=== PATIENT | male | born 1945 | race Caucasian/White ===

== ENCOUNTER 2016-05-28 14:17 | Emergency (ER) | payer MEDICARE, MEDICAID ==
[2016-05-28 16:53] VITALS: BP 107/72
--- NOTE | 2016-05-28 17:07 | UC ---
Respiratory Complaint HPI - HPI Summary HPI Summary: Pt is [facility] by caregiver [facility]. weekend caregiver reports that pt has had a cough and fatigue X 2 days. Caregiver reports that pt c/o generalized malaise X 2-3 days and sleeping more than usual. Pt has c/o sore throat. Pt is a resident in pen[facility] and has cognitive and physical limitations. - History of Current Complaint Chief Complaint: UCGeneralIllness Stated Complaint: upper respiratory complaint Time Seen by Provider: 05/28/16 16:55 Hx Obtained From: Family/Ship Fitter Onset/Duration: Gradual Onset, Lasting Days Timing: Constant Severity Initially: Mild Severity Currently: Mild Character: Cough: Nonproductive Aggravating Factors: Recumbent Position Associated Signs And Symptoms: Positive: Nasal Congestion Related History: Healthcare Acquired Pneumonia: Lives at [facility] - [facility] - Risk Factors Pulmonary Embolism Risk Factors: Negative Tuberculosis Risk Factors: Communal Living - Allergies/Home Medications Allergies/Adverse Reactions: Allergies Allergy/AdvReac Type Severity Reaction Status Date / Time No Known Allergies Allergy Verified 05/28/16 16:43 Home Medications: Home Medications Benzonatate CAP* [Tessalon 100 MG CAP*] 100 mg PO TID 05/28/16 [History Confirmed 05/28/16] Droxidopa [Northera] 600 mg PO TID 05/28/16 [History Confirmed 05/28/16] Primidone TAB(*) [Mysoline TAB(*)] 50 mg PO DAILY 05/28/16 [History Confirmed ] Primidone TAB(*) [Mysoline TAB(*)] 100 mg PO BEDTIME 05/28/16 [History Confirmed 05/28/16] PMH/Surg Hx/FS Hx/Imm Hx Previously Healthy: No - see pmh, lives in [facility]iary Respiratory History Of: Reports: COPD Neurological History Of: Reports: Seizures - Surgical History Surgical History: Yes Surgery Procedure, Year, and Place: Gallbladder, Bilateral cataract surgery - Family History Known Family History: Positive: Other - positive [facility] for cough - Social History Occupation: Disabled Lives: Alf Alcohol Use: None Substance Use Type: None Smoking Status (MU): Never Smoked Tobacco Review of Systems Constitutional: Fatigue Skin: Negative Eyes: Negative ENT: Sore Throat Respiratory: Cough Cardiovascular: Negative Gastrointestinal: Negative Genitourinary: Negative Motor: Negative Neurovascular: Negative Musculoskeletal: Negative Neurological: Negative, Other - cognitive and physcial disability pre-existing Psychological: Negative All Other Systems Reviewed And Are Negative: Yes Physical Exam Triage Information Reviewed: Yes Appearance: Well-Appearing, Thin, Other: - resting comfortably in wheelchair Vital Signs: Initial Vital Signs Temp 99.0 F 05/28/16 16:46 Pulse 84 05/28/16 16:46 Resp 18 05/28/16 16:46 BP 107/72 05/28/16 16:46 Pulse Ox 100 05/28/16 16:46 Vital Signs Reviewed: Yes Eye Exam: Normal ENT Exam: Normal Neck exam: Normal Respiratory Exam: Normal Respiratory: Positive: Normal breath sounds, No respiratory distress Cardiovascular Exam: Normal Musculoskeletal Exam: Other Musculoskeletal: Positive: Strength Limited @ - sitting in wheelchair, ROM Limited @ - sitting in wheelchair, Neurological Exam: Other Neurological: Positive: Alert Psychological Exam: Other - cognitive disability Skin Exam: Normal UC Diagnostic Evaluation - Laboratory O2 Sat by Pulse Oximetry: 100 Respiratory Course/Dx - Differential Dx/Diagnosis Differential Diagnosis/HQI/PQRI: Bronchitis, Other - URI Provider Diagnoses: URI. acute cough. sore throat Discharge - Discharge Plan Condition: Stable Disposition: HOME Prescriptions: predniSONE TAB* [Deltasone TAB*] 30 mg PO DAILY #12 tab Patient Education Materials: Upper Respiratory Infection (ED), Acute Cough (ED) Referrals: Rose Eduardo MD [Medical Doctor] - 1 Day (Please follow up with your PCP in 1 day or as needed. If unable to get a timely appointment with your PCP pleae return to clinic as needed. )
== END 2016-05-28 17:22 | disposition home or self-care (01) ==
LOC: UCCORT 14:17
DX: J06.9 Acute upper respiratory infection, unspecified (principal); R05 Cough; J02.9 Acute pharyngitis, unspecified; Z90.49 Acquired absence of other specified parts of digestive tract
CPT/HCPCS: 99212; G0463

== ENCOUNTER 2017-10-23 08:31 | Emergency (ER) | payer MEDICARE, MEDICAID ==
[2017-10-23 08:46] VITALS: BP 112/70
--- NOTE | 2017-10-23 09:16 | RAD ---
HISTORY: left hand swelling , no known injury COMPARISONS: None VIEWS: 3, Frontal, lateral, and oblique views of the left hand FINDINGS: BONE DENSITY: Normal. BONES: There is chronic appearing post traumatic deformity of the distal radius and ulna. 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 There is osteoarthritis of the first CMC and STT joints. There is mild osteoarthritis of the interphalangeal joints.. ALIGNMENT: There is no dislocation. SOFT TISSUES: Unremarkable. OTHER FINDINGS: None. 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 NO ACUTE OSSEOUS INJURY. IF SYMPTOMS PERSIST, RECOMMEND REPEAT IMAGING
--- NOTE | 2017-10-23 09:37 | UC ---
Hand/Wrist HPI - HPI Summary HPI Summary: left hand / wrist swelling x 1 day the swelling was noted by the staff no known injury , denies any pain - History Of Current Complaint Chief Complaint: UCUpperExtremity Stated Complaint: LEFT HAND SWELLING Time Seen by Provider: 10/23/17 08:48 Hx Obtained From: Patient, Family/Slot Machine Repairer Onset/Duration: Gradual Onset, Lasting Days - 1, Still Present Severity Initially: Moderate Severity Currently: Moderate Pain Intensity: 0 Pain Scale Used: no pain Aggravating Factor(s): Other - nothing Alleviating Factor(s): Nothing Associated Signs And Symptoms: Positive: Swelling. Negative: Redness, Bruising , Fever, Weakness, Numbness/Tingling - Allergies/Home Medications Allergies/Adverse Reactions: Allergies Allergy/AdvReac Type Severity Reaction Status Date / Time No Known Allergies Allergy Verified 10/23/17 08:46 Home Medications: Home Medications Amantadine CAP* [Symmetrel CAP*] 50 mg PO DAILY 10/23/17 [History Confirmed ] Carbidopa/Levodop 25/100 MG(*) [Sinemet 25/100 TAB(*)] 2 tab PO SEE INSTRUCTIONS 10/23/17 [History Confirmed 10/23/17] Donepezil TAB* [Aricept 5 MG TAB*] 5 mg PO DAILY 10/23/17 [History Confirmed ] Multivit-Min/FA/Lycopen/Lutein [Centrum Silver Men Tablet] 1 each PO DAILY 10/23 [History Confirmed 10/23/17] PMH/Surg Hx/FS Hx/Imm Hx - Additional Past Medical History Additional PMH: Parkinson , - Surgical History Surgical History: Yes Surgery Procedure, Year, and Place: Gallbladder, Bilateral cataract surgery - Family History Known Family History: Positive: Other - positive [facility] for cough Negative: Diabetes - Social History Alcohol Use: None Substance Use Type: None Smoking Status (MU): Never Smoked Tobacco Review of Systems Constitutional: Negative Skin: Negative Is Patient Immunocompromised?: No All Other Systems Reviewed And Are Negative: Yes Physical Exam Triage Information Reviewed: Yes Appearance: Well-Appearing, No Pain Distress, Well-Nourished Vital Signs: Initial Vital Signs Temp 98.2 F 10/23/17 08:41 Pulse 85 10/23/17 08:41 Resp 17 10/23/17 08:41 BP 112/70 10/23/17 08:41 Pulse Ox 99 10/23/17 08:41 Vital Signs Reviewed: Yes Eye Exam: Normal ENT: Positive: Normal ENT inspection, Hearing grossly normal, Pharynx normal Neck: Positive: Supple Respiratory: Positive: Chest non-tender, Lungs clear, Normal breath sounds Cardiovascular: Positive: RRR, No Murmur, Pulses Normal Musculoskeletal: Positive: Other: - + resting tremor , left Wrist : + swelling , no erythema, no tenderness, decrease ROM on flexion and extension Diagnostics - Laboratory Diagnostic Studies Completed/Ordered: xray left hand : IMPRESSION: 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 OSTEOARTHRITIS OF THE WRIST. NO ACUTE OSSEOUS INJURY. 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 NO ACUTE OSSEOUS INJURY. IF SYMPTOMS PERSIST, RECOMMEND REPEAT IMAGING - Billing Disposition and Condition Condition: STABLE Disposition: Home
== END 2017-10-23 09:36 | disposition home or self-care (01) ==
LOC: UCCORT 08:31
DX: M19.032 Primary osteoarthritis, left wrist (principal); M21.832 Other specified acquired deformities of left forearm; G20 Parkinson's disease
CPT/HCPCS: 99211; G0463

== ENCOUNTER 2017-12-28 18:04 | Emergency (ER) | payer MEDICARE, MEDICAID ==
--- OUTSIDE RECORDS SUMMARY | 2017-12-28 18:59 | XMS REPORT ---
:1945 External Reference #:[id number] [facility] Address [address] [place] [address] Phone [phone] Care Team Providers Name Role Phone Erinn Ordaz M.D. 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 Primary Care Physician Unavailable Payers Type Date Identification Numbers Payment Provider Subscriber Medicare Primary Policy Number: [id number] Medicare Matt Portillo Group Name: Medicare [address] PayID: [id number] [place] [address] Medicaid Policy Number: [id number] Medicaid Matt Portillo Group Name: 2 1 [address] PayID: [id number] [place] [address] Problems Date Description Provider Status Onset: 03/17/2011 Active infantile autism Yolanda Whitehead NP Active Onset: 03/17/2011 Chronic obstructive lung disease Yolanda Whitehead NP Active Onset: 03/17/2011 Cataract Yolanda Whitehead NP Active Onset: 06/21/2016 Chronic hypotension Erinn Ordaz M.D. Active Onset: 06/21/2016 Parkinson's disease Erinn Ordaz M.D. Active Onset: 12/13/2017 Immunization Rena Cardenas MD Active Onset: 12/13/2017 Abnormal weight gain Rena Cardenas MD Active Onset: 04/19/2017 Urine leukocyte test=+ Rena Cardenas MD Resolved Resolved: 06/12/2017 Family History Date Family Member(s) Problem(s) Comments Father due to Hypertension () Father due to Bladder Cancer () Father due to Diabetes () Mother due to jean claude's granulamotosis () First Brother IgA nephropathy First Sister Diabetes Mellitus Type 2 Social History Type Date Description Comments Lives With jail 6 others Diet Healthy, Well Balanced Occupation Disabled Cigarette Use Never Smoked Cigarettes ETOH Use Never used alcohol Smoking Patient has never smoked Allergies, Adverse Reactions, Alerts Date Description Reaction Status Severity Comments 07/18/2014 NKDA active Medications Medication Date Status Form Strength Qnty SIG Indications Ordering Provider Acetaminophen 12/13 Active Tablets 325mg 120ta 2 tabs by Ronald bs mouth every MD Rena 4 hours as needed for pain, headache, temp >101 Tussin DM 12/13 Active Liquid 100-10mg/ 355ml 10 ml q4h Ronald 5ML prn cough MD Rena Bacitracin 12/13 Active Ointment 500Unit/G 2043. apply to Ronald (External) M 800gm minoe cuts MD Rena and wounds 3x/day as needed Amantadine HCL 11/06 Active Tablets 100mg 90tab / Tab by Dayan s mouth once Nafisa, daily PNP-BC, [employer], Ibclc Jonah Elastic 10/25 Active Mis BNDG 3" Ok to D/C Cee Hanley/ use of jonah Nafisa, bandage PNP-BC, [employer], Ibclc Pseudoephedrine 12/12 Active Tablets 30mg 45tab Take 2 Sushma, s Tablets By Homer Plasencia Every M.DChaparrita 4 Hours as Needed For Nasal Congestion /Runny Nose *Max Daily Dose: 8 Tablets Cerovite Senior 09/12 Active Tablets 90tab Take 1 Sushma, s Tablet By Ernin Mouth Daily M.D. Northera 04/19 Active Capsules 300mg 180ca take 2 Brian ps capsules by MD Sid mouth three times daily. take last dose at least 3hours before bedtime Kaopectate Extra Active Suspension 525mg/15M 2 tbsp Q Unknown Strength /0000 L Loose Stool prn Mylanta Active Suspension 200-200-2 1 tbsp Q4H Unknown /0000 0mg/5ML prn Upset Stomach Hydrocortisone Active Cream 1% Apply qid Unknown Acetate 0000 prn For Minor Skin Rashes/Itch ing Donepezil HCL 00 Active Tablets 5mg 1 by mouth Unknown /0000 Dispers every day Carbidopa-Levodo 0000 Active Tablets 25-100mg take 2.5 Unknown pa /0000 tablets bid at 0700, 1500 Carbidopa-Levodo 0000 Active Tablets 25-100mg take 2 Unknown pa /0000 tablets twice daily at 1100 and 1900 Fluconazole 07/12 Hx Tablets 200mg 14tab 1 tab PO Q B37.0 Sushma, s daily x Erinn, - 7-14 days, M.D. 12/13 d/c 14 days if infection completely resolved Nystatin 07/10 Hx Suspension 082821Tbi 60ml 4 ml by B37.9 Qiana t/ML mouth four Marlyss - times a day B., PA 07/12 - swish in mouth and spit for 7 days. Benzonatate 05/26 Hx Capsules 100mg 30cap 1 cap by R05 Sushma s mouth three Erinn, - times a day M.D. 07/12 prn cough Midodrine HCL 03/30 Hx Tablets 2.5mg 90tab 1 tab tid Dayan s should not Nafisa, be taken PNP-BC, within 4 [employer], hours of Ibclc bedtime Northera 03/30 Hx Capsules 100mg 90cap 1 by mouth Brian s three times MD Sid - a day. 04/19 increase to desired effect up to 600 mg three times a day as instructed Primidone 03/09 Hx Tablets 50mg 90tab Take 1 I95.0 Dayan s Tablet By Nafisa, - Mouth Every PNP-BC, 07/12 Morning ; [employer] Take 2 Ibclc Tablets By Mouth AT Bedtime Multivitamin 02/08 Hx Tablets Adlt 50+ 90tab 1 tab PO Q Sushma, Adults 50+ /2015 s daily Carmel Plasencia Midodrine HCL 12/15 Hx Tablets 5mg 90tab take 1 tab Brian s by mouth MD Sid - three times 03/30 daily Northera 12/14 Hx Capsules 100mg 450ca Days 1-2: 1 Brian ps Capsule 3 MD Sid Times Daily, Days 3-4: 2 Capsules 3 Times Daily,Days 5-6: 3 Capsules 3 Times Daily, Days 7-8: 4 Capsule Carbidopa-Levodo 09/30 Hx Tablets 25-100mg 180ta Take 2 kayleigh Eduardo bs Tablets By Rose - Mouth 3 MD 12/13 Times Daily /2016 Sinemet 06/14 Hx Tablets 25-100mg 90tab 1 by mouth Alesha s every 8 Rose - MD sivakumar 09/30 SM Complete 01/25 Hx Tablets 30tab Take 1 Anneliese Eduardo s Tablet By Rose Mouth Daily , 8 Hour Pain 07/29 Hx Tablets ER 650mg 2 by mouth Alesha Relief every day q Rose 4 hrs MD nevin needed Bacitracin 07/29 Hx Ointment 500Unit/G 3.5un bid prn Alesha /2013 M its MD Rose Bismuth 07/29 Hx Suspension 262mg/15M 2 Jagdeep Eduardoalicylate L tablespoon Rose by mouth MD after each loose bm as needed Aluminum-Magnesi 07/29 Hx Suspension 200-200-2 by mouth q4 Alesha -Simethicone 0mg/5ML hours as Rose needed MD Hydrocortisone 07/29 Hx Cream 1% as needed Alesha Plus MD Rose Dextromethorphan 07/29 Hx Solution 10-100mg/ 400un 1 teaspoon Alesha, -Guaifenesin 5ML its by mouth Rose q6hr MD nevin needed Pseudoephedrine 07/29 Hx Tablets 30mg 30tab two tab by Alesha HCL s mouth every Rose 4 hour MD nevin needed nasal drainage Triamcinolone 10/30 Hx Cream 0.1% 30uni apply Alesha Acetonide ts spaingly Rose ga MD Multi 00 Hx Tablets 30tab 1 by mouth Alesha Vitamin/Minerals / s every day Rose Full Spectrum - MD 01/25 Multivital-M Hx Tablets 90tab 1 by mouth Sushma, / s every day Roxana Plasencia M.D. 02/08 Flomax Hx Capsules 0.4mg 30cap 1 by mouth Alesha, /0000 s every day Rose Schmidt MD 12/05 Carbidopa-Levodo Hx Tablets 25-100mg Take 2 Unknown pa /0000 Tablets By Mouth 3 Times Daily Bacitracin Hx Ointment 500Unit/G Apply as Unknown (External) /0000 M Needed To Minor Cuts/Wounds Until Healed Robitussin DM Hx Syrup 100-10mg/ 2 teaspoons Unknown /0000 5ML by mouth every 4 hours as needed for minor cough Sudafed Hx Tablets 30mg 2 tabs po Unknown /0000 q4h prn - nasal 12/12 congestion runny nose Mapap Hx Tablets 325mg 100ta Take 2 Sushma, /0000 bs Tablets By Erinn, - Mouth Every M.D. 12/13 4 Hours Needed For Temp>101/ Discomfort *Max Daily Dose: 8 Tablets Sinemet Hx Tablets 25-100mg 240ta 2 and 1/2 Ronald, /0000 bs tabs bid MD Rena and 2 tabs bid, 9 tabs total Acetaminophen Hx Solution 325mg/10. Unknown /0000 15ML Immunizations CPT Code Status Date Vaccine Lot # [id number] Given 12/13/2017 Influenza High Dose [id number] 72428 Given 12/13/2016 Influenza High Dose [id number] Given 06/21/2016 Tdap injection [id number] 37813 Given 06/21/2016 Pneumococcal Conjugate Vaccine 13 Valent For [id number] Intramuscular Use Q2038 Given 12/06/2015 Influenza Vaccine (Fluzone) Age 3 And Older [id number] Q2038 Given 01/08/2015 Influenza Vaccine (Fluzone) Age 3 And Older 23834 Given 02/05/2014 flu vaccination 65984 Given 01/01/2012 Pneumovax Injection 84001 Given 01/01/2012 flu vaccination 32739 Given 11/28/2010 flu vaccination 29276 Given 12/28/2009 flu vaccination 09838 Given 02/16/2009 flu vaccination 19823 Given 02/16/2009 H1N1 Immuniation Adminstration 04872 Given 12/11/2008 Hepatitis B Ofelia Adoles For Intramuscular Use 91527 Given 07/31/2008 Hepatitis B Ofelia Adoles For Intramuscular Use 72865 Given 06/11/2008 Hepatitis B Ofelia Adoles For Intramuscular Use Vital Signs Date Vital Result Comment 12/13/2017 BP Systolic 114 mmHg BP Diastolic 74 mmHg Body Temperature 96.3 F Heart Rate 90 /min Respiratory Rate 18 /min Height 71 inches 5'11" Weight 176.00 lb BMI (Body Mass Index) 24.5 kg/m2 BSA (Body Surface Area) 2.00 m2 [place] body weight in kilograms 78 O2 % BldC Oximetry 96 % 11/06/2017 Height 71 inches 5'11" [place] body weight in kilograms 78 08/17/2017 BP Systolic Sitting Left Arm 106 mmHg BP Diastolic Sitting Left Arm 60 mmHg Heart Rate 84 /min Respiratory Rate 16 /min Height 71 inches 5'11" Weight 169.00 lb BMI (Body Mass Index) 23.6 kg/m2 BSA (Body Surface Area) 1.96 m2 [place] body weight in kilograms 78 O2 % BldC Oximetry 98 % Room air 08/08/2017 BP Systolic Sitting Left Arm 116 mmHg BP Diastolic Sitting Left Arm 68 mmHg Body Temperature 97.8 F Heart Rate 76 /min Height 71 inches 5'11" Weight 165.00 lb BMI (Body Mass Index) 23.0 kg/m2 BSA (Body Surface Area) 1.94 m2 [place] body weight in kilograms 78 06/13/2017 BP Systolic Sitting Left Arm 118 mmHg BP Diastolic Sitting Left Arm 70 mmHg Heart Rate 80 /min Respiratory Rate 14 /min Height 72 inches 6'0" Weight 167.25 lb BMI (Body Mass Index) 22.7 kg/m2 BSA (Body Surface Area) 1.97 m2 [place] body weight in kilograms 81 04/19/2017 BP Systolic 108 mmHg BP Diastolic 69 mmHg Body Temperature 97.6 F Heart Rate 85 /min Respiratory Rate 17 /min Height 72 inches 6'0" Weight 169.00 lb BMI (Body Mass Index) 22.9 kg/m2 BSA (Body Surface Area) 1.98 m2 [place] body weight in kilograms 81 O2 % BldC Oximetry 98 % 02/12/2017 BP Systolic 96 mmHg BP Diastolic 62 mmHg Heart Rate 82 /min Respiratory Rate 16 /min Height 72 inches 6'0" Weight 164.00 lb BMI (Body Mass Index) 22.2 kg/m2 BSA (Body Surface Area) 1.96 m2 [place] body weight in kilograms 81 12/13/2016 BP Systolic 138 mmHg BP Diastolic 82 mmHg Height 72 inches 6'0" Weight 163.00 lb BMI (Body Mass Index) 22.1 kg/m2 BSA (Body Surface Area) 1.95 m2 [place] body weight in kilograms 81 10/10/2016 BP Systolic Sitting Left Arm 118 mmHg BP Diastolic Sitting Left Arm 68 mmHg Heart Rate 76 /min Respiratory Rate 16 /min Height 72 inches 6'0" Weight 159.00 lb BMI (Body Mass Index) 21.6 kg/m2 BSA (Body Surface Area) 1.93 m2 [place] body weight in kilograms 81 07/12/2016 BP Systolic Sitting Left Arm 96 mmHg BP Diastolic Sitting Left Arm 60 mmHg Height 72 inches 6'0" Weight 156.38 lb BMI (Body Mass Index) 21.2 kg/m2 BSA (Body Surface Area) 1.92 m2 [place] body weight in kilograms 81 07/10/2016 BP Systolic Sitting Right Arm 98 mmHg BP Diastolic Sitting Right Arm 58 mmHg BP Systolic Standing Resting Right Arm 96 mmHg BP Diastolic Standing Resting Right Arm 60 mmHg Heart Rate 72 /min Respiratory Rate 24 /min Height 72 inches 6'0" Weight 157.00 lb BMI (Body Mass Index) 21.3 kg/m2 BSA (Body Surface Area) 1.92 m2 06/21/2016 BP Systolic Sitting Left Arm 106 mmHg BP Diastolic Sitting Left Arm 54 mmHg Heart Rate 62 /min Height 72 inches 6'0" Weight 156.19 lb BMI (Body Mass Index) 21.2 kg/m2 BSA (Body Surface Area) 1.92 m2 [place] body weight in kilograms 81 05/26/2016 BP Systolic Sitting Left Arm 110 mmHg BP Diastolic Sitting Left Arm 60 mmHg Body Temperature 97.8 F Heart Rate 72 /min Respiratory Rate 16 /min Height 71 inches 5'11" Weight 158.06 lb BMI (Body Mass Index) 22.0 kg/m2 BSA (Body Surface Area) 1.91 m2 05/03/2016 BP Systolic Sitting Left Arm 92 mmHg BP Diastolic Sitting Left Arm 50 mmHg Heart Rate 68 /min Respiratory Rate 16 /min Height 71 inches 5'11" Weight 153.00 lb BMI (Body Mass Index) 21.3 kg/m2 BSA (Body Surface Area) 1.88 m2 03/30/2016 BP Systolic Sitting Right Arm 104 mmHg BP Diastolic Sitting Right Arm 52 mmHg Body Temperature 98.1 F Heart Rate 56 /min Respiratory Rate 16 /min Height 71 inches 5'11" Weight 159.00 lb BMI (Body Mass Index) 22.2 kg/m2 BSA (Body Surface Area) 1.91 m2 03/09/2016 BP Systolic Sitting Right Arm 106 mmHg BP Diastolic Sitting Right Arm 64 mmHg Body Temperature 97.9 F Heart Rate 72 /min Respiratory Rate 16 /min Height 71 inches 5'11" Weight 161.12 lb BMI (Body Mass Index) 22.5 kg/m2 BSA (Body Surface Area) 1.92 m2 [place] body weight in kilograms 78 02/01/2016 BP Systolic Sitting Left Arm 118 mmHg BP Diastolic Sitting Left Arm 74 mmHg Heart Rate 78 /min Respiratory Rate 16 /min 12/21/2015 BP Systolic Sitting Left Arm 110 mmHg BP Diastolic Sitting Left Arm 74 mmHg Heart Rate 88 /min Respiratory Rate 16 /min Height 70 inches 5'10" Weight 169.00 lb BMI (Body Mass Index) 24.2 kg/m2 BSA (Body Surface Area) 1.94 m2 [place] body weight in kilograms 75 12/15/2015 BP Systolic Sitting Left Arm 100 mmHg BP Diastolic Sitting Left Arm 64 mmHg Heart Rate 78 /min Height 71 inches 5'11" Weight 168.00 lb BMI (Body Mass Index) 23.4 kg/m2 BSA (Body Surface Area) 1.96 m2 12/06/2015 BP Systolic Lying Down Resting Right Arm 98 mmHg BP Diastolic Lying Down Resting Right Arm 60 mmHg Heart Rate 97 /min Respiratory Rate 18 /min Height 71 inches 5'11" Weight 170.00 lb BMI (Body Mass Index) 23.7 kg/m2 BSA (Body Surface Area) 1.97 m2 [place] body weight in kilograms 78 O2 % BldC Oximetry 98 % 06/15/2015 BP Systolic Sitting Left Arm 114 mmHg BP Diastolic Sitting Left Arm 66 mmHg Heart Rate 64 /min Respiratory Rate 19 /min Height 71 inches 5'11" Weight 175.00 lb BMI (Body Mass Index) 24.4 kg/m2 BSA (Body Surface Area) 1.99 m2 02/08/2015 BP Systolic 106 mmHg BP Diastolic 60 mmHg Height 71 inches 5'11" Weight 169.00 lb BMI (Body Mass Index) 23.6 kg/m2 BSA (Body Surface Area) 1.96 m2 08/06/2014 BP Systolic Sitting Left Arm 112 mmHg BP Diastolic Sitting Left Arm 62 mmHg Height 71.5 inches 5'11.50" Weight 162.00 lb BMI (Body Mass Index) 22.3 kg/m2 BSA (Body Surface Area) 1.94 m2 02/05/2014 BP Systolic 100 mmHg BP Diastolic 64 mmHg Body Temperature 96.7 F Heart Rate 76 /min Height 71.5 inches 5'11.50" Weight 167.00 lb 07/29/2013 BP Systolic 110 mmHg BP Diastolic 72 mmHg Heart Rate 72 /min Height 71.5 inches 5'11.50" Weight 165.00 lb 01/29/2013 BP Systolic 118 mmHg BP Diastolic 72 mmHg Weight 162.00 lb 10/30/2012 BP Systolic 108 mmHg BP Diastolic 64 mmHg Height 70.5 inches 5'10.50" Weight 155.00 lb 07/18/2012 BP Systolic 114 mmHg BP Diastolic 64 mmHg Heart Rate 80 /min Respiratory Rate 18 /min Height 71.5 inches 5'11.50" Weight 160.00 lb 06/26/2012 BP Systolic 118 mmHg BP Diastolic 72 mmHg Heart Rate 80 /min Respiratory Rate 18 /min Weight 159.00 lb 12/18/2011 BP Systolic 118 mmHg BP Diastolic 78 mmHg Height 71.5 inches 5'11.50" Weight 178.00 lb 06/26/2011 BP Systolic 124 mmHg BP Diastolic 76 mmHg Heart Rate 80 /min Respiratory Rate 18 /min Height 71.5 inches 5'11.50" Weight 178.00 lb 05/01/2011 BP Systolic 118 mmHg BP Diastolic 72 mmHg Height 71.5 inches 5'11.50" Weight 183.00 lb 03/15/2011 BP Systolic 110 mmHg BP Diastolic 66 mmHg Heart Rate 78 /min Respiratory Rate 18 /min Height 71.6 inches 5'11.60" Weight 181.00 lb 01/23/2011 BP Systolic 118 mmHg BP Diastolic 76 mmHg Height 71.5 inches 5'11.50" Weight 176.00 lb 12/09/2010 BP Systolic 124 mmHg BP Diastolic 76 mmHg Body Temperature 98.3 F Height 71.50 inches 5'11.50" Weight 176.00 lb 11/03/2010 BP Systolic 116 mmHg BP Diastolic 76 mmHg Body Temperature 98.2 F Height 71.5 inches 5'11.50" Weight 175.00 lb Results Test Date Test Result H/L Range Note Urine Dipstick 12/13/2017 Ua Color yellow Yellow Ua Clarity clear Clear Ua Leuko neg Negative Ua Nitrite neg Negative Ua Urobilinogen 0.2 0.2 - 1.0 E.U./dL Ua Protein neg Negative Ua PH 7.0 6.5-7.5 Ua Blood neg Negative Ua Specific Saline 1.005 Low 1.010-1.030 Ua Ketones neg Negative Ua Bilirubin neg Negative Ua Glucose neg Negative Urine Culture 04/19/2017 Urine Culture URETHRAL ALEXEI 1 Quantity 10,000 - 50,000 <SEE NOTE> 1, 2 Laboratory test finding 06/17/2016 Prostate Specific 8.63 ng/mL < 4.0 3 , 4 Antigen Ua RFX Micro & Culture II 03/28/2016 Urine Color YELLOW Yellow 5 Urine Clarity CLEAR Clear 5 Urine Glucose - Dipstick NEGATIVE mg/dL Negative 5 Urine Bilirubin - Dipstick NEGATIVE Negative 5 Urine Ketone NEGATIVE mg/dL Negative 5 Urine Specific Saline 1.020 1.010-1.030 5 Urine Blood NEGATIVE Negative 5 Urine PH 6.5 6.5-7.5 5 Urine Protein - Dipstick NEGATIVE mg/dL Negative 5 Urine Urobilinogen - Dipstick 0.2 E.U./dL 0.2-1.0 5 Urine Nitrite - Dipstick NEGATIVE Negative 5 Urine Leuk Esterase NEGATIVE Negative 5 Source: URINE, CLEAN CAT <SEE NOTE> 5, 6 Laboratory test finding 03/28/2016 Urine Bilirubin Negative Negative Urine Ketones Negative Negative Urine Leukocyte Esterase Negative Negative Urine Nitrite Negative Negative Urine Protein Negative Negative Urine Urobilinogen 0.2 0.2-1.0 Urine Glucose (Ua) 03/28/2016 Urine Glucose (Ua) Negative Negative CBS W/Automated Diff 03/28/2016 White Blood Count 6.1 K/uL 3.4-10.5 5 Red Blood Count 4.93 M/uL 4.20-5.80 5 Hemoglobin 15.0 gm/dL 12.8-17.0 5 Hematocrit 43.5 % 38.0-48.0 5 Mean Cell Volume 88.2 fl 80.0-96.0 5 Mean Corpuscular HGB 30.4 pg 27.0-33.0 5 Mean Corpuscular HGB Conc 34.5 g/dL 31.7-36.0 5 Platelet Count 230 K/uL 150-400 5 Red Cell Distri Width SD 41.4 fl 36-51 5 Red Cell Distri Width %CV 13.1 % 11.6-15.8 5 Mean Platelet Volume 9.8 fL 6.6-10.6 5 Neut% 47.7 % 33.0-73.0 5 Lymph % 34.6 % 20.0-42.0 5 [place] % 11.8 % High 0.0-10.0 5 Eo% 5.2 % High 0.0-5.0 5 Bas% 0.7 % 0.1-1.0 5 Neut# 2.92 K/uL 1.8-7.0 5 Lymph # 2.12 K/uL 1.0-4.0 5 [place] # 0.72 K/uL 0.0-0.8 5 Eos # 0.32 K/uL 0.0-0.5 5 Baso # 0.04 K/uL Low 0.1-0.2 5 Laboratory test finding 03/28/2016 Alanine Aminotransferase (Alt/SGPT) 34 12-78 Albumin 3.6 3.4-5.0 Albumin/Globulin Ratio 1.0 Alkaline Phosphatase 92 45-117 Anion Gap 8 8-16 Aspartate Amino Transf (Ast/Sgot) 22 15-37 BUN/Creatinine Ratio 18.8 Basophils # (Auto) 0.04 Low 0.1-0.2 Basophils (%) (Auto) 0.7 0.1-1.0 Blood Urea Nitrogen 17 7-18 Calcium Level 8.7 8.5-10.1 Carbon Dioxide Level 30 21-32 Chloride Level 108 High 98-107 Creatinine 0.9 0.6-1.3 Eosinophils # (Auto) 0.32 0.0-0.5 Eosinophils (%) (Auto) 5.2 High 0.0-5.0 Globulin 3.6 1.9-4.3 Glucose Screen 80 74-106 Lymphocytes (%) (Auto) 34.6 20.0-42.0 Mean Corpuscular Hemoglobin 30.4 27.0-33.0 Mean Corpuscular Hemoglobin Concent 34.5 31.7-36.0 Mean Corpuscular Volume 88.2 80.0-96.0 Monocytes # (Auto) 0.72 0.0-0.8 Monocytes (%) (Auto) 11.8 High 0.0-10.0 Neutrophils (%) (Auto) 47.7 33.0-73.0 Potassium Level 4.1 3.5-5.1 RDW Coefficient of Variation 13.1 11.6-15.8 Red Cell Distribution Width 41.4 36-51 Sodium Level 146 High 136-145 Total Bilirubin 1.4 High 0.2-1.0 Total Protein 7.2 6.4-8.2 Lymphocytes # (Auto) 03/28/2016 Lymphocytes # (Auto) 2.12 1.0-4.0 Neutrophils # (Auto) 03/28/2016 Neutrophils # (Auto) 2.92 1.8-7.0 Total Creatine Kinase 03/28/2016 Total Creatine Kinase 153 39-308 Prostate Specific 03/09/2016 Prostate Specific 6.2 High 0.0-4.0 Antigen Total Antigen Total Percent Free Prostate 03/09/2016 Percent Free Prostate 12.6 . Specific Ag Specific Ag Free Prostate Specific 03/09/2016 Free Prostate Specific 0.78 N/A Antigen Antigen Laboratory test 03/09/2016 Thyroid Stimulating 1.62 0.30-4.20 finding Hormone (TSH) PSA (Free And Total) 03/09/2016 Prostate-specific 6.2 ng/mL High 0.0-4.0 7, 8 antigen,Seru PSA,Free 0.78 ng/mL N/A 7 %Free PSA 12.6 % . 7, 9 Comprehensive Metabolic Panel 03/09/2016 Glucose 76 mg/dL 74-106 7 BUN 18 mg/dL 7-18 7 Creatinine 1.0 mg/dL 0.6-1.3 7 Glom Filtration Rate, Estimate >60 mL/min >60 7 If >60 mL/min >60 7, 10 BUN/Creat 18.0 ratio 7 Sodium 142 mmol/L 136-145 7 Potassium 4.3 mmol/L 3.5-5.1 7 Chloride 108 mmol/L High 98-107 7 Carbon Dioxide 25 mmol/L 21-32 7 Anion Gap 9 mEq/L 8-16 7 Calcium 8.5 mg/dL 8.5-10.1 7 Total Protein 7.5 g/dL 6.4-8.2 7 Albumin 3.8 g/dL 3.4-5.0 7 Globulin 3.7 g/dL 1.9-4.3 7 Alb/Glob 1.0 ratio 7 Bilirubin,Total 2.0 mg/dL High 0.2-1.0 7 Sgot/Ast 36 U/L 15-37 7 SGPT/Alt 37 U/L 12-78 7 Alkaline Phosphatase 91 U/L 45-117 7 Reflex add FT3? Y 7 Reflex add FT4? Y 7 TSH Reflex FT4 And/Or FT3 03/09/2016 Thyroid Stim Hormone 1.62 uIU/mL 0.30-4.20 7 Reflex add FT3? Y 7 Reflex add FT4? Y 7 CBS W/Automated Diff 11/28/2015 White Blood Count 7.2 K/uL 3.4-10.5 11 Red Blood Count 5.20 M/uL 4.20-5.80 11 Hemoglobin 15.7 gm/dL 12.8-17.0 11 Hematocrit 46.0 % 38.0-48.0 11 Mean Cell Volume 88.5 fl 80.0-96.0 11 Mean Corpuscular HGB 30.2 pg 27.0-33.0 11 Mean Corpuscular HGB Conc 34.1 g/dL 31.7-36.0 11 Platelet Count 230 K/uL 150-400 11 Red Cell Distri Width SD 41.7 fl 36-51 11 Red Cell Distri Width %CV 13.0 % 11.6-15.8 11 Mean Platelet Volume 10.0 fL 6.6-10.6 11 Neut% 49.5 % 33.0-73.0 11 Lymph % 34.8 % 17.0-56.0 11 [place] % 11.5 % High 0.0-10.0 11 Eo% 3.5 % 0.0-5.0 11 Bas% 0.7 % 0.1-1.0 11 Neut# 3.59 K/uL 1.8-7.0 11 Lymph # 2.52 K/uL 1.8-7.0 11 [place] # 0.83 K/uL High 0.0-0.8 11 Eos # 0.25 K/uL 0.0-0.5 11 Baso # 0.05 K/uL Low 0.1-0.2 11 Comprehensive Metabolic Panel 11/28/2015 Glucose 109 mg/dL High 74-106 11 BUN 19 mg/dL High 7-18 11 Creatinine 1.2 mg/dL 0.6-1.3 11 Glom Filtration Rate, Estimate >60 mL/min >60 11 If >60 mL/min >60 11, 12 BUN/Creat 15.8 ratio 11 Sodium 141 mmol/L 136-145 11 Potassium 4.6 mmol/L 3.5-5.1 11 Chloride 108 mmol/L High 98-107 11 Carbon Dioxide 27 mmol/L 21-32 11 Anion Gap 6 mEq/L Low 8-16 11 Calcium 8.3 mg/dL Low 8.5-10.1 11 Total Protein 7.2 g/dL 6.4-8.2 11 Albumin 3.7 g/dL 3.4-5.0 11 Globulin 3.5 g/dL 1.9-4.3 11 Alb/Glob 1.1 ratio 11 Bilirubin,Total 1.6 mg/dL High 0.2-1.0 11 Sgot/Ast 29 U/L 15-37 11 SGPT/Alt 14 U/L 12-78 11 Alkaline Phosphatase 94 U/L 45-117 11 Laboratory test finding 11/28/2015 CK 184 U/L 39-308 11 Troponin-I < 0.015 ng/mL 11, 13 Laboratory test finding 12/20/2014 RDW Coefficient of Variation 13.2 11.6 -15.8 Sodium Level 140 136-145 Urinalysis With Microscopic 12/20/2014 Urine Color ORANGE Yellow Urine Clarity SL CLOUDY Clear Urine Glucose - Dipstick NEGATIVE mg/dL Negative Urine Bilirubin - Dipstick NEGATIVE Negative Urine Ketone NEGATIVE mg/dL Negative Urine Specific Saline 1.020 1.010-1.030 Urine Blood LARGE High Negative Urine PH 6.0 Low 6.5-7.5 Urine Protein - Dipstick >=300 mg/dL High Negative Urine Urobilinogen - Dipstick 0.2 E.U./dL 0.2-1.0 Urine Nitrite - Dipstick POSITIVE High Negative Urine Leuk Esterase TRACE Negative Urine RBC TNTC rbc/hpf High 0-2 Urine WBC 20-30 wbc/hpf High 0-7 Urine Epithelial Cells FEW NONESEEN/lpf Laboratory test finding 12/20/2014 Culture If Indicated Comment See Note 14 Urine Screen See Note 15 Urine Culture See Note 16 Laboratory test finding 12/20/2014 Urine Bilirubin Negative Negative Urine Culture Reflexed Culture To Follow Urine Glucose (Ua) Negative Negative Urine Ketones Negative Negative Urine Leukocyte Esterase Trace Negative Urine Nitrite Positive High Negative Urine Urobilinogen 0.2 0.2-1.0 CBC 12/20/2014 White Blood Count 13.1 K/uL High 3.4-10.5 Red Blood Count 5.08 M/uL 4.20-5.80 Hemoglobin 15.2 gm/dL 12.8-17.0 Hematocrit 45.0 % 38.0-48.0 Mean Cell Volume 88.6 fl 80.0-96.0 Mean Corpuscular HGB 29.9 pg 27.0-33.0 Mean Corpuscular HGB Conc 33.8 g/dL 31.7-36.0 Platelet Count 280 K/uL 150-400 Red Cell Distri Width %CV 13.2 % 11.6-15.8 Mean Platelet Volume 9.2 fL 6.6-10.6 Basic Metabolic Panel 12/20/2014 Glucose 113 mg/dL High 74-106 BUN 27 mg/dL High 7-18 Creatinine 1.1 mg/dL 0.6-1.3 Glom Filtration Rate, Estimate >60 mL/min >60 If >60 mL/min >60 17 BUN/Creat 24.5 ratio Sodium 140 mmol/L 136-145 Potassium 4.0 mmol/L 3.5-5.1 Chloride 107 mmol/L 98-107 Carbon Dioxide 27 mmol/L 21-32 Anion Gap 6 mEq/L Low 8-16 Calcium 8.7 mg/dL 8.5-10.1 CBS W/Automated Diff 10/09/2014 White Blood Count 6.1 K/uL 3.4-10.5 Red Blood Count 4.90 M/uL 4.20-5.80 Hemoglobin 15.3 gm/dL 12.8-17.0 Hematocrit 44.5 % 38.0-48.0 Mean Cell Volume 90.8 fl 80.0-96.0 Mean Corpuscular HGB 31.2 pg 27.0-33.0 Mean Corpuscular HGB Conc 34.4 g/dL 31.7-36.0 Platelet Count 214 K/uL 150-400 Red Cell Distri Width SD 44.7 fl 36-51 Red Cell Distri Width %CV 13.6 % 11.6-15.8 Mean Platelet Volume 10.5 fL 6.6-10.6 Neut% 47.4 % 33.0-73.0 Lymph % 34.0 % 17.0-56.0 Barrow % 11.8 % High 0.0-10.0 Eo% 6.1 % High 0.0-5.0 Bas% 0.7 % 0.1-1.0 Neut# 2.88 K/uL 1.8-7.0 Lymph # 2.07 K/uL 1.8-7.0 [place] # 0.72 K/uL 0.0-0.8 Eos # 0.37 K/uL 0.0-0.5 Baso # 0.04 K/uL Low 0.1-0.2 Laboratory test finding 10/09/2014 TSH Reflex FT4 and/or 2.40 uIU/mL 0.36 -3.74 18 FT3 Laboratory test finding 10/09/2014 Basophils # (Auto) 0.04 Low 0.1-0.2 Basophils (%) (Auto) 0.7 0.1-1.0 Direct Bilirubin 0.3 High 0.0-0.2 Eosinophils # (Auto) 0.37 0.0-0.5 Eosinophils (%) (Auto) 6.1 High 0.0-5.0 Lymphocytes # (Auto) 2.07 1.8-7.0 Lymphocytes (%) (Auto) 34.0 17.0-56.0 Monocytes # (Auto) 0.72 0.0-0.8 Monocytes (%) (Auto) 11.8 High 0.0-10.0 Neutrophils # (Auto) 2.88 1.8-7.0 Neutrophils (%) (Auto) 47.4 33.0-73.0 RDW Coefficient of Variation 13.6 11.6-15.8 Red Cell Distribution Width 44.7 36-51 Reference Lab Test Comments See Note 19 Sodium Level 142 136-145 Testosterone Level [phone] Thyroid Stimulating Hormone (TSH) 2.40 0.36-3.74 Testosterone,Serum 10/09/2014 Testosterone,Serum 377 ng/dL [phone] Comment See Note 20 Laboratory test finding 10/09/2014 Prostate Specific Antigen 3.90 ng/mL 21 Liver Function Tests 10/09/2014 Total Protein 7.4 g/dL 6.4-8.2 Albumin 3.9 g/dL 3.4-5.0 Globulin 3.5 g/dL 1.9-4.3 Alb/Glob 1.1 ratio Bilirubin,Total 1.9 mg/dL High 0.2-1.0 Bilirubin,Direct 0.3 mg/dL High 0.0-0.2 Bilirubin,Indirect 1.6 mg/dL High 0.0-0.9 Sgot/Ast 22 U/L 15-37 SGPT/Alt 37 U/L 12-78 Alkaline Phosphatase 85 U/L 45-117 LDL Cholesterol Profile 10/09/2014 Cholesterol 161 mg/dL < 200 22 Triglycerides 83 mg/dL < 150 23 HDL Cholesterol 42 mg/dL > 40 24 LDL-Cholesterol 102 mg/dL < 100 25 Basic Metabolic Panel 10/09/2014 Glucose 87 mg/dL 74-106 BUN 19 mg/dL High 7-18 Creatinine 1.1 mg/dL 0.6-1.3 Glom Filtration Rate, Estimate >60 mL/min >60 If >60 mL/min >60 26 BUN/Creat 17.2 ratio Sodium 142 mmol/L 136-145 Potassium 4.1 mmol/L 3.5-5.1 Chloride 106 mmol/L 98-107 Carbon Dioxide 29 mmol/L 21-32 Anion Gap 7 mEq/L Low 8-16 Calcium 9.1 mg/dL 8.5-10.1 Urine Culture And Sensitivities 06/26/2012 Urine Culture (See Note) 27 Manual Differential 06/26/2012 Basophil % 1 % 0-2 Eosinophils % 1 % 0-6 Lymphocytes % 42 % 25-47 Neutrophil % 56 % 38-83 RBC Morphology Normal Normal CBC Auto Diff 06/26/2012 Hematocrit 50 % 42-52 Hemoglobin 16.4 g/dL 14.0-18.0 Mean Corpuscular HGB Conc 33 g/dL 31-36 Mean Corpuscular Hemoglobin 30 pg 27-31 Mean Corpuscular Volume 91 fL 80-94 Mean Platelet Volume 9 um3 7.4-10.4 Platelet Count 297 10^3/uL 150-450 Red Blood Count 5.46 10^6/uL High 4.0-5.4 Red Cell Distribution Width 13 % 10.5-15 White Blood Count 6.5 10^3/uL 4.8-10.8 Laboratory test 01/09/2012 Polyp Colon And/Or See Note 28 finding Rectum Lipid Profile 01/23/2011 Cholesterol 180 mg/dL Less Than 200 29 (Trig/Chol/HDL) Cholesterol/HDL Ratio 4.86 AVERAGE 1-4.97 High Density Lipoprotein 37 mg/dL Low 40-60 30 Low Density Lipoprotein 107 mg/dL High Less Than 100 31 Triglyceride 181 mg/dL 40-200 Comp Metabolic Panel 01/23/2011 Albumin 4.1 GM/DL 3.2-5.2 Albumin/Globulin Ratio 1.8 1-3 Alkaline Phosphatase 88 U/L 39-117 Alt (SGPT) 34 U/L 17-63 Anion Gap 9.0 mmol/L 2-11 32 Ast (Sgot) 28 U/L 12-42 BUN 12 mg/dL 6-24 BUN/Creatinine Ratio 10.9 8-20 Bilirubin Total 1.7 mg/dL High 0.4-1.5 33 Calcium 9.5 mg/dL 8.1-9.9 Chloride 103 mmol/L 101-111 Co2 (Carbon Dioxide) 31.0 mmol/L 22-32 Creatinine 1.1 mg/dL 0.50-1.40 Globulin 2.3 GM/DL 2-4 Glucose 87 mg/dL 70-100 One Over Creatinine 0.90 Potassium 4.6 mmol/L 3.5-5.0 Sodium 143 mmol/L 135-145 Total Protein 6.4 GM/DL 6.2-8.1 eGFR 86.4 > 60 34 eGFR Non- 67.2 > 60 CBC Auto Diff 01/23/2011 Abs Basophils 0 0-0.2 Abs Eosinophils 0.3 0-0.6 Abs Lymphs 2.2 1.0-4.8 Abs Mononuclear 0.6 0-0.8 Absolute Neutrophil Count 2.6 1.5-7.7 Basophil % 0.6 % 0-2 Eosinophil % 5.3 % 0-6 Gran % 45.2 % 38-83 Hematocrit 47 % 42-52 Hemoglobin 16.0 g/dL 14.0-18.0 Lymph % 38.0 % 25-47 Mean Corpuscular HGB Cone 34 g/dL 32-36 Mean Corpuscular Hemoglob 31 pg 27-31 Mean Corpuscular Volume 90 um3 80-94 Mean Platelet Volume 8.1 um3 7.4-10.4 Mononuclear % 10.9 % High 1-9 Platelet Count 251 CUMM 150-450 Red Cell Count 5.18 CUMM 4.6-6.2 Redcell Distribution WDTH 13 % 10.5-15 White Blood Count 5.7 CUMM 4.8-10.8 Laboratory test finding 01/23/2011 Bilirubin Direct 0.2 mg/dL 0.1-0.5 Hemoglobin A1c 5.7 % Less Than 6.0 35 PSA 2.99 ng/mL 0-4 36 TSH 2.44 MIU/ML 0.34-5.60 1 R82.99 2 10,000 - 50,000 CFU/mL 3 R97.20 4 THIS ASSAY IS NOT INTENDED A CANCER SCREENING TEST The concentration of PSA in a given specimen, determined with assays from different manufacturers, can vary due to differences in assay methods and reagent specificity. Values obtained from different assay methods cannot be used interchangeably. Method: Siemens Gigamon [place] Chemiluminescent immunoassay. 5 WEAKNESS,NOT BEING HIMSELF 6 URINE, CLEAN CATCH 7 R53.1 8 Irene ECLIA methodology. According to the [place] [employer], Serum PSA should decrease and remain at undetectable levels after radical prostatectomy. The AUA defines biochemical recurrence as an initial PSA value 0.2 ng/mL or greater followed by a subsequent confirmatory PSA value 0.2 ng/mL or greater. Values obtained with different assay methods or kits cannot be used interchangeably. Results cannot be interpreted as absolute evidence of the presence or absence of malignant disease. 9 The table below lists the probability of prostate cancer for men with non-suspicious JAVIER results and total PSA between 4 and 10 ng/mL, by patient age (Phil et al, KAYLA 1998, 279:1542). % Free PSA 50-64 yr 65-75 yr 0.00-10.00% 56% 55% 10.01-15.00% 24% 35% 15.01-20.00% 17% 23% 20.01-25.00% 10% 20% >25.00% 5% 9% Please note: Phil et al did not make specific recommendations regarding the use of percent free PSA for any other population of men. Performed at: RN - [facility] [address] [id number] Network Liaison: Heidi Owens MD, Phone: [phone] 10 Note: Persistent reduction for 3 months or more in an eGFR <60 mL/min/1.73 m2 defines CKD. Patients with eGFR values >/=60 mL/min/1.73 m2 may also have CKD if evidence of persistent proteinuria is present. The original MDRD equation for estimated GFR is not valid for patients less than 18 years of age. Additional information may be found at www.kdoqi.org. 11 DIZZY SPELL 12 Note: Persistent reduction for 3 months or more in an eGFR <60 mL/min/1.73 m2 defines CKD. Patients with eGFR values >/=60 mL/min/1.73 m2 may also have CKD if evidence of persistent proteinuria is present. The original MDRD equation for estimated GFR is not valid for patients less than 18 years of age. Additional information may be found at www.kdoqi.org. 13 0.0 - 0.045 ng/mL: Normal 0.046 - 0.5 ng/mL: Suggestive 0.6 - 1.5 ng/mL: Consistent 14 CULTURE TO FOLLOW 15 12/20/14 LAB.DWM Deleted by [facility] 16 Organism 1 ! MIXED URETHRAL ALEXEI Quantity ! 10,000 - 50,000 CFU/mL SPECIMEN IS A MIX OF GRAM POSITIVE ORGANISMS CONSISTENT WITH SKIN/COMMENSAL CONTAMINATION. SUGGEST REPEAT SPECIMEN IF CLINICALLY INDICATED. 17 Note: Persistent reduction for 3 months or more in an eGFR <60 mL/min/1.73 m2 defines CKD. Patients with eGFR values >/=60 mL/min/1.73 m2 may also have CKD if evidence of persistent proteinuria is present. The original MDRD equation for estimated GFR is not valid for patients less than 18 years of age. Additional information may be found at www.kdoqi.org. 18 QUERY: Reflex add FT3? Y QUERY: Reflex add FT4? Y 19 Adult male reference interval is based on a population of lean males up to 40 years old. Performed at: [facility] [id number] Network Liaison: Heidi Owens MD, Phone: [phone] 20 Adult male reference interval is based on a population of lean males up to 40 years old. Performed at: [facility] [id number] Network Liaison: Heidi Owens MD, Phone: [phone] 21 THIS ASSAY IS NOT INTENDED A CANCER SCREENING TEST The concentration of PSA in a given specimen, determined with assays from different manufacturers, can vary due to differences in assay methods and reagent specificity. Values obtained from different assay methods cannot be used interchangeably. 22 Reference Guidelines*: Desirable: ........... < 200 mg/dL Borderline High: ..... 200-239 mg/dL High: ................ >=240 mg/dL * The National Cholesterol Education Program (NCEP) 23 Reference Guidelines*: Normal: ............. < 150 mg/dL Borderline High: .... 150-199 mg/dL High: ............... 200-499 mg/dL Very High: .......... > 500 mg/dL * Source: National Cholesterol Education Program (NCEP) 24 Reference Guidelines*: Low HDL: ..... < 40 mg/dL Normal: ..... 40-60 mg/dL Desirable: ... > 60 mg/dL *The National Cholesterol Education Program(NCEP) 25 Reference Guidelines*: Optimal:........... <100 mg/dL Near Optimal....... 100-129 mg/dL Borderline High.... 130-159 mg/dL High............... 160-189 mg/dL Very High.......... >=190 mg/dL * Source: National Cholesterol Education Program (NCEP) 26 Note: Persistent reduction for 3 months or more in an eGFR <60 mL/min/1.73 m2 defines CKD. Patients with eGFR values >/=60 mL/min/1.73 m2 may also have CKD if evidence of persistent proteinuria is present. The original MDRD equation for estimated GFR is not valid for patients less than 18 years of age. Additional information may be found at www.kdoqi.org. 27 RUN DATE: 06/28/12 [facility] LIVE PAGE 1 RUN TIME: [id number] [place] [id number] Specimen Inquiry ----- Name: MATT PORTILLO DOB: [address]: Charley GUNTER,Yolanda Tipton Acct: [id number] Unit: [id number] AGE: 67 Location: [facility] Re06/26/12 SEX: M Status: REG REF ----- SPEC: [id number] ANGELA: 06/26/12 [facility] DR: Charley GUNTER,Yolanda Tipton REQ: [id number] RECD: 06/26/12 STATUS: COMP _ SOURCE: URINE SPDESC: ORDERED: Urine Culture QUERIES: Medent Number [id number] ----- Procedure Result Verified Site ----- Urine Culture Final 06/28/12-952 ML Organism 1 NORMAL ALEXEI [place] Count 10-25,000 (Moderate) CFU/ML ----- END OF REPORT * ML=Testing performed at Main Lab DEPARTMENT OF PATHOLOGY, [address] [place] [address] Matt Tse M.D. Director [facility] Permit # [id number] OPERATION/PROCEDURE Colonoscopy DIAGNOSIS: "CECUM \\E&E\\ TRANSVERSE COLON, POLYPECTOMY": TUBULAR ADENOMAS. PAT/edgardo 1151 GROSS "CECAL \\E&E\\ TRANSVERSE POLYP". The specimen is received in an appropriately labeled container. This contains approximately ten rounded claros colored pieces of soft tissue measuring up to 0.3 cm.; filtered and submitted in toto in one block. PAT/edgardo MICROSCOPIC Sections show colonic mucosa with tubular glands lined by columnar cells with elongated and hyperchromatic nuclei. PRE OPERATIVE DIAGNOSIS Screening colon REVIEW CODE CODE: I ----- MICHAEL Posada MD 01/10/12 1305 ----- 29 CHOLESTEROL INTERPRETATION: Desirable: Less than 200 MG/DL Borderline-High Risk: 200-239 MG/DL High-Risk: 240 MG/DL and over 30 HDL INTERPRETATION: Undesirable: High Risk: Less than 40 MG/DL Desirable: Low Risk: Greater than 60 MG/DL 31 LDL INTERPRETATION: Low Risk Optimal Level: LDL Less than 100 MG/DL Near or Above Optimal: LDL 100-129 MG/DL Borderline High Risk: LDL 130-159 MG/DL High Risk : LDL 160-189 MG/DL Very High Risk: LDL Greater than 189 MG/DL 32 Anion gap measurement may be of limited value in the presence of any alkalosis, especially in a combined acid base disorder. . 33 A metabolite of Naproxen, O-desmethylnaproxen, has been shown to interfere with the Jendrassik-Bessie method for measuring total bilirubin. Samples from patients who have taken Naproxen have shown spurious elevation in total bilirubin levels. 34 Because ethnic data is not always readily available, this report includes an eGFR for both -Americans and non- Americans. The National Kidney Disease Education Program (NKDEP) does not endorse the use of the MDRD equation for patients that are not between the ages of 18 and 70, are , have extremes of body size, muscle mass, or nutritional status, or are non- or non-. According to the National Kidney Foundation, irrespective of diagnosis, the stage of the disease is based on the level of kidney function: Stage Description GFR(mL/min/1.73 m(2)) 1 Kidney damage with normal or decreased GFR 90 2 Kidney damage with mild decrease in GFR 60- 89 3 Moderate decrease in GFR 30-59 4 Severe decrease in GFR 15-29 5 Kidney failure <15 (or dialysis) 35 THERAPEUTIC TARGET FOR THE TREATMENT OF DIABETES MELLITUS PATIENTS IS <7% HBA1C, AND IN SELECTIVE PATIENTS <6.0%. PLEASE REFER TO [place] [employer] DIABETIC CARE GUIDELINES FOR FURTHER INFORMATION. 36 * SERUM LEVELS OF PSA MEASURED USING THE SCOTT YIN ACCESS HYBRITECH IMMUNOASSAY SHOULD NOT BE INTERPRETED ABSOLUTE EVIDENCE OF THE PRESENCE OR ABSENCE OF DISEASE. THE PSA VALUE SHOULD BE USED IN CONJUNCTION WITH OTHER PERTINENT CLINICAL DIAGNOSTIC PROCEDURES. Procedures Date CPT Code Description Status Comment 10/10/2016 24549 EKG-Tracing And Report Completed 10/06/[address] Avendano, repeat in 5 yearsDocument: 10/06/16 - Operative Report/Colonoscopy 12/23/2015 24208 Event Monitor Inter/Review Completed Only 12/15/2015 01388 EKG-Tracing And Report Completed 07/01/2012 41933 Echocardiogram Complete Completed 03/21/2011 75279 Anesthesia, Lens Surgery Completed 03/15/2011 42239 EKG Interpretation And Report Completed Only 01/23/2011 93538 Remove Impacted Cerumen Completed 12/11/2008 87456 Remove Impacted Cerumen Completed 12/18/2007 42322 EKG Interpretation And Report Completed Only Encounters Type Date Location Provider CPT E/M Dx Office Visit 12/13/2017 8:30a [place] [address] R63.5 G20 Z23 I95.0 Office Visit 11/06/2017 11:15a Family Medicine Nafisa Hanley, PNP-BC, 08834 M19.232 [employer], Ibclc Office Visit 08/17/2017 9:40a [place] [address] I95.0 I45.2 Office Visit 08/08/2017 11:00a Family Medicine Erinn Ordaz M.D. G0439 Z00.01 Z00.01 G20 G20 Z11.59 Z11.59 Z13.6 Z13.6 Office Visit 06/13/2017 8:30a Family Medicine Erinn Ordaz M.D. 15216 G20 I95.0 Office Visit 04/19/2017 8:30a [place] [address] G20 R82.99 Office Visit 02/12/2017 9:30a [place] [address] I95.0 R94.31 Office Visit 12/13/2016 10:00a Family Erinn Rodrigez M.D. 71804 Z23 G20 I95.0 Z23 Office Visit 10/10/2016 2:40p [place] [address] I95.0 R94.31 Office Visit 07/12/2016 10:45a Family Erinn Rodrigez M.D. 32030 B37.0 Office Visit 07/10/2016 11:10a [place] [address] I95.0 B37.9 Office Visit 06/21/2016 10:00a Family Erinn Rodrigez M.D. 21271 I95.0 G20 R05 Z23 Office Visit 05/26/2016 1:45p Family Medicine Erinn Ordaz M.D. 44482 R05 I10 Office Visit 05/03/2016 10:40a Cardiology Office Sandhya Stein, 45032 I95.0 MSN, [employer] I45.2 Office Visit 03/30/2016 9:30a Family Medicine Nafisa Hanley, PNP-BC, 31481 R53.1 [employer], Ibclc G25.0 Office Visit 03/09/2016 1:30p Family Medicine Nafisa Hanley PNP-BC, 94952 R53.1 [employer] SUPER[employer]OR, Ibclc G25.0 Office Visit 02/01/2016 2:30p [place] [address] R55 Office Visit 12/21/2015 11:15a Family Medicine Erinn Ordaz M.D. 02002 R55 Office Visit 12/15/2015 8:40a [place] [address] R55 I95.0 R94.31 Office Visit 12/06/2015 11:00a Family Medicine Danyelle Light, 49213 W19.xxxA [employer] SUPER[employer]OR-C I95.0 Z23 Office Visit 06/15/2015 11:00a [place] [address] R25.1 Office Visit 02/08/2015 11:15a [place] [address] F84.0 Office Visit 08/06/2014 11:15a Family Medicine Rose Eduardo MD G0439 V70.0 Plan of Care Future Appointment(s):01/17/2018 8:30 am - Rena Cardenas MD at Family [email or web address]/19/2018 10:00 am - Sid Torres MD at Cardiology Yinjbe1312/13/2017 - Rena Cardenas, MDR63.5 Abnormal weight gainComments:ABDOMEN IS SLIGHTY DISTENDED ALTHOUGH COULD NOT DO A NORMAL ABDOM. EXAM BECAUSE HE REFUSED TO LIE DOWN ON THE EXAM TABLE.WILL ORDER AN ABDOMINAL SONOGRAM;DISCUSS ADVANCED DIRECTIVE WITH FAMILY AND GET WRITTEN DOCUMENT ABOUT PLAN.Follow up:1 MOG20 Parkinson's diseaseComments:CONTINUE ON CURRENT MEDS; F/U WITH NEUROLOGIST;I CANNOT TELL IF HE IS WORSE EXCEPT FROM STAFF INPUT,I'VE ONLY SEEN HIM ONCE BEFORE.Z23 Encounter for immunizationComments:FLU SHOT TODAY;ALL OTHER IMMUNIZATIONS ARE UP TO DATEI95.0 Idiopathic hypotensionComments:CONTINUE ON CURRENT MEDICATIONS.
[2017-12-28] MEDS ORDERED: PrednisoLONE 3 MG/ML ORAL.SOLU 15 MG/5 ML ORAL.SOLN PO ONE (19:30)
[2017-12-28] MEDS ORDERED: Albuterol 2.5 MG/3 ML NEB.SOL* (0.083%) INH ONE (19:30)
--- NOTE | 2017-12-28 19:30 | UC ---
UC General HPI - HPI Summary HPI Summary: PER CASINO FLOOR PERSON, PT HAS A COUGH X 2 DAYS. 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 NO FEVER. HX COPD. - History of Current Complaint Chief Complaint: UCRespiratory Stated Complaint: COUGH Time Seen by Provider: 12/28/17 19:20 Hx Obtained From: Family/Outsole Molder Onset/Duration: Gradual Onset Timing: Constant Pain Intensity: 0 Associated Signs & Symptoms: Positive: Cough, SOB - Allergy/Home Medications Allergies/Adverse Reactions: Allergies Allergy/AdvReac Type Severity Reaction Status Date / Time No Known Allergies Allergy Verified 12/28/17 19:09 PMH/Surg Hx/FS Hx/Imm Hx - Additional Past Medical History Additional PMH: AUTISM, MILD COGNITIVE LIMITATIONS, COPD, PARKINSONS, HYPOTENSION, TREMOR - Surgical History Surgical History: Yes Surgery Procedure, Year, and Place: Gallbladder, Bilateral cataract surgery - Family History Known Family History: Positive: Other - positive FMH for cough Negative: Diabetes - Social History Occupation: Disabled Lives: Snf Alcohol Use: None Substance Use Type: None Smoking Status (MU): Never Smoked Tobacco - Immunization History Vaccination Up to Date: Yes Review of Systems Constitutional: Other - NO FEVER Respiratory: Shortness Of Breath, Cough Is Patient Immunocompromised?: No All Other Systems Reviewed And Are Negative: No - Comments Additional Review of Systems Comments: COGNITIVE LIMITATION THUS ROS LIMITED Physical Exam Triage Information Reviewed: Yes Appearance: Well-Appearing Vital Signs: Initial Vital Signs Temp 98.4 F 12/28/17 19:04 Pulse 99 12/28/17 19:04 Resp 17 12/28/17 19:04 BP 106/71 12/28/17 19:04 Pulse Ox 94 12/28/17 19:04 Vital Signs Reviewed: Yes Eyes: Positive: Conjunctiva Clear ENT: Positive: Pharynx normal, TMs normal. Negative: Nasal congestion, Nasal drainage Neck: Positive: Supple, Nontender, No Lymphadenopathy Respiratory: Positive: No respiratory distress, Decreased breath sounds, Other: - CONGESTED COUGH. MILD ASCENCIO WHEN AMBULATED FROM BATHROOM Cardiovascular: Positive: RRR, No Murmur Abdomen Description: Positive: Nontender, No Organomegaly, Soft Bowel Sounds: Positive: Present Musculoskeletal: Positive: ROM Intact, No Edema Neurological: Positive: Alert Psychological: Positive: Age Appropriate Behavior - PER TREATMENT MANAGER Skin Exam: Normal Diagnostics - Radiology No standard instances Radiology Interpretation Completed By: ED Physician - wet read=interstitial changes, rml infiltrate Re-Evaluation - Re-Evaluation First Eval Re-Evaluation Time: 20:26 Change: Improved - post tx, sat=97% on RA. aeration much improved. cough is less congested. Course/Dx - Course Course Of Treatment: non toxic, not hypoxic. cxr wet read=interstitial changes and RML infiltrate. - Differential Dx - Multi-Symptom Provider Diagnoses: pneumonia Discharge - Sign-Out/Discharge Documenting (check all that apply): Patient Departure All imaging exams completed and their final reports reviewed: No - Discharge Plan Condition: Stable Disposition: HOME Prescriptions: DOXYcycline CAP(*) [DOXYcycline 100MG CAP(*)] 100 mg PO BID 10 Days #20 cap predniSONE TAB* [Deltasone 20 MG TAB*] 40 mg PO DAILY 3 Days #6 tab Patient Education Materials: Pneumonia (ED) Referrals: Erinn Ordaz MD [Primary Care Provider] - 3 Days Additional Instructions: GO TO THE ER FOR ANY WORSENING. CONTINUE PRIOR MEDICATIONS AND ACTIVITY. - Billing Disposition and Condition Condition: STABLE Disposition: Home
[2017-12-28 20:25] VITALS: BP 115/72
[2017-12-28] MEDS ORDERED: DOXYcycline CAP(*) 100 MG PO ONE (20:29)
--- NOTE | 2017-12-29 07:14 | RAD ---
INDICATION: Cough, mild labored breathing. COMPARISON: There are no relevant prior studies available for comparison. TECHNIQUE: A single AP view of the chest was obtained.. FINDINGS: The heart is within normal limits in size. Mediastinal and hilar contours appear within normal limits. There are small bibasilar infiltrates. No pleural effusion is seen. IMPRESSION: SMALL BIBASILAR INFILTRATES. R0
--- NOTE | 2017-12-29 09:15 | UC ---
- Progress Note Progress Note: Pt on Doxy Patient Name: STEPH PORTILLO Medical Record#: [id number] Ordering Physician: Doris MICHEL Acct.#: [id number] : 1945 Age: 72 Sex: M [place] [facility] [place] [facility] [place] Date: 12/28/171929 ADM Status: [facility] ER Order Information: CHEST 1 VW Accession Number: [id number] CPT: 24143 INDICATION: Cough, mild labored breathing. COMPARISON: There are no relevant prior studies available for comparison. TECHNIQUE: A single AP view of the chest was obtained.. FINDINGS: The heart is within normal limits in size. Mediastinal and hilar contours appear within normal limits. There are small bibasilar infiltrates. No pleural effusion is seen. IMPRESSION: SMALL BIBASILAR INFILTRATES. R0 <Electronically signed by Vel Siddiqui MD in OV> 12/29/17710 Dictated By: Vel Siddiqui MD Dictated Date/Time: 12/29/17710 Transcribed Date/Time: 12/29/17708 Copy to: CC:Clarice Alcantar MD; Erinn Ordaz MD; Doris MICHEL Imaging - [facility] [address] [address] ph ([phone]) ph ([phone]) ph ([phone]) This report is only to be considered final once signed by the Provider(s) as displayed in the "<Electronically Signed by >" field (s). Absence of a signature indicates the report is in a draft status and still needs to be finalized. In the event this document was created by someone other than the signing Provider, the individual initiating the document will be listed in the "Entered by:" or "Dictated by:" arguello. 1 of 1 Re-Evaluation - Re-Evaluation First Eval Re-Evaluation Time: 20:26 Change: Improved - post tx, sat=97% on RA. aeration much improved. cough is less congested. Discharge - Sign-Out/Discharge Documenting (check all that apply): Post-Discharge Follow Up All imaging exams completed and their final reports reviewed: Yes - Discharge Plan Condition: Stable Disposition: HOME Prescriptions: DOXYcycline CAP(*) [DOXYcycline 100MG CAP(*)] 100 mg PO BID 10 Days #20 cap predniSONE TAB* [Deltasone 20 MG TAB*] 40 mg PO DAILY 3 Days #6 tab Patient Education Materials: Pneumonia (ED) Referrals: Erinn Ordaz MD [Primary Care Provider] - 3 Days Additional Instructions: GO TO THE ER FOR ANY WORSENING. CONTINUE PRIOR MEDICATIONS AND ACTIVITY. - Billing Disposition and Condition Condition: STABLE Disposition: Home
== END 2017-12-28 20:41 | disposition home or self-care (01) ==
LOC: UCCORT 18:04
DX: J18.9 Pneumonia, unspecified organism (principal); J44.9 Chronic obstructive pulmonary disease, unspecified; F84.0 Autistic disorder; G20 Parkinson's disease; I95.9 Hypotension, unspecified; G31.84 Mild cognitive impairment of uncertain or unknown etiology
CPT/HCPCS: 71045; 99213; A9270-GY; G0463; J7510

== ENCOUNTER 2019-04-12 14:13 | Inpatient (IN) | payer MEDICARE, MEDICAID ==
[2019-04-12] MEDS ORDERED: NS 0.9% 1000 ML** 1,000 ML IV ONE (14:22)
--- NOTE | 2019-04-12 14:29 | ED ---
Neurological HPI - HPI Summary HPI Summary: LEVEL 5 CAVEAT DUE TO UNRESPONSIVENESS This patient is a 74 year old M brought to [facility] by EMS with a chief complaint of uti and sepsis. Per nurse, pt has been in and out hospital and was (+ ) uti and has now sick. Pt keeps being sent home. Per nurse, pt cannot swallow and thus cannot take abx (started since he got sick) so he is getting worse. Hx Parkinsons. Medications reviewed. Allergies noted - History of Current Complaint Stated Complaint: UTI , SEPSIS PER EMS Time Seen by Provider: 04/12/19 14:15 Hx Obtained From: Other: - nurse Onset/Duration: Still Present Aggravating: Nothing Alleviating: Nothing - Allergy/Home Medications Allergies/Adverse Reactions: Allergies Allergy/AdvReac Type Severity Reaction Status Date / Time piperacillin [From Zosyn] Allergy Hives Verified 04/12/19 18:39 tazobactam [From Zosyn] Allergy Hives Verified 04/12/19 18:39 Home Medications: Home Medications ALPRAZolam [Xanax] 1 mg PO DAILY PRN 04/12/19 [History Confirmed 04/12/19] Acetaminophen [APAP] 325 mg PO Q6HR PRN 04/12/19 [History Confirmed 04/12/19] Buspirone HCl 10 mg PO TID 04/12/19 [History Confirmed 04/12/19] Esomeprazole Magnesium [Nexium] 20 mg PO BID 04/12/19 [History Confirmed ] Guaifenesin/Dextromethorphan [Tussin Dm Liquid] 10 ml PO Q6HR PRN 04/12/19 [ History Confirmed 04/12/19] Leuprolide Acetate [Lupron Depot (Lupaneta)] 45 mg IM SEE INSTRUCTIONS 04/12/19 [History Confirmed 04/12/19] Midodrine 10 mg PO TID 04/12/19 [History Confirmed 04/12/19] Mirtazapine 30 mg PO DAILY 04/12/19 [History Confirmed 04/12/19] Oseltamivir Phosphate [Tamiflu] 75 mg PO DAILY 04/12/19 [History Confirmed 04/12] cephALEXin [Keflex] 500 mg PO BID 04/12/19 [History Confirmed 04/12/19] PMH/Surg Hx/FS Hx/Imm Hx Previously Healthy: No - LEVEL 5 CAVEAT Respiratory History: Reports: Hx Chronic Obstructive Pulmonary Disease (COPD) Neurological History: Reports: Hx Developmental Delay, Hx Seizures - Cancer History Cancer Type, Location and Year: Prostate - Surgical History Surgery Procedure, Year, and Place: Gallbladder, Bilateral cataract surgery - Family History Known Family History: Positive: Other - positive FMH for cough Negative: Diabetes - Social History Alcohol Use: None Hx Substance Use: No Substance Use Type: Reports: None Hx Tobacco Use: No Smoking Status (MU): Never Smoked Tobacco Review of Systems - ROS Summary Review of Systems Summary: LEVEL 5 CAVEAT DUE TO UNRESPONSIVENESS Positive: Other - cannot swallow All Other Systems Reviewed And Are Negative: No Physical Exam - Summary Physical Exam Summary: LEVEL 5 CAVEAT DUE TO UNRESPONSIVNESS Constitutional: Well-developed, Well-nourished, Alert. (-) Distressed Skin: Warm, Dry HENT: Normocephalic; Atraumatic Eyes: Conjunctiva normal Neck: Musculoskeletal ROM normal neck. (-) JVD, (-) Stridor, (-) Tracheal deviation Cardio: Rhythm regular, rate normal, Heart sounds normal; Intact distal pulses; Radial pulses are 2+ and symmetric. (-) Murmur Pulmonary/Chest wall: Junky cough present, rales at the right base, Albrecht catheter in place with lots of sediment in catheter Abd: Soft, (-) tenderness, (-) Distension, (-) Guarding, (-) Rebound Musculoskeletal: (-) Edema Lymph: (-) Cervical adenopathy Neuro: Alert, Oriented x3 Psych: Mood and affect Normal Triage Information Reviewed: Yes Vital Signs Reviewed: Yes Procedures - Sedation Patient Received Moderate/Deep Sedation with Procedure: No Diagnostics - Laboratory Result Diagrams: 04/15/19 07:20 04/14/19 07:06 Lab Statement: Any lab studies that have been ordered have been reviewed, and results considered in the medical decision making process. - Radiology Chest X-Ray Radiology Interpretation Completed By: Radiologist Summary of Radiographic Findings: Per radiologist,. NO EVIDENCE FOR ACTIVE CARDIOPULMONARY DISEASE. ED physician has reviewed this imaging report. - CT Chest/Thorax CTA CT Interpretation Completed By: Radiologist Summary of CT Findings: Per radiologist,. No evidence of PE. Mild right basilar infiltrate which may represent a developing pneumonia. ED physician has reviewed this imaging report. - EKG 1429 Cardiac Rate: NL - 107 BPM Summary of EKG Findings: EKG taken at 1429 reveals sinus tachycardia at 107 BPM with right bundle branch block. Re-Evaluation - Re-Evaluation First Eval Re-Evaluation Time: 16:55 Comment: caregiver is in room, discharged from [place] on , iv abx for uti , typically is more conversant and more interactive and never needed oxygen before Second Eval Re-Evaluation Time: 18:43 Comment: discusses admission with pt and family Course/Dx - Course Course Of Treatment: Patient is here with worsening mental status cough. Patient has autism and is typically able to say 1 word sentences but is having difficulty with that here. Patient had a chest x-ray which didn't show any obvious pneumonia. Patient performed which showed a leukocytosis of 14. However, given patient's unexplained hypoxemia, a CTA was performed which showed a right middle lobe pneumonia. Patient was given cefepime as he was recently hospitalized. Patient is admitted to the hospital - Diagnoses Provider Diagnoses: Pneumonia, Hypoxia - Physician Notifications Discussed Care Of Patient With: Joe Mccollum - hospitalist Time Discussed With Above Provider: 18:40 Instructed by Provider To: Admit As Inpatient Discharge ED - Sign-Out/Discharge Documenting (check all that apply): Patient Departure - admit All imaging exams completed and their final reports reviewed: Yes - Discharge Plan Condition: Stable Disposition: ADMITTED TO [facility] - Billing Disposition and Condition Condition: STABLE Disposition: Admitted to [facility] - Attestation Statements Document Initiated by Chris: Yes Documenting Scribe: Alyssa Guerrero Provider For Whom Chris is Documenting (Include Credential): Dr. Efra Rooney MD Scribe Attestation: Alyssa Alvarado scribed for Dr. Efra Rooney MD on 04/15/19 at 0744. Scribe Documentation Reviewed: Yes Provider Attestation: The documentation as recorded by the Alyssa nascimetno accurately reflects the service I personally performed and the decisions made by me, Dr. Efra Rooney MD Status of Scribe Document: Viewed
--- OUTSIDE RECORDS SUMMARY | 2019-04-12 14:31 | XMS REPORT | Continuity of Care Document ---
:1945 External Reference #:[id number] Author Name Marty Newell NP (transmitted by agent of provider Bruno Hameed) Address [address], [place] [address] Care Team Providers Name Role Phone Rena Cardenas MD - Family Medicine Care Team Information International Trade Specialist [phone] Problems Description No Information Available Social History Type Date Description Comments Sex Unknown ETOH Use Denies alcohol use Tobacco Use Start: Unknown Patient has never smoked Smoking Status Reviewed: 04/10/19 Patient has never smoked Allergies, Adverse Reactions, Alerts Description No Known Drug Allergies Medications Active Medications SIG Qnty Indications Ordering Date Provider Tamsulosin HCL 1 by mouth every Unknown 0.4mg day Capsules Amantadine HCL take 5 ml by mouth Unknown 50mg/5ML once a day Syrup Nexium 24HR 1 by mouth twice a Unknown 20mg Capsules day DR Alprazolam one by mouth up to 30tabs Unknown 0.25mg Tablets three times daily and as needed for procedures Bacitracin (External) use three times a Unknown day on wounds and 500Unit/GM Ointment cuts=as needed Tussin DM take 10 mL every 4 Unknown 100-10mg/5ML hrs for cough Liquid Acetaminophen 2 every 4 hours as Unknown 325mg needed for pain Tablets Midodrine HCL take one by mouth Unknown 10mg three times daily Tablets Pseudoephedrine HCL take two tablets Unknown 30mg every 4 hours prn Tablets Kaopectate Extra 2 tbsp prn Unknown Strength 525mg/15ML Suspension Mylanta 10 milliliters Unknown [phone]/5ML every 4 hrs as Suspension needed Hydrocortisone Acetate apply qid prn for Unknown 1% minor skin Cream rashes/itching Carbidopa-Levodopa 1.5 tabs by mouth 240tabs Edi Tadeo at 7 am, 10 am , 1 Carmel Ervin 25-100mg Tablets pm, 4 pm and 7 pm Cerovite Senior 1 by mouth every Unknown Tablets day Mirtazapine take one tablet by Unknown 30mg Tablets mouth at bedtime Buspirone HCL Unknown 10mg Tablets Immunizations Description No Information Available Vital Signs Date Vital Result Comment 04/10/2019 11:55am Height 71 inches 5'11" Weight 160.00 lb Heart Rate 76 /min BP Systolic Sitting 134 mmHg BP Diastolic Sitting 80 mmHg BMI (Body Mass Index) 22.3 kg/m2 02/06/2019 3:31pm Height 71 inches 5'11" Weight 158.00 lb in january Heart Rate 65 /min BP Systolic Sitting 106 mmHg BP Diastolic Sitting 76 mmHg Respiratory Rate 20 /min Pain Level 0 BMI (Body Mass Index) 22.0 kg/m2 Results Description No Information Available Procedures Description No Information Available Medical Devices Description No Information Available Encounters Type Date Location Provider Dx Diagnosis Office Visit 02/06/2019 [place] Newell NP G20 Parkinson's 3:00p Neurologic Serv Of disease [facility] Z79.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 disease Z79.899 Other snf (current) drug therapy F84.0 Autistic disorder I95.1 Orthostatic hypotension C61 Malignant neoplasm of prostate Assessments Date Code Description Provider 04/10/2019 G20 Parkinson's disease Marty Newell NP 04/10/2019 Z79.899 Other snf (current) drug therapy Marty Newell NP 02/06/2019 G20 Parkinson's disease Marty Newell NP 02/06/2019 Z79.899 Other snf (current) drug therapy Marty Newell NP 02/06/2019 I95.1 Orthostatic hypotension Marty Newell NP 11/18/2018 G20 Parkinson's disease Edi Ervin M.D. 11/18/2018 Z79.899 Other snf (current) drug therapy Edi Ervin M.D. 11/18/2018 F84.0 Autistic disorder Edi Ervin M.D. 11/18/2018 I95.1 Orthostatic hypotension Edi Ervin M.D. 11/18/2018 C61 Malignant neoplasm of prostate Edi Ervin M.D. Plan of Treatment Future Appointment(s):10/09/2019 11:00 am - Marty Newell NP at [facility]04/10/2019 - Marty Newell NPG20 Parkinson's diseaseFollow up:SIX [id number] Other snf (current) drug therapy Functional Status Description No Information Available Mental Status Description No Information Available Referrals Description No Information Available
--- OUTSIDE RECORDS SUMMARY | 2019-04-12 14:32 | XMS REPORT | Continuity of Care Document ---
:1945 External Reference #:[id number] Author Name Mayte Anderson M.D. 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 Onset: 06/21/2016 Parkinson's disease Erinn Ordaz M.D. Onset: 06/21/2016 Abnormal weight gain Rena Cardenas MD Onset: 12/13/2017 Immunization Rena Cardenas MD Onset: 12/13/2017 History of malignant neoplasm of prostate Rena Cardenas MD Onset: 2017 Coliform urinary tract infection Mayte Anderson M.D. Onset: 01/08/2019 Infection and inflammation associated with Mayte Anderson M.D. Onset: 2018 indwelling urinary catheter Urinary tract infectious disease Lj Solis M.D. Onset: 11/07/2018 Retention of urine Rena Cardenas MD Onset: 09/16/2018 Malignant tumor of prostate Rena Cardenas MD Onset: 09/16/2018 Dementia Rena Cardenas MD Onset: 09/16/2018 Diverticulum of bladder Rena Cardenas MD Onset: 04/15/2018 Social History Type Date Description Comments Sex Unknown Tobacco Use Start: Unknown Never Smoked Cigarettes Smoking Status Reviewed: 02/12/19 Never Smoked Cigarettes ETOH Use Never used alcohol Tobacco Use Start: Unknown Patient has never smoked Allergies, Adverse Reactions, Alerts Description No Known Drug Allergies Medications Active Medications SIG Qnty Indications Ordering Date Provider Fully Electric Super bed deck travel Ronald, 01/27/2019 Low Hosp. Bed 36"X 80" range 7" to 30" MD Rena footboard attend. control and hand pendant control mobility on demand foot brakes foam , pressure reduction Catheter Insertion as needed monthly 6units Irma, 01/22/2019 Tray and is needed with Carmel Cal[place]oun Kit decreased function. Please include a 16 Wolof catheter Catheter Flush Flush delvalle once a Irma, 01/10/2019 week and prn with Carmel Cal[place]oun 120cc sterile water Sterile Water For 1 liter bottles 3units Irma, 01/02/2019 Irrigation irrigate 3 times Carmel Cal[place]oun Solution per week and as needed Keflex 1 by mouth once 1caps Irma, 11/25/2018 500mg Capsules given in office Carmel [facility]oun before procedure Hydrocortisone apply sparingly to 28.350gm Ronald, 11/05/2018 1% Cream minor skin rash 2 MD Rena times a day as needed mdd: 2 Esomeprazole Magnesium Take 1 Capsule 60caps K21.9 Nafisa Hanley, 2018 Sprinkled In PNP-BC, PRINTING ESTIMATOR, 20mg Capsules DR Liquids By Mouth 2 Ibclc Times A Day -DO Not Crush Or Chew- Mirtazapine take one tablet by F50.89 Ronald, 09/30/2018 30mg Tablets mouth every night MD Rena for insomnia [place] Urine Drainage change bag as 4units Irma, 08/26/2018 Bag/2000ML needed or once [facility] Amantadine HCL Take 5ML (50MG) 150units G20 Nafisa Hanley, 06/18/2018 50mg/5ML By Mouth Daily + + PNP-BC, PRINTING ESTIMATOR, Syrup Lot: Exp: Ibclc Alprazolam 1 tab 1 hour prior 30tabs Ronald, 12/24/2017 1mg Tablets to procedure and MD Rena once a day if needed for increasing anxiety Bacitracin (External) apply to minor 28.400gm Ronald, 12/13/2017 cuts and wounds MD Rena 500Unit/GM Ointment 3x/day as needed Tussin DM take 10 240ml Ronald, 12/13/2017 100-10mg/5ML milliliters every MD Rena Liquid 6 hours as needed for cough Acetaminophen 2 tabs by mouth 120tabs Ronald, 12/13/2017 325mg every 4 hours as MD Rena Tablets needed for pain, headache, temp >101 Jonah Elastic Ok to D/C use of Nafisa Hanley, 10/25/2017 Bandage/Clips jonah bandage PNP-BC, PRINTING ESTIMATOR, BNDG 3" Ibclc Misc Pseudoephedrine HCL take 2 tablets by 100tabs Ronald, 12/12/2016 30mg mouth every 4 MD Rena Tablets hours as needed for nasal congestion /runny nose *max daily dose: 8 tablets Cerovite Senior take 1 tablet by 90tabs Ronald, 09/12/2016 Tablets mouth daily MD Rena Kaopectate Extra 2 tbsp Q Loose Unknown Strength Stool prn 525mg/15ML Suspension Mylanta 1 tbsp Q4H prn Unknown [phone]/5ML Upset Stomach Suspension Midodrine HCL take one tablet by 270tabs Sid Torres, 10mg mouth three times MD Tablets a day Lupron Depot (6-Month) 1 injection every Unknown 6 months for 2 45mg Kit years Carbidopa-Levodopa 1 &1/2 tab by Unknown mouth five times a 25-100mg Tablets day History Medications Bactrim DS 800-160 take last pill Rena Cardenas, 11/18/2018 - today 11/25/2018 Wheel Chair Dx: [id number] Hernandez López MD 11/12/2018 - 01/27/2019 Mirtazapine Take 1 Tablet By 30tabs F50.89 Rena Cardenas, 09/04/2018 - 15mg Mouth AT Bedtime 09/30/2018 Tablets Immunizations CPT Code Status Date Vaccine Lot # [id number] Given 12/13/2017 Influenza High Dose [id number] 77214 Given 12/13/2016 Influenza High Dose [id number] 72774 Given 06/21/2016 Tdap injection [id number] 87975 Given 06/21/2016 Pneumococcal Conjugate Vaccine 13 Valent For [id number] Intramuscular Use Q2038 Given 12/06/2015 Influenza Vaccine (Fluzone) Age 3 And Older [id number] Q2038 Given 01/08/2015 Influenza Vaccine (Fluzone) Age 3 And Older 05248 Given 02/05/2014 flu vaccination 04332 Given 01/01/2012 Pneumovax Injection 67729 Given 01/01/2012 flu vaccination 88564 Given 11/28/2010 flu vaccination 77441 Given 12/28/2009 flu vaccination 34395 Given 02/16/2009 flu vaccination 21439 Given 02/16/2009 H1N1 Immuniation Adminstration 64811 Given 12/11/2008 Hepatitis B Ofelia Adoles For Intramuscular Use 80350 Given 07/31/2008 Hepatitis B Ofelia Adoles For Intramuscular Use 44474 Given 06/11/2008 Hepatitis B Ofelia Adoles For Intramuscular Use Vital Signs Date Vital Result Comment 02/12/2019 1:36pm BP Systolic Sitting Left Arm 103 mmHg BP Diastolic Sitting Left Arm 67 mmHg Body Temperature 96.1 F Heart Rate 85 /min 01/27/2019 8:20am BP Systolic Sitting Left Arm 118 mmHg BP Diastolic Sitting Left Arm 70 mmHg Body Temperature 98.1 F Heart Rate 78 /min Respiratory Rate 18 /min Height 71 inches 5'11" Weight 158.00 lb AT Home 3 Weeks Ago BMI (Body Mass Index) 22.0 kg/m2 BSA (Body Surface Area) 1.91 m2 [place] body weight in kilograms 78 kg Results Test Acquired Date Facility Test Result H/L Range Note Urine 01/22/2019 [facility] Urine ESCHERICHIA Abnormal [address] [place] [place] [address] [phone] Quantity > 100,000 CFU/mL 2 Urine Culture MIXED URETHRAL F <SEE NOTE> 3 Quantity > 100,000 CFU/mL 4 Ua RFX Micro & Culture 01/22/2019 [facility] Urine Color Yellow Yellow II [address] [place], [place] [address] [phone] Urine Clarity Slightly Cloudy Clear Urine Glucose - Dipstick NEGATIVE mg/dL Negative Urine Bilirubin - Dipstick NEGATIVE Negative Urine Ketone NEGATIVE mg/dL Negative Urine Specific [place] 1.018 Normal 1.010-1.030 Urine Blood SMALL Abnormal Negative Urine PH 6.5 Normal 6.5-7.5 Urine Protein - Dipstick TRACE mg/dL Negative Urine Urobilinogen - Dipstick < 2.0 mg/dL < 2.0 Urine Nitrite - Dipstick NEGATIVE Negative Urine Leuk Esterase LARGE Abnormal Negative Urine RBC 21-30 rbc/hpf Abnormal 0-2 Urine WBC >50 wbc/hpf 0-5 Urine Calcium Oxalate Crystals FEW None Seen Urine Bacteria FEW None Seen Urine Mucus SMALL None Seen Source: URINE, STRAIGHT <SEE NOTE> 5 Culture If 01/22/2019 [facility] Culture If CULTURE TO 6 Indicated Comment [address] Indicated Comment FOLLO <[place] [address] NOTE> [phone] Source: URINE, STRAIGHT <SEE NOTE> 7 Escherichia Coli 01/22/2019 [facility] Nitrofurantoin <=[address] [place] [address] [phone] Trimethoprim/Sulfamethoxazole >=320 Resistant Ampicillin >=32 Resistant Cefazolin <=4 Susceptible Ampicillin/Sulbactam 16 Intermediate Ciprofloxacin >=4 Resistant Piperacillin/Tazobactam <=4 Susceptible Ceftazidime <=1 Susceptible Ceftriaxone <=1 Susceptible Cefepime <=1 Susceptible Levofloxacin >=8 Resistant Imipenem <=0.25 Susceptible Gentamicin <=1 Susceptible Tobramycin <=1 Susceptible Laboratory test 01/22/2019 [facility] Prostate 1.23 ng/mL < 4.0 8, [address] [place] [address] Antigen [phone] Testosterone,Serum 21 ng/dL Low 264-916 10 Calcium 9.3 mg/dL Normal 8.5-10.1 Blood Culture 12/26/2018 [facility] Blood Culture NO GROWTH: 11, [address] Aerobic FINAL <[place] [address] NOTE> [phone] Blood Culture Anaerobic NO GROWTH: FINAL <SEE NOTE> 13 CBC W/Automated 12/26/2018 [facility] White Blood 9.7 K/uL Normal 3.4-10.[address] [place] [address] [phone] Red Blood Count 4.94 M/uL Normal 4.20-5.80 Hemoglobin 15.0 gm/dL Normal 12.8-17.0 Hematocrit 44.7 % Normal 38.0-48.0 Mean Cell Volume 90.5 fl Normal 80.0-96.0 Mean Corpuscular HGB 30.4 pg Normal 27.0-33.0 Mean Corpuscular HGB Conc 33.6 g/dL Normal 31.7-36.0 Platelet Count 345 K/uL Normal 155-360 Red Cell Distri Width SD 42.5 fl Normal 36-51 Red Cell Distri Width %CV 13.0 % Normal 11.6-15.8 Mean Platelet Volume 9.5 fl Normal 6.6-10.6 Neut% 63.8 % Normal 33.0-73.0 Lymph % 21.2 % Normal 20.0-42.0 [place] % 7.3 % Normal 0.0-10.0 Eo% 6.7 % High 0.0-6.6 Bas% 0.7 % Normal 0.0-1.1 Immature Grans 0.3 % Normal 0.0-5.0 NRBC % 0.0 /100WBC < 10/ 100 WBC Neut# 6.18 K/uL Normal 1.8-7.0 Lymph # 2.05 K/uL Normal 1.0-4.0 [place] # 0.71 K/uL Normal 0.0-0.8 Eos # 0.65 K/uL High 0.0-0.5 Baso # 0.07 K/uL Normal 0.0-0.1 Immature Grans Absolute 0.03 K/uL NRBC # 0.00 K/uL Rust 12/26/2018 [facility] Glucose 92 mg/dL Normal 74-106 Metabolic Panel [address] [place] [address] [phone] BUN 15 mg/dL Normal 7-18 Creatinine 0.9 mg/dL Normal 0.6-1.3 Glom Filtration Rate, Estimate >60 mL/min >60 If >60 mL/min >60 14 BUN/Creat 16.6 ratio Sodium 139 mmol/L Normal 136-145 Potassium 4.1 mmol/L Normal 3.5-5.1 Chloride 103 mmol/L Normal 98-107 Carbon Dioxide 30 mmol/L Normal 21-32 Anion Gap 6 mEq/L Low 8-16 Calcium 9.5 mg/dL Normal 8.5-10.1 Total Protein 8.0 g/dL Normal 6.4-8.2 Albumin 4.1 g/dL Normal 3.4-5.0 Globulin 3.9 g/dL Normal 1.9-4.3 Alb/Glob 1.1 ratio Bilirubin,Total 0.9 mg/dL Normal 0.2-1.0 Sgot/Ast 18 U/L Normal 15-37 SGPT/Alt 23 U/L Normal 12-78 Alkaline Phosphatase 130 U/L High 45-117 Laboratory 12/26/2018 [facility] C-Reactive 4.14 <3.0 test finding [address] [facility] Protein,Cardiac mg/[place] [address] [phone] Ast-GN67 12/25/2018 [facility] Nitrofurantoin <=16 Susceptible [address], [place] [address] [phone] Trimethoprim/Sulfamethoxazole >=320 Resistant Ampicillin >=32 Resistant Cefazolin <=4 Susceptible Ampicillin/Sulbactam 16 Intermediate Ciprofloxacin >=4 Resistant Piperacillin/Tazobactam <=4 Susceptible Ceftazidime <=1 Susceptible Ceftriaxone <=1 Susceptible Cefepime <=1 Susceptible Levofloxacin >=8 Resistant Imipenem <=0.25 Susceptible Gentamicin <=1 Susceptible Tobramycin <=1 Susceptible Culture If 12/25/2018 [facility] Culture If CULTURE TO 15 Indicated Comment [address] [facility] Indicated Comment FOLLO <[place] [address] NOTE> [phone] Source: URINE, CLEAN CAT <SEE NOTE> 16 Ua RFX Micro & 12/25/2018 [facility] Urine Color Light-Yellow Yellow Culture II [address] [place] [address] [phone] Urine Clarity Clear Clear Urine Glucose - Dipstick NEGATIVE mg/dL Negative Urine Bilirubin - Dipstick NEGATIVE Negative Urine Ketone NEGATIVE mg/dL Negative Urine Specific [place] 1.005 Low 1.010-1.030 Urine Blood SMALL Abnormal 0-2 Urine PH 6.0 Low 6.5-7.5 Urine Protein - Dipstick NEGATIVE mg/dL Negative Urine Urobilinogen - Dipstick < 2.0 mg/dL < 2.0 Urine Nitrite - Dipstick NEGATIVE Negative Urine Leuk Esterase LARGE Abnormal Negative Urine RBC 3-5 rbc/hpf 0-2 Urine WBC >50 wbc/hpf 0-5 Urine Bacteria FEW None Seen Urine Mucus SMALL None Seen Source: URINE, CLEAN CAT <SEE NOTE> 17 Urine Culture 12/25/2018 [facility] Urine ESCHERICHIA COLI Abnormal [address] [place] [place] [address] [phone] Quantity > 100,000 CFU/mL 19 Urine Culture 09/30/2018 [facility] Urine ESCHERICHIA COLI Abnormal [address] [place] [address] [phone] Quantity > 100,000 CFU/mL 21 Ast-GN67 09/30/2018 [facility] Nitrofurantoin <=[address] [place] [address] [phone] Trimethoprim/Sulfamethoxazole >=320 Resistant Ampicillin >=32 Resistant Cefazolin <=4 Susceptible Ampicillin/Sulbactam 16 Intermediate Ciprofloxacin >=4 Resistant Piperacillin/Tazobactam <=4 Susceptible Ceftazidime <=1 Susceptible Ceftriaxone <=1 Susceptible Cefepime <=1 Susceptible Levofloxacin >=8 Resistant Imipenem <=0.25 Susceptible Gentamicin <=1 Susceptible Tobramycin <=1 Susceptible 1 ESCHERICHIA COLI 2 > 100,000 CFU/mL 3 MIXED URETHRAL ALEXEI 4 > 100,000 CFU/mL 5 URINE, STRAIGHT CATHETHER 6 CULTURE TO FOLLOW 7 URINE, STRAIGHT CATHETHER 8 C61 C61 T41.270J 9 THIS ASSAY IS NOT INTENDED A CANCER SCREENING TEST The concentration of PSA in a given specimen, determined with assays from different manufacturers, can vary due to differences in assay methods and reagent specificity. Values obtained from different assay methods cannot be used interchangeably. Method: Siemens Dimension [place] Chemiluminescent immunoassay. 10 Adult male reference interval is based on a population of healthy nonobese males (BMI <30) between 19 and 39 years old. Dara et.al. JCEM 2017,102;2460-8483. PMID: [id number]. Performed at: RN - [facility] [address] [id number] Geophysical Observer: Heidi Owens MD, Phone: [phone] 11 E33.991V 12 NO GROWTH: FINAL REPORT 13 NO GROWTH: FINAL REPORT 14 Note: Persistent reduction for 3 months or more in an eGFR <60 mL/min/1.73 m2 defines CKD. Patients with eGFR values >/=60 mL/min/1.73 m2 may also have CKD if evidence of persistent proteinuria is present. The original MDRD equation for estimated GFR is not valid for patients less than 18 years of age. Additional information may be found at www.kdoqi.org. 15 CULTURE TO FOLLOW 16 URINE, CLEAN CATCH 17 URINE, CLEAN CATCH 18 ESCHERICHIA COLI 19 > 100,000 CFU/mL 20 ESCHERICHIA COLI 21 > 100,000 CFU/mL Procedures Date Code Description Status 01/22/2019 87078 Insert Of Temporary Indwelling Bladder Catheter,Simple Completed 12/30/2018 57935 Trim Nondystrophic Nails Completed 12/25/2018 16796 Insert Of Temporary Indwelling Bladder Catheter,Simple Completed 11/25/2018 36523 Cystourethroscopy W/ Biopsy Completed 10/21/2018 25076 Insert Of Temporary Indwelling Bladder Catheter,Simple Completed 09/30/2018 00887 Insert Of Temporary Indwelling Bladder Catheter,Simple Completed 09/21/2018 03621 EKG Interpretation And Report Only Completed 09/11/2018 34055 Insert Of Temporary Indwelling Bladder Catheter,Simple Completed 08/14/2018 85853 Insert Of Temporary Indwelling Bladder Catheter,Simple Completed 10/06/2016 [id number] Colonoscopy Completed Medical Devices Description No Information Available Encounters Type Date Location Provider Dx Diagnosis Office Visit 02/12/2019 Physical Medicine Mayte Anderson, B96.20 Unsp Escherichia 1:15p & Infectious M.D. coli as the cause Disease of diseases classd elsr T83.511D I/I react d/t indwelling urethral catheter, subs R33.8 Other retention of urine N32.3 Diverticulum of bladder G20 Parkinson's disease F02.80 Dementia in oth diseases classd elswhr w/o behavrl disturb Office Visit 01/27/2019 8:30a Family Medicine Rena Cardenas, G20 Parkinson's [place] disease F02.80 Dementia in oth diseases classd elswhr w/o behavrl disturb C61 Malignant neoplasm of prostate R33.9 Retention of urine, unspecified Office Visit 01/22/2019 8:45a Urology Noe Hawk, C61 Malignant neoplasm of PA prostate R33.9 Retention of urine, unspecified N39.0 Urinary tract infection, site not specified Office Visit 01/08/2019 2:45p Physical Medicine Mayte Anderson, T83.511D I/ I react d/t & Infectious M.D. 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/o behavrl disturb R33.8 Other retention of urine N32.3 Diverticulum of bladder Office Visit 12/30/2018 2:45p Podiatry Office Luis, I70.203 Unsp athscl [place] Edi, DPM arteries of extremities, bilateral legs M20.5x1 Other deformities of toe(s) (acquired), right foot Office Visit 12/23/2018 2:45p Physical Medicine Mayte Anderson, T83.518A I/ I react d/t & Infectious M.D. other urinary Disease catheter, initial encounter G20 Parkinson's disease C61 Malignant neoplasm of prostate F02.80 Dementia in oth diseases classd elsr w/o behavrl disturb R33.8 Other retention of urine Office Visit 12/03/2018 1:00p Urology Noe Hawk R33.9 Retention of R., PA urine, unspecified Office Visit 11/12/2018 8:30a Family Medicine Hernandez López MD N39.[address] infection, site not specified M20.40 Other hammer toe(s) (acquired), unspecified foot G20 Parkinson's disease Office Visit 11/07/2018 2:00p Urology Lj Solis N39.0 Urinary tract M.D. infection, site not specified Office Visit 10/21/2018 3:45p Urology Noe Hawk, R33.9 Retention of urine, PA unspecified Office Visit 09/30/2018 12:00p Urology Noe Hawk, C61 Malignant neoplasm of PA prostate R33.9 Retention of urine, unspecified Office Visit 09/16/2018 8:30a Family Medicine Rena Cardenas, G20 Parkinson's Stephen HUNTER MD disease F02.80 Dementia in oth diseases classd elswhr w/o behavrl disturb F84.0 Autistic disorder C61 Malignant neoplasm of prostate R33.9 Retention of urine, unspecified Office Visit 09/11/2018 3:30p Urology Noe Hawk R33.9 Retention of R., MARILU urine, unspecified Office Visit 09/02/2018 11:00a Family Medicine Joaquin, N39.[address] Ethan, infection, site PRINTING ESTIMATOR not specified R33.9 Retention of urine, unspecified Office Visit 08/14/2018 3:15p Urology Noe Hawk, R33.9 Retention of urine, PA unspecified Assessments Date Code Description Provider 02/12/2019 B96.20 Unspecified Escherichia coli [EMayte Santana M.D. coli] as the cause of diseases classified elsewhere 02/12/2019 T83.511D Infection and inflammatory reaction Mayte Anderson M.D. due to indwelling urethral catheter, subsequent encounter 02/12/2019 R33.8 Other retention of urine Mayte Anderson M.D. 02/12/2019 N32.3 Diverticulum of bladder Mayte Anderson M.D. 02/12/2019 G20 Parkinson's disease Mayte Anderson M.D. 02/12/2019 F02.80 Dementia in other diseases classified Mayte Anderson M.D. elsewhere without beha 01/27/2019 G20 Parkinson's disease Rena Cardenas MD 01/27/2019 F02.80 Dementia in other diseases classified Rena Cardenas MD elsewhere without beha 01/27/2019 C61 Malignant neoplasm of prostate Rena Cardenas MD 01/27/2019 R33.9 Retention of urine, unspecified Rena Cardenas MD 01/22/2019 C61 Malignant neoplasm of prostate Noe Hawk PA 01/22/2019 R33.9 Retention of urine, unspecified Noe Hawk PA 01/22/2019 N39.0 Urinary tract infection, site not Noe Hawk PA specified 01/08/2019 T83.511D Infection and inflammatory reaction Mayte Anderson M.D. due to indwelling urethral catheter, subsequent encounter 01/08/2019 B96.20 Unspecified Escherichia coli [EMayte Santana M.D. coli] as the cause of diseases classified elsewhere 01/08/2019 G20 Parkinson's disease Mayte Anderson M.D. 01/08/2019 C61 Malignant neoplasm of prostate Mayte Anderson M.D. 01/08/2019 F02.80 Dementia in other diseases classified Mayte Anderson M.D. elsewhere without beha 01/08/2019 R33.8 Other retention of urine Mayte Anderson M.D. 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 12/30/2018 I70.203 Unspecified atherosclerosis of [place] Edi Smith DPM arteries of extremities, bilateral legs 12/30/2018 M20.5x1 Other deformities of toe(s) Edi Smith DPM (acquired), right foot 12/25/2018 R33.9 Retention of urine, unspecified Noe Hawk PA 12/25/2018 N39.0 Urinary tract infection, site not Noe Hawk PA specified 12/23/2018 T83.518A Infection and inflammatory reaction Mayte Anderson M.D. due to other urinary catheter, initial encounter 12/23/2018 G20 Parkinson's disease Mayte Anderson M.D. 12/23/2018 C61 Malignant neoplasm of prostate Mayte Anderson M.D. 12/23/2018 F02.80 Dementia in other diseases classified Mayte Anderson M.D. elsewhere without beha 12/23/2018 R33.8 Other retention of urine Mayte Anderson M.D. 12/03/2018 R33.9 Retention of urine, unspecified Noe Hawk PA 11/25/2018 N39.0 Urinary tract infection, site not Lj Solis M.D. specified 11/12/2018 N39.0 Urinary tract infection, site not Hernandez López MD specified 11/12/2018 M20.40 Other hammer toe(s) (acquired), Hernandez López MD unspecified foot 11/12/2018 G20 Parkinson's disease Hernandez López MD 11/07/2018 N39.0 Urinary tract infection, site not Lj Solis M.D. specified 10/21/2018 R33.9 Retention of urine, unspecified Noe Hawk PA 09/30/2018 C61 Malignant neoplasm of prostate Noe Hawk PA 09/30/2018 R33.9 Retention of urine, unspecified Noe Hawk, PA 09/23/2018 N39.0 Urinary tract infection, site not Roder, Isidra, SUSTAINABILITY OFFICER specified 09/23/2018 R10.30 Lower abdominal pain, unspecified Roder, Isidra, SUSTAINABILITY OFFICER 09/23/2018 F79 Unspecified intellectual disabilities Roder, Isidra, SUSTAINABILITY OFFICER 09/23/2018 R33.9 Retention of urine, unspecified Roder, Isidra, SUSTAINABILITY OFFICER 09/22/2018 N39.0 Urinary tract infection, site not Roder, Isidra, SUSTAINABILITY OFFICER specified 09/22/2018 R10.30 Lower abdominal pain, unspecified Roder, Isidra, SUSTAINABILITY OFFICER 09/22/2018 F79 Unspecified intellectual disabilities Roder, Isidra, SUSTAINABILITY OFFICER 09/22/2018 R33.9 Retention of urine, unspecified Roder, Isidra, SUSTAINABILITY OFFICER 09/21/2018 R94.31 Abnormal electrocardiogram [ECG] Alvaro Pereyra M.D. , [EKG] [facility] 09/21/2018 N39.0 Urinary tract infection, site not Roder, Isidra, SUSTAINABILITY OFFICER specified 09/21/2018 I45.10 Unspecified right bundle-branch block Alvaro Pereyra M.D., [facility] 09/21/2018 R10.30 Lower abdominal pain, unspecified Roder, Isidra, SUSTAINABILITY OFFICER 09/21/2018 F79 Unspecified intellectual disabilities Roder, Isidra, SUSTAINABILITY OFFICER 09/21/2018 R33.9 Retention of urine, unspecified Roder, Isidra, SUSTAINABILITY OFFICER 09/20/2018 N39.0 Urinary tract infection, site not Edison Kasper MD specified 09/20/2018 R10.30 Lower abdominal pain, unspecified Edison Kasper MD 09/20/2018 G20 Parkinson's disease Edison Kasper MD 09/20/2018 F79 Unspecified intellectual disabilities Edison Kasper MD 09/16/2018 G20 Parkinson's disease Rena Cardenas MD 09/16/2018 F02.80 Dementia in other diseases classified Rena Cardenas MD elsewhere without beha 09/16/2018 F84.0 Autistic disorder Rena Cardenas MD 09/16/2018 C61 Malignant neoplasm of prostate Rena Cardenas MD 09/16/2018 R33.9 Retention of urine, unspecified Rena Cardenas MD 09/11/2018 R33.9 Retention of urine, unspecified Noe Hawk PA 09/02/2018 N39.0 Urinary tract infection, site not Ethan Nuñez FNP specified 09/02/2018 R33.9 Retention of urine, unspecified Ethan Nuñez FNP 08/14/2018 R33.9 Retention of urine, unspecified Noe Hawk PA Plan of Treatment Future Appointment(s):06/16/2019 8:30 am - Rena Cardenas MD at [facility] RD04/01/2019 8:40 am - Edi Smith DPM at Podiatry [id number] 10:00 am - Sid Torres MD at Cardiology Qdexvl0307/10/2018 - Noe Hawk, PAC61 Malignant neoplasm of prostateNew Labs:Prostate Specific Antigen , Ordered: 07/10/18Testosterone,Serum, Ordered: 07/10/18Comments:I reviewed the second attendant as well as the residential nurse his prostate cancer treatment plan. I discontinued Casodex. His PSA is still 1.16 with a castrate testosterone. Continue DVT and coldCasodex currently. We'll consider treatment options once PSA and testosterone repeated in 1 month'lrezgC55.0 Urinary tract infection, site not specifiedComments:Cipro elixir faxed to pharmacy. Today's catheterized urine sent for culture and sensitivity Benicarhim prophylactically until the culture [id number] Retention of urine, unspecifiedComments:The patient was catheterized with an 8 Wolof catheter easily. He had a slight distal ureter urethral stricture that opened easily with the family. The bladder was drained for excess of 750 mL's of urine. Terminal drainage was a white proteinaceous fluid. The bladder was irrigated with 240 cc of sterile water until clear. Reviewed with staff potential for suprapubic tube which we will discuss further with the family. I will see patient back in 4 weeks for catheter change Functional Status Functional Condition Comment Date Status Rolling walker is used to ambulate Active Mental Status Description No Information Available Referrals Refer to Reason for Referral Status Appt Date Mayte Anderson M.D. Recurrent UTI - Currently E-Coli and MRSA Closed 2018 [address] [place] [address] [phone] Edi Smith DPM Scheduled 02/17/2019 [address] [facility] [place] [address] [phone]
--- OUTSIDE RECORDS SUMMARY | 2019-04-12 14:32 | XMS REPORT | Continuity of Care Document ---
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 [...] Unknown Never Smoked Cigarettes Smoking Status Reviewed: 04/01/19 Never Smoked Cigarettes ETOH Use Never used alcohol Tobacco Use Start: Unknown Patient has never smoked Allergies, Adverse Reactions, Alerts Description No Known Drug Allergies Medications Active Medications SIG Qnty Indications Ordering Date Provider Omeprazole sprinkle one cap 30caps K21.9 Nafisa Hanley, 04/01/2019 20mg Capsules per day in food PNP-BC, FIRST DY[employer], Ibclc OT Evaluation G20 Hernandez López, 03/13/2019 Fully Electric Super bed deck travel Ronald, 01/27/2019 Low Hosp. Bed 36"X 80" range 7" to 30" MD Rena footboard attend. control and hand pendant control mobility on demand foot brakes foam , pressure reduction Catheter Insertion as needed monthly 6units Irma, 01/22/2019 Tray and is needed with Carmel Calhoun Kit decreased function. Please include a 16 Hungarian catheter Catheter Flush Flush delvalle once a Irma, 01/10/2019 week and prn with Carmel Calhoun 120cc sterile water Sterile Water For 1 liter bottles 3units Irma, 01/02/2019 Irrigation irrigate 3 times Carmel Cal[place]oun Solution per week and as needed Hydrocortisone apply sparingly to 28.350gm Ronald, 11/05/2018 1% Cream minor skin rash 2 MD Rena times a day as needed mdd: 2 Mirtazapine take one tablet by F50.89 Ronald, 09/30/2018 30mg Tablets mouth every night MD Rena for insomnia [place] Urine Drainage change bag as 4units Irma, 08/26/2018 Bag/2000ML needed or once a [facility] week Amantadine HCL Take 5ML (50MG) 150units G20 Nafisa Hanley, 06/18/2018 50mg/5ML By Mouth Daily + + PNP-BC, FIRST DYER, Syrup Lot: Exp: Ibarmin Alprazolam 1 tab 1 hour prior 30tabs [...] cough Acetaminophen 2 tabs by mouth 120tabs Ronadl, 12/13/2017 325mg every 4 hours as MD Rena Tablets needed for pain, headache, temp >101 Jonah Elastic Ok to D/C use of Nafisa Hanley, 10/25/2017 Bandage/Clips jonah bandage PNP-BC, [employer], BNDG 3" Ibclc Misc Pseudoephedrine HCL take 2 tablets by 100taasa Cardenas, 12/12/2016 30mg mouth every 4 MD Rena Tablets hours as needed for nasal congestion /runny nose *max daily dose: 8 tablets Cerovite Senior take 1 tablet by 90taasa Cardenas, 09/12/2016 Tablets mouth daily MD Rena Kaopectate Extra 2 tbsp Q Loose Unknown Strength Stool prn 525mg/15ML Suspension Mylanta 1 tbsp Q4H prn Unknown [phone]/5ML Upset Stomach Suspension Midodrine HCL take one tablet by 270taSid Salmeron, 10mg mouth three times MD Tablets a day Lupron Depot (6-Month) 1 injection every Unknown 6 months for 2 45mg Kit years Carbidopa-Levodopa 1 &1/2 tab by Unknown mouth five times a 25-100mg Tablets day Buspirone HCL 1 tab by mouth Unknown 10mg three times a day Tablets after meals as needed for anxiety. History Medications Keflex 1 by mouth once 1caps Lj Solis, 11/25/2018 - 500mg Capsules given in office M.D. Unknown before procedure Bactrim DS 800-160 take last pill Rena Cardenas, 11/18/2018 - today 11/25/2018 Wheel Chair Dx: [id number] Hernandez López MD 11/12/2018 - 01/27/2019 Esomeprazole Take 1 Capsule 60caps K21.9 Nafisa Hanley, 10/14/2018 - Magnesium Sprinkled In PNP-BC, FIRST [employer]ER, 04/01/2019 20mg Capsules Liquids By Mouth Ibarmin AGUILAR 2 Times A Day -DO Not Crush Or Chew- Immunizations CPT Code Status Date Vaccine Lot # [id number] Given 12/13/2017 Influenza High Dose [id number] Given 12/13/2016 Influenza High Dose [id number] 44791 Given 06/21/2016 Tdap injection [id number] 08098 Given 06/21/2016 Pneumococcal Conjugate Vaccine 13 Valent For [id number] Intramuscular Use Q2038 Given 12/06/2015 Influenza Vaccine (Fluzone) Age 3 And Older [id number] Q2038 Given 01/08/2015 Influenza Vaccine (Fluzone) Age 3 And Older 60081 Given 02/05/2014 flu vaccination 13280 Given 01/01/2012 Pneumovax Injection 95607 Given 01/01/2012 flu vaccination 11655 Given 11/28/2010 flu vaccination 07911 Given 12/28/2009 flu vaccination 38414 Given 02/16/2009 flu vaccination 41293 Given 02/16/2009 H1N1 Immuniation Adminstration 13123 Given 12/11/2008 Hepatitis B Ofelia Adoles For Intramuscular Use 34529 Given 07/31/2008 Hepatitis B Ofelia Adoles For Intramuscular Use 87211 Given 06/11/2008 Hepatitis B Ofelia Adoles For Intramuscular Use Vital Signs Date Vital Result Comment 04/01/2019 9:17am BP Systolic 121 mmHg BP Diastolic 79 mmHg Heart Rate 74 /min O2 % BldC Oximetry 93 % 03/31/2019 2:47pm BP Systolic 120 mmHg BP Diastolic 80 mmHg Body Temperature 97.9 F Heart Rate 84 /min Respiratory Rate 16 /min Weight 157.00 lb O2 % BldC Oximetry 96 % Results Test Acquired Date Facility Test Result H/L Range Note CBC 03/27/2019 [facility] White Blood Count 9.2 K/uL Normal 3.4-10.5 1 [address] [place] [address] [phone] Red Blood Count 3.82 M/uL Low 4.20-5.80 Hemoglobin 11.5 gm/dL Low 12.8-17.0 Hematocrit 35.4 % Low 38.0-48.0 Mean Cell Volume 92.7 fl Normal 80.0-96.0 Mean Corpuscular HGB 30.1 pg Normal 27.0-33.0 Mean Corpuscular HGB Conc 32.5 g/dL Normal 31.7-36.0 Platelet Count 289 K/uL Normal 155-360 Red Cell Distri Width SD 43.1 fl Normal 36-51 Red Cell Distri Width %CV 12.7 % Normal 11.6-15.8 Mean Platelet Volume 9.5 fl Normal 6.6-10.6 NRBC % 0.0 /100WBC < 10/ 100 WBC Basic Metabolic Panel 03/27/2019 [facility] Glucose 82 mg/dL Normal 74-106 [address] [place] [address] [phone] BUN 14 mg/dL Normal 7-18 Creatinine 0.8 mg/dL Normal 0.6-1.3 Glom Filtration Rate, Estimate >60 mL/min >60 If >60 mL/min >60 2 BUN/Creat 17.5 ratio Sodium 140 mmol/L Normal 136-145 Potassium 3.8 mmol/L Normal 3.5-5.1 Chloride 109 mmol/L High 98-107 Carbon Dioxide 27 mmol/L Normal 21-32 Anion Gap 4 mEq/L Low 8-16 Calcium 8.7 mg/dL Normal 8.5-10.1 Basic Metabolic Panel 03/26/2019 [facility] Glucose 85 mg/dL Normal 74-106 [address] [place] [address] [phone] BUN 19 mg/dL High 7-18 Creatinine 0.9 mg/dL Normal 0.6-1.3 Glom Filtration Rate, Estimate >60 mL/min >60 If >60 mL/min >60 3 BUN/Creat 21.1 ratio Sodium 141 mmol/L Normal 136-145 Potassium 3.9 mmol/L Normal 3.5-5.1 Chloride 110 mmol/L High 98-107 Carbon Dioxide 27 mmol/L Normal 21-32 Anion Gap 4 mEq/L Low 8-16 Calcium 8.5 mg/dL Normal 8.5-10.1 Lactic Acid 03/26/2019 [facility] Lactic Acid 1.7 mmol/L Normal 0.4-1.9 [address] [place] [address] [phone] Lab Reflex >2.0 for Sepsis? N CBC W/Automated 03/26/2019 [facility] White Blood 10.5 K/uL Normal 3.4-10.[address] Count [place] Fer[place] [address] [phone] Red Blood Count 3.92 M/uL Low 4.20-5.80 Hemoglobin 12.0 gm/dL Low 12.8-17.0 Hematocrit 35.4 % Low 38.0-48.0 Mean Cell Volume 90.3 fl Normal 80.0-96.0 Mean Corpuscular HGB 30.6 pg Normal 27.0-33.0 Mean Corpuscular HGB Conc 33.9 g/dL Normal 31.7-36.0 Platelet Count 296 K/uL Normal 155-360 Red Cell Distri Width SD 40.5 fl Normal 36-51 Red Cell Distri Width %CV 12.4 % Normal 11.6-15.8 Mean Platelet Volume 9.3 fl Normal 6.6-10.6 Neut% 64.0 % Normal 33.0-73.0 Lymph % 24.5 % Normal 20.0-42.0 Taylor % 8.5 % Normal 0.0-10.0 Eo% 2.1 % Normal 0.0-6.6 Bas% 0.4 % Normal 0.0-1.1 Immature Grans 0.5 % Normal 0.0-5.0 NRBC % 0.0 /100WBC < 10/ 100 WBC Neut# 6.71 K/uL Normal 1.8-7.0 Lymph # 2.57 K/uL Normal 1.0-4.0 Taylor # 0.89 K/uL High 0.0-0.8 Eos # 0.22 K/uL Normal 0.0-0.5 Baso # 0.04 K/uL Normal 0.0-0.1 Immature Grans Absolute 0.05 K/uL NRBC # 0.00 K/uL Blood Culture 03/25/2019 [facility] Blood Culture NO GROWTH: FINAL [address] Aerobic <SEE NOTE> [place] Fer[place] [address] [phone] Blood Culture Anaerobic NO GROWTH: FINAL <SEE NOTE> 5 Blood Culture 03/25/2019 [facility] Blood Culture NO GROWTH: FINAL [address] Aerobic <SEE NOTE> [place] [address] [phone] Blood Culture Anaerobic NO GROWTH: FINAL <SEE NOTE> 7 Urine Culture 03/25/2019 [facility] Urine Culture MIXED URETHRAL F <SEE [address] NOTE> [place] [address] [phone] Quantity > 100,000 CFU/mL 9 Urine Culture 01/22/2019 [facility] Urine ESCHERICHIA COLI Abnormal [address] [place] [address] [phone] Quantity > 100,000 CFU/mL 11 Urine Culture MIXED URETHRAL F <SEE NOTE> 12 Quantity > 100,000 CFU/mL 13 Laboratory test 01/22/2019 [facility] Prostate 1.23 ng/mL < 4.0 14, [address] [place] [address] Antigen [phone] Testosterone,Serum 21 ng/dL Low 264-916 16 Calcium 9.3 mg/dL Normal 8.5-10.1 Escherichia Coli 01/22/2019 [facility] Nitrofurantoin <=16 Susceptible [address] [place] [address] [phone] Trimethoprim/Sulfamethoxazole >=320 Resistant Ampicillin >=32 Resistant Cefazolin <=4 Susceptible Ampicillin/Sulbactam 16 Intermediate Ciprofloxacin >=4 Resistant Piperacillin/Tazobactam <=4 Susceptible Ceftazidime <=1 Susceptible Ceftriaxone <=1 Susceptible Cefepime <=1 Susceptible Levofloxacin >=8 Resistant Imipenem <=0.25 Susceptible Gentamicin <=1 Susceptible Tobramycin <=1 Susceptible Culture If 01/22/2019 [facility] Culture If CULTURE TO 17 Indicated Comment [address] Indicated Comment FOLLO <[place] [address] NOTE> [phone] Source: URINE, STRAIGHT <SEE NOTE> 18 Ua RFX Micro & Culture 01/22/2019 [facility] Urine Color Yellow Yellow II [address] [place] [address] [phone] Urine Clarity Slightly Cloudy Clear Urine Glucose - Dipstick NEGATIVE mg/dL Negative Urine Bilirubin - Dipstick NEGATIVE Negative Urine Ketone NEGATIVE mg/dL Negative Urine Specific [place] 1.018 Normal 1.010-1.030 Urine Blood SMALL Abnormal [...] None Seen Source: URINE, STRAIGHT <SEE NOTE> 19 Blood Culture 12/26/2018 [facility] Blood Culture NO GROWTH: 20, [address] Aerobic FINAL <[place] [address] NOTE> [phone] Blood Culture Anaerobic NO GROWTH: FINAL <SEE NOTE> 22 CBC W/Automated 12/26/2018 [facility] White Blood 9.7 K/uL Normal 3.4-10.[address] [place] [address] [phone] Red Blood Count 4.94 M/uL Normal 4.20-5.80 [...] 33.0-73.0 Lymph % 21.2 % Normal 20.0-42.0 Taylor % 7.3 % Normal 0.0-10.0 Eo% 6.7 % High 0.0-6.6 Bas% 0.7 % Normal 0.0-1.1 Immature Grans 0.3 % Normal 0.0-5.0 NRBC % 0.0 /100WBC < 10/ 100 WBC Neut# 6.18 K/uL Normal 1.8-7.0 Lymph # 2.05 K/uL Normal 1.0-4.0 Taylor # 0.71 K/uL Normal 0.0-0.8 Eos # 0.65 K/uL High 0.0-0.5 Baso # 0.07 K/uL Normal 0.0-0.1 Immature Grans Absolute 0.03 K/uL NRBC # 0.00 K/uL Comprehensive 12/26/2018 [facility] Glucose 92 mg/dL Normal 74-106 Metabolic Panel [address] [place] [address] [phone] BUN 15 mg/dL Normal 7-18 Creatinine 0.9 mg/dL Normal 0.6-1.3 Glom Filtration Rate, Estimate >60 mL/min >60 If >60 mL/min >60 23 BUN/Creat 16.6 ratio Sodium 139 mmol/L Normal [...] Phosphatase 130 U/L High 45-117 Laboratory 12/26/2018 [facility] C-Reactive 4.14 mg/L <3.0 test finding [address] Protein,Cardiac [place], [place] [address] [phone] Urine 12/25/2018 [facility] Urine Culture ESCHERICHIA Abnormal 24 Culture [address] [place] [address] [phone] Quantity > 100,000 CFU/mL 25 Ua RFX Micro & 12/25/2018 [facility] Urine Color Light-Yellow Yellow Culture II [address] [place] [address] [phone] Urine Clarity Clear Clear Urine Glucose - Dipstick NEGATIVE mg/dL Negative Urine Bilirubin - Dipstick NEGATIVE Negative Urine Ketone NEGATIVE mg/dL Negative Urine Specific [place] 1.005 Low 1.010-1.030 Urine Blood SMALL Abnormal [...] Seen Source: URINE, CLEAN CAT <SEE NOTE> 26 Culture If 12/25/2018 [facility] Culture If CULTURE TO 27 Indicated Comment [address] Indicated Comment FOLLO <[place] [address] NOTE> [phone] Source: URINE, CLEAN CAT <SEE NOTE> 28 Ast-GN67 12/25/2018 [facility] Nitrofurantoin <=16 Susceptible [address] [place] [address] [phone] Trimethoprim/Sulfamethoxazole >=320 Resistant Ampicillin >=32 Resistant Cefazolin <=4 Susceptible Ampicillin/Sulbactam 16 Intermediate Ciprofloxacin >=4 Resistant Piperacillin/Tazobactam <=4 Susceptible Ceftazidime <=1 Susceptible Ceftriaxone <=1 Susceptible Cefepime <=1 Susceptible Levofloxacin >=8 Resistant Imipenem <=0.25 Susceptible Gentamicin <=1 Susceptible Tobramycin <=1 Susceptible Urine Culture 09/30/2018 [facility] Urine ESCHERICHIA COLI Abnormal [address] [place] [address] [phone] Quantity > 100,000 CFU/mL 30 Ast-GN67 09/30/2018 [facility] Nitrofurantoin <=16 Susceptible [address] [place] [address] [phone] Trimethoprim/Sulfamethoxazole >=320 Resistant Ampicillin >=32 Resistant Cefazolin <=4 Susceptible Ampicillin/Sulbactam 16 Intermediate Ciprofloxacin >=4 Resistant Piperacillin/Tazobactam <=4 Susceptible Ceftazidime <=1 Susceptible Ceftriaxone <=1 Susceptible Cefepime <=1 Susceptible Levofloxacin >=8 Resistant Imipenem <=0.25 Susceptible Gentamicin <=1 Susceptible Tobramycin <=1 Susceptible 1 UTI, SEPSIS 2 Note: Persistent reduction for 3 months or more in an eGFR <60 mL/min/1.73 m2 defines CKD. Patients with eGFR values >/=60 mL/min/1.73 m2 may also have CKD if evidence of persistent proteinuria is present. The original MDRD equation for estimated GFR is not valid for patients less than 18 years of age. Additional information may be found at www.kdoqi.org. 3 Note: Persistent reduction for 3 months or more in an eGFR <60 mL/min/1.73 m2 defines CKD. Patients with eGFR values >/=60 mL/min/1.73 m2 may also have CKD if evidence of persistent proteinuria is present. The original MDRD equation for estimated GFR is not valid for patients less than 18 years of age. Additional information may be found at www.kdoqi.org. 4 NO GROWTH: FINAL REPORT 5 NO GROWTH: FINAL REPORT 6 NO GROWTH: FINAL REPORT 7 NO GROWTH: FINAL REPORT 8 MIXED URETHRAL ALEXEI 9 > 100,000 CFU/mL SPECIMEN IS A MIX OF GRAM NEGATIVE AND GRAM POSITIVE ORGANISMS. UNABLE TO DETERMINE WHICH ORGANISMS ARE FROM THE URINARY TRACT OR THE RESULT OF CONTAMINATION DURING COLLECTION. SUGGEST REPEAT SPECIMEN IF CLINICALLY INDICATED. 10 ESCHERICHIA COLI 11 > 100,000 CFU/mL 12 MIXED URETHRAL ALEXEI 13 > 100,000 CFU/mL 14 C61 C61 T83.511D 15 THIS ASSAY IS NOT INTENDED A CANCER SCREENING TEST The concentration of PSA in a given specimen, determined with assays from different manufacturers, can vary due to differences in assay methods and reagent specificity. Values obtained from different assay methods cannot be used interchangeably. Method: [employer] Mylo Chemiluminescent immunoassay. 16 Adult male reference interval is based on a population of healthy nonobese males (BMI <30) between 19 and 39 years old. Dara, et.al. JCEM 2017,102;6650-0787. PMID: 85807099. Performed at: RN - [facility] [address] [id number] Feed Management Advisor: Heidi Owens MD, Phone: [phone] 17 CULTURE TO FOLLOW 18 URINE, STRAIGHT CATHETHER 19 URINE, STRAIGHT CATHETHER 20 T83.518A 21 NO GROWTH: FINAL REPORT 22 NO GROWTH: FINAL REPORT 23 Note: Persistent reduction for 3 months or more in an eGFR <60 mL/min/1.73 m2 defines CKD. Patients with eGFR values >/=60 mL/min/1.73 m2 may also have CKD if evidence of persistent proteinuria is present. The original MDRD equation for estimated GFR is not valid for patients less than 18 years of age. Additional information may be found at www.kdoqi.org. 24 ESCHERICHIA COLI 25 > 100,000 CFU/mL 26 URINE, CLEAN CATCH 27 CULTURE TO FOLLOW 28 URINE, CLEAN CATCH 29 ESCHERICHIA COLI 30 > 100,000 CFU/mL Procedures Date Code Description Status 04/01/2019 21102 Trim Nondystrophic Nails Completed 01/22/2019 27502 Insert Of Temporary Indwelling Bladder Catheter,Simple Completed 12/30/2018 42762 Trim Nondystrophic Nails Completed 12/25/2018 66517 Insert Of Temporary Indwelling Bladder Catheter,Simple Completed 11/25/2018 83072 Cystourethroscopy W/ Biopsy Completed 10/21/2018 29013 Insert Of Temporary Indwelling Bladder Catheter,Simple Completed 09/30/2018 26604 Insert Of Temporary Indwelling Bladder Catheter,Simple Completed 10/06/2016 [id number] Colonoscopy Completed Medical Devices Description No Information Available Encounters Type Date Location Provider Dx Diagnosis Office Visit 03/31/2019 Family Medicine Joaquin, N39.0 Urinary tract 2:45p Stephen Long, infection, site FIRST DYER not specified Office Visit 03/13/2019 Family Medicine Hernandez López MD G20 Parkinson's 9:10a Stephen HUNTER disease Z74.09 Other reduced mobility F84.0 Autistic disorder Office Visit 02/19/2019 10:00a Cardiology Office Sid Torres, I95.1 Orthostatic hypotension R94.31 Abnormal electrocardiogram [ECG] [EKG] Office Visit 02/12/2019 1:15p Physical Medicine Mayte Anderson, B96.20 Unsp Escherichia & Infectious M.D. coli as the cause Disease of diseases classd elswhr T83.511D I/I react d/t indwelling urethral catheter, [...] of urine, unspecified Office Visit 01/22/2019 8:45a UrologNoe Kumar, C61 Malignant neoplasm of PA prostate R33.9 [...] bladder Office Visit 12/30/2018 2:45p Podiatry Office Luis I70.203 Unsp athscl jaimie Daley DPGauri arteries of extremities, bilateral legs M20.5x1 Other deformities of toe(s) (acquired), right foot Office Visit 12/23/2018 2:45p Physical Medicine Mayte Anderson, T83.518A I/ I react d/t & Infectious M.D. other urinary Disease catheter, initial encounter G20 Parkinson's disease C61 Malignant neoplasm of prostate F02.80 Dementia in oth diseases classd elswhr w/o behavrl disturb R33.8 Other retention of urine Office Visit 12/03/2018 1:00p UrologNoe Kumar R33.9 Retention of R., PA urine, unspecified Office Visit 11/12/2018 8:30a Family Medicine Hernandez López MD N39.[address] infection, site not specified M20.40 Other hammer toe(s) (acquired), unspecified foot G20 Parkinson's disease Office Visit 11/07/2018 2:00p Urology Lj Solis N39.0 Urinary tract M.D. infection, site not specified Office Visit 10/21/2018 3:45p UrologNoe Kumar R33.9 Retention of urine, PA unspecified Office Visit 09/30/2018 12:00p UrologNoe Kumar, C61 Malignant neoplasm of PA prostate R33.9 Retention of urine, unspecified Assessments Date Code Description Provider 04/01/2019 I70.203 Unspecified atherosclerosis of [place] Luis, Edi, TAMI arteries of extremities, bilateral legs 04/01/2019 M20.5x1 Other deformities of toe(s) (acquired), Edi Smith DPGauri right foot 03/31/2019 N39.0 Urinary tract infection, site not Joaquin LenamiltonyajairaDIONTE specified 03/27/2019 N39.0 Urinary tract infection, site not Denis Longo M.D. specified 03/27/2019 A41.9 Sepsis, unspecified organism Denis Longo M.D. 03/27/2019 R41.82 Altered mental status, unspecified Denis Longo M.D. 03/27/2019 G20 Parkinson's disease Denis Longo M.D. 03/26/2019 N39.0 Urinary tract infection, site not Alejandra Temple M.D. specified 03/26/2019 A41.9 Sepsis, unspecified organism Alejandra Temple M.D. 03/26/2019 R41.82 Altered mental status, unspecified Alejandra Temple M.D. 03/26/2019 G20 Parkinson's disease Alejandra Temple M.D. 03/13/2019 G20 Parkinson's disease Hernandez López MD 03/13/2019 Z74.09 Other reduced mobility Hernandez López MD 03/13/2019 F84.0 Autistic disorder Hernandez López MD 02/19/2019 I95.1 Orthostatic hypotension Sid Torres MD 02/19/2019 R94.31 Electrocardiogram abnormal Sid Torres MD 02/12/2019 B96.20 Unspecified Escherichia coli [E. coli] Mayte Anderson M.D. as the cause of diseases classified elsewhere 02/12/2019 T83.511D Infection and inflammatory reaction due Mayte Anderson M.D. to indwelling urethral catheter, subsequent encounter 02/12/2019 R33.8 Other retention of urine Mayte Anderson M.D. 02/12/2019 N32.3 Diverticulum of bladder Mayte Anderson M.D. 02/12/2019 G20 Parkinson's disease Mayte Anderson M.D. 02/12/2019 F02.80 Dementia in other diseases classified Mayte Anderson M.D. elsewhere without beha 01/27/2019 G20 Parkinson's disease Rena Cardenas MD 01/27/2019 F02.80 Dementia in other diseases classified Rnea Cardenas MD elsewhere without beha 01/27/2019 C61 Malignant neoplasm of prostate Rena Cardenas MD 01/27/2019 R33.9 Retention of urine, unspecified Rena Cardenas MD 01/22/2019 C61 Malignant neoplasm of prostate Noe Hawk PA 01/22/2019 R33.9 Retention of urine, unspecified Noe Hawk PA 01/22/2019 N39.0 Urinary tract infection, site not Noe Hawk PA specified 01/08/2019 T83.511D Infection and inflammatory reaction due Mayte Anderson M.D. to indwelling urethral catheter, subsequent encounter 01/08/2019 B96.20 Unspecified Escherichia coli [E. coli] Mayte Anderson M.D. as the cause of diseases classified elsewhere 01/08/2019 G20 Parkinson's disease Mayte Anderson M.D. 01/08/2019 C61 Malignant neoplasm of prostate Mayte Anderson M.D. 01/08/2019 F02.80 Dementia in other diseases classified Mayte Anderson M.D. elsewhere without beha 01/08/2019 R33.8 Other retention of urine Mayte Anderson M.D. 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 12/30/2018 I70.203 Unspecified atherosclerosis of [place] Edi Smith DPM arteries of extremities, bilateral legs 12/30/2018 M20.5x1 Other deformities of toe(s) (acquired), Edi Smith DPM right foot 12/25/2018 R33.9 Retention of urine, unspecified Noe Hawk PA 12/25/2018 N39.0 Urinary tract infection, site not Noe Hawk PA specified 12/23/2018 T83.518A Infection and inflammatory reaction due Mayte Anderson M.D. to other urinary catheter, initial encounter 12/23/2018 [...] 09/30/2018 R33.9 Retention of urine, unspecified Noe Hawk PA Plan of Treatment Future Appointment(s):04/15/2019 3:00 pm - Lj Solis M.D. at [email or web address] 9:40 am - Edi Smith DPM at Podiatry Ajzlpu5809/26/2019 9:00 am - Rena Cardenas MD at [facility]02/24/2020 9:00 am - Sid Torres MD at Cardiology Hhbrtm9406/16/2019 8:30 am - Rena Cardenas MD at [facility] RD Functional Status Functional Condition Comment Date Status Rolling walker is used to ambulate Active Mental Status Description No Information Available Referrals Refer to Dr Reason for Referral Status Appt Date Mayte Anderson M.D. Recurrent UTI - Currently E-Coli and MRSA Closed [address] [place] [address] [phone] Edi Smith DPM Scheduled 04/01/2019 [address] [facility] [place] [address] [phone]
--- OUTSIDE RECORDS SUMMARY | 2019-04-12 14:32 | XMS REPORT | Summary of Care ---
:1945 Author Organization [facility] Address [address] [place] [address] Care Team Providers Name Role Phone Rose Eduardo MD Primary Care Provider Reason for Visit Auth/Cert Status Reason Specialty Diagnoses / Procedures Referred By Contact Referred To Contact Diagnoses new onset seizure Seizure Encounter Details Date Type Department Care Team Description 02/21/2019 - Hospital Encounter 06B GENERAL José Leahy MD [address] [place] [address] [phone] 02/25/2019 MEDICINE Luis Kramer MD [address] [place] [address] [phone] [address] [facility] Vahid Beckham MD [address] [facility] 2nd Floor, [address] [place] [address] [phone] [place] [address] Allergies No Known Allergiesdocumented as of this encounter (statuses as of 02/25/2019) Medications Medication Sig Dispensed Refills Start Date End Date Status Midodrine HCl 5 Take 10 mg by 0 Active MG Oral Tablet mouth Three (PROAMATINE) Times Daily Mirtazapine 15 MG Take 30 mg by 0 Active Oral Tablet mouth nightly (REMERON) busPIRone HCl 10 Take 10 mg by 0 Active MG Oral Tablet mouth Three (BUSPAR) times daily Amantadine HCl 50 Take 50 mg by 0 Active MG/5ML Oral Syrup mouth daily (SYMMETREL) Carbidopa-Levodop Take 1.5 0 02/25/2019 Active a 25-100 MG Oral tablets by Tablet (SINEMET) mouth Five times daily Esomeprazole Take 1 capsule 0 02/25/2019 Active Magnesium 40 MG by mouth Two Oral Capsule times daily Delayed Release with meals 20 (NEXIUM) mg before breakfast and 20 mg before dinner Cerovite Senior Take 1,500 mg 0 02/25/2019 Active Oral Tablet by mouth daily Esomeprazole Take 20 mg by 0 Discontinued Magnesium 40 MG mouth every 9 (Reorder) Oral Capsule morning before Delayed Release breakfast (NEXIUM) Carbidopa-Levodop Take 1.5 0 Discontinued a 25-100 MG Oral tablets by 9 (Reorder) Tablet (SINEMET) mouth Five times daily Carbidopa-Levodop Take 1 tablet 30 tablet 0 02/25/2019 Discontinued a ER 50-200 MG by mouth every 9 (Stop Taking at Oral Tablet evening Discharge) Extended Release (SINEMET CR) Carbidopa-Levodop Take 2.5 0 02/25/2019 Discontinued a 25-100 MG Oral tablets by 9 (Reorder) Tablet (SINEMET) mouth Five times daily documented as of this encounter (statuses as of 02/25/2019) Active Problems Problem Noted Date Autism 02/22/2019 Parkinson disease 02/22/2019 Chronic indwelling Delvalle catheter 02/22/2019 Hypovolemia 02/22/2019 Seizure 02/21/2019 documented as of this encounter (statuses as of 02/25/2019) Social History Tobacco Use Types Packs/Day Years Used Date Never Assessed Sex Assigned at Date Recorded Not on file Job Start Date Occupation Industry Not on file Not on file Not on file Travel History Travel Start Travel End No recent travel history available. documented as of this encounter Last Filed Vital Signs Vital Sign Reading Time Taken Comments Blood Pressure 119/72 02/25/2019 11:30 AM EST Pulse 81 02/25/2019 11:30 AM EST Temperature 37 02/25/2019 11:30 AM EST C (98.6 F) Respiratory Rate 16 02/25/2019 11:30 AM EST Oxygen Saturation 97% 02/25/2019 11:30 AM EST Inhaled Oxygen Concentration - - Weight 76.7 kg (169 lb) 02/22/2019 3:00 PM EST Height 194 cm (6' 4.38") 02/22/2019 3:00 PM EST Body Mass Index 20.37 02/22/2019 3:00 PM EST documented in this encounter Discharge Instructions Tierra Marquez Ezio - 02/24/2019 9:40 AM ESTPlease contact your primary care physician office to schedule your hospital follow up once you are discharged. Discharge Instr - Other Chip Correa MBBS - 02/24/2019 6:42 PM ESTPlease follow up with Neurologist and Movement disorder clinic at [facility] in 2 week or [place] Please follow up with Your primary care physician in one week. Last Bowel movement : 02/24/19 Last vital signs: temp 36.9, pulse 87, BP 118/77, RR 16 Diet Recommendations: Dental soft diet. cut into 1" pieces; thin liquid Swallow Precautions/Recommendations: Upright position. Small bite/sip. Oral care after meals. 1:1 Supervision. Limit distractions. Assistance with meals. Aspiration Precautions Keep foods moist. food cut into 1" pieces Medication Recommendations: Place in a puree consistency documented in this encounter Progress Notes Magda Vidal RN - 02/25/2019 3:40 PM ESTWriter took over care from [id number]. 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 [facility] IV removed. All paperwork given to group art supervisor. Pt was transported via wheelchair to [facility]. Pt safety maintained. Olga Palomino RN - 02/25/2019 2:08 PM ESTCM spoke with Cyrus long-term RN ([phone]) , all necessary changes to discharge paperwork completed, no other questions or concerns, patient will be picked up today at 3pm by long-term employees. Carolyne Medina RN - 02/25/2019 4:43 AM ESTAssumed care of pt at 2300. During AM bath, procedure writer noticed bright red rash in pt's armpits, upper torso, & lower abdomen that extended to pt's right flank. Rash on abdominal/ flank area presents with small red palpable bumps. Pt denies itching, pain, discomfort, etc. #2 NF notified, no new orders at this time, will continue to monitor.. Migue Linda RN - 02/24/2019 10:[address] Mathews and notified that urine output was 200 mL for the for hours I assumed care of patient. Last recorded output was 250 at noon. Patient's IV fluids were stopped today. Reviewed 24hr output. Instructed to continue to measure output. Migue Linda RN - 02/24/2019 9:58 PM ESTAssuming care of patient for four hours. No changes noted, agree with previously documented assessment. Chip Thompson MBBS - 02/24/2019 5:27 PM EST Internal Medicine Inpatient Progress Note Subjective Pt seen and examined at the bedside. Was in no acute distress. Answers in yes or no. Denies fever, chills, SOB, abdominal pain, dysuria, diarrhea, n/v. No acute overnight events. Pt went for EEG today. Review of Systems Constitutional: Negative for activity change, appetite change, chills and fever. HENT: Negative for congestion, sinus pressure and sinus pain. Respiratory: Negative for cough, shortness of breath and wheezing. Cardiovascular: Negative for chest pain, palpitations and leg swelling. Gastrointestinal: Negative for abdominal distention, abdominal pain, constipation, diarrhea, nausea and vomiting. Genitourinary: Negative for dysuria, flank pain and frequency. Psychiatric/Behavioral: Negative for agitation. The patient is not nervous/ anxious. Objective Temp: [36.4 C-37.5 C] 36.8 C Pulse: [84-96] 85 Resp: [16-18] 18 BP: (101-113)/(65-71) 103/69 SpO2: [95 %-99 %] 99 % O2 Therapy: Room air Intake/Output Summary (Last 24 hours) at 02/24/2019 1727 Last data filed at 02/24/2019 1500 Gross per 24 hour Intake 2188.67 ml Output 950 ml Net 1238.67 ml I/O last 3 completed shifts: In: 2238.7 [P.O.:1160; I.V.:880.7; IV Piggyback:198] Out: 1250 [Urine:1250] No intake/output data recorded. Physical Exam Constitutional: Non-toxic appearance. He does not appear ill. No distress. Eyes: Right eye exhibits no discharge. Left eye exhibits no discharge. No scleral icterus. Neck: Normal range of motion. No neck rigidity. Cardiovascular: Normal rate and regular rhythm. Exam reveals no gallop. No murmur heard. Pulmonary/Chest: Breath sounds normal. No respiratory distress. He has no wheezes. He has no rales. Abdominal: Soft. Normal appearance. He exhibits no distension. There is no abdominal tenderness. There is no guarding. Musculoskeletal: Normal range of motion. General: No swelling. Right lower leg: No edema. Left lower leg: No edema. Neurological: He is alert. Skin: He is not diaphoretic. Lines, Tubes, Monitors & Restraints Description Still Required? Comments PIV [x] Yes [] No Delvalle [x] Yes [] No Total Days of Anti-infective Therapy: 4 Laboratory Data (Most Recent in Past 3 Days) Lab 02/21/19225302/22/19 0255 02/24/19 0329 WBC 10.8* 9.3 11.0* HGB 13.0* 12.9* 12.0* HCT 37.4* 37.5* 35.0* MCV 89.2 89.4 90.2 PLT 295 291 262 Lab 02/21/19225302/22/19 0255 02/24/19 0329 NA 138 141 143 K 3.8 3.6 4.2 CL 102 103 105 BICARBONATE 25 27 27 GLUCOSE 87 84 91 BUN 14 13 12 CREATININE 0.83 0.85 0.90 Lab 02/21/194 02/24/19 0329 CALCIUM 9.1 < > 9.3 MG 2.2 -- -- PHOS 3.9 -- -- < > = values in this interval not displayed. Lab 02/21/19 2254 02/22/19 0255 02/24/19 0329 NEUTOPHILPCT 64 63 63 LYMPHOPCT 24 24 20 MONOPCT 9 9 8 EOSPCT 2 3 8 Lab 02/21/194 PROT 6.6 ALBUMIN 3.8 AST 20 ALT 26 TBILI 1.0 ALKPHOS 94 Xr Abdomen Ap Abd Supine Only Result Date: 02/22/2019 IMPRESSION: Nonspecific bowel gas pattern Assessment/Plan Mr. Matt Farafn is a 74 y/o M who is a long-term resident with a PMHedical history significant for autism, Parkinson's disease; cognitive impairment; history of urinary retention on chronic delvalle and recurrent UTIs with prior urine culture showing pseudomonas and MRSA (last one two months ago as per brother) presenting as a transfer from [facility] for management of new tonic clonic seizure that happened twice on day of presentation, one at home, and one in the ED. 1) New onset generalized tonic clonic seizure - likely 2/2 UTI vs abrupt discontinuation of xanax vs initiation of buspirone -received 1 mg IV lorazepam at [place] [facility] - CXR at OSH negative - UA showed LE 3+ and 30 WBC - Neurology onboard. Recommend: - No anti-epileptic medications at this time - Hold Xanax and continue buspirone - Routine EEG done today: will f/u results - Seizure precautions - MRI brain was done showed no acute process -Urine culture was negative and pt completed 3 day course of zosyn. Will discontinue today -No seizures since admission; will monitor 2)UTI with chronic delvalle - UA at [facility] was 3+ LE and 30 WBC - Urine culture negative - Delvalle changed on 02/21/19 - Afebrile. No white count -Completed 3 days course of IV zosyn; discontinued today - Will continue to monitor 3)autism, parkinson, cognitive impairement: -Pt at baseline -continue with home remeron; amantadine ; sinemet -Will continue to monitor 4)Physical Deconditioning - PT/OT consult was done; pt will be going back to previous long-term 5)GERD: -Continue protonix DVT Prophylaxis: low molecular weight heparin and heparin GI Prophylaxis: Not Indicated Functional Status: moderately impaired Code Status: DNR/DNI Disposition: Plan discharge to: Assisted Living Estimated Discharge Date: TBD The patient was discussed with Vahid Beckham MD who agrees with the assessment and plan as noted above. Chip Hogan MBBS Date and time: 02/24/2019 at 5: 27 PM Associated attestation - Vahid Beckham MD - 02/24/2019 5:56 PM SOOL saw and examined the patient, I have discussed the case with resident in detail , I also reviewed patient's chart including, available Lab, EKG and Imaging personally. I agree with resident's assessment and plan. Patient is doing well, his urine culture negative and we stopped zosyn, he had EEG done today, follow report, no further seizure noted in hospital, no need of AED or BZD taper per neuro. Patient will need continue follow his PD neurology in [place]. PT/OT assessed patient and cleared for discharge back to long-term. We will plan d/c to long-term tomorrow once EEG report available. Vahid Beckham MD [facility] Medicine Pager: [phone] Zuri Carrera, OT - 02/24/2019 12:31 PM ESTOccupational Therapy Acute Care Treatment Note Medical Diagnosis: Transfer from [facility] for management of new seizure. Rehabilitation Precautions/Restrictions: DNR/DNI Goal Review Visit Number: 1 SUBJECTIVE Patient Report: "good" Pain: Patient currently complains of pain. Location: stomach . Patient describes pain as Nonspecific. Verbal Scale: Unable to articulate. Pain Medication Today: yes. OBJECTIVE General Observation: Pt. finishing working with PT. Pt. in recliner. Chair alarm was on at start of session. Vital Signs: Stable. Range of Motion:No change observed. Strength:No change observed. Skin Integrity Screen: Visualize skin grossly intact Self Care/Home Management: Eating: Minimal Assistance. Grooming: Minimal Assistance. Splinting: No splint issued today. Cognitive Test Score: Not tested. Outcome Measures: [facility] AM-PAC "6 Clicks" Daily Activity Inpatient Short Form: Putting on and taking off regular lower body clothing: A lot of assistance (2) Bathing (including washing, rinsing, and drying): A lot of assistance (2) Toileting (including use of toilet, bedpan, or urinal): A lot of assistance (2) Putting on and taking off regular upper body clothing: A lot of assistance (2) Taking care of personal grooming such as brushing teeth: A lot of assistance (2) Eating meals: A lot of assistance (2) Raw Score: Interventions: Self Care/Home Management: Therapist facilitated feeding and grooming with pt to increase UE strength. Pt. was able to lift a swab with water to his mouth and could wash his face with the wash cloth. Pt. requiring minimum assistance to place utensil and wash cloth in his hand. Therapist facilitated repositioning for skin integrity. Pt's legs were elevated with a pillow in between to prevent adduction as pt. has increased tone in LEs. Therapist reviewed CM note - Pt. is at his baseline for functional mobility and assistance with ADLs. Pt. does not need skilled therapy at this time and is able to return to long-term with prior level of assistance. Pt. left in recliner with all needs met. Education: Mode of education provided: Explanation. Audience: Patient. Education Provided: Role of OT, d/c recommendations . Response: Indicates understanding. ASSESSMENT Response to Visit: The session was tolerated poorly, as evidenced by: Pt. has difficulty participating in ADLs d/t decreased strength/coordination. Pt. at baseline for assistance needed for ADLs. Chair alarm was on at end of session. Pain: Yes, pain is unchanged from start of today's treatment. Goal review: Short Term Goals: 1. Patient will perform grooming by washing face EOB with moderate assistance within 1 week. Status: Goal Met- Pt. washed face in chair with set-up assistance. This is pt's baseline 2. Patient will perform self feeding for 25% of meal with AD PRN with moderate assistance within 1 week. Status: Per CM note, facility was providing assistance for feeding. Clinical Audiologist Goals: 1. Patient will perform bed mobility to achieve side-lying position with minimal assistance within 2 weeks. Status: Pt. requires mod assistance for bed mobility. Pt. at baseline. PLAN Treatment Frequency, Duration and Interventions: The patient has been discharged from Occupational Therapy services secondary to: No need for skilled therapy intervention at this time. Per CM note: "Pt resides at [facility] long-term BLACKING MACHINE OPERATOR. long term staff assist pt with ADLs, out of bed using sit to stand vs christina, gait belt for ambulation and feeding BLACKING MACHINE OPERATOR. Pt frequently uses WC BLACKING MACHINE OPERATOR." Pt's current function appears to be at baseline. If there are any changes in pt's function, OT is available. Equipment Provided: None issued this visit. Equipment Recommended: None. Recommended Occupational Therapy Follow Up: Upon acute care discharge, the following is currently recommended: Return to long-term at prior level of assistance Recommended Consults: None currently. Development of Plan of Care: Participants included: Patient. Visit Number: Today's visit is number 2 Program: General Medicine (Therapist may be reached on [employer]) 0 SESSION: Duration: 17 CHARGES: 88465 - CHARGE - OT SELF CARE ADL TRAIN-15 MIN 1 Units - GENERAL MEDICINE VISIT 1 Units Total treatment minutes: 17.00 Minutes Electronically Signed by: ZOË Cleveland/L, 02/24/2019 1:54:11 PM Sky Sandoval, PT - 02/24/2019 12:13 PM ESTPhysical Therapy Acute Care Treatment Note Medical Diagnosis: seizure Rehabilitation Precautions/Restrictions: seizure precautions and aspiration precautions. Goal Review Visit Number: 2 SUBJECTIVE Patient Report: "feel good" Pain: Patient unable to report pain, utilized USR Scale Respiratory: 0 = Baseline respiratory rate, normally/or ventilator compliance Physiology: 0 = stable vital signs Facial Expression 0 = neutral or smiling Body Language: 0 = relaxed, normal muscle tone Consolability: 0 = no need to console, content, relaxed USR Total Pain Score: 0 Pain Medication Today: yes. OBJECTIVE General Observation: Pt. found supine in NAD with intact PIV RUE. Bed alarm was on at start of session. Vital Signs: Stable. Range of Motion:No change observed. Strength:No change observed. Skin Integrity Screen: Visualize skin grossly intact Functional Status: Transfers: Patient transferred sit to/from stand requiring moderate assistance of 1 person. Patient used the following equipment: rolling walker. Patient used the following equipment: Transfer belt. Bed Mobility: Patient moves from supine to/from sit requiring moderate assistance. for his torso Locomotion/Wheelchair: Not assessed. Locomotion/Gait/Ambulation: Patient was moderate assist with gait/ambulation of 1 person for 30' . Patient requires the following assistive device(s): Rolling walker. Gait belt. Stairs: Not applicable for this patient at this time. Outcome Measures: [facility]-PAC "6 Clicks" Basic Mobility Inpatient Short Form: Turning over in bed: Unable to perform (1) Sitting down on and standing up from a chair with arms: Unable to perform (1) Moving from lying on back to sitting on the side of the bed: Unable to perform (1) Moving to and from a bed to a chair (including a wheelchair): A lot of help (2) Walking in hospital room: A lot of help (2) Climbing 3-5 steps with a railing: Total assistance (1) Raw Score 8 /24. Interventions: Therapeutic Activities: PT facilitated rolling training with verbal cues for pt. to reach for and pull from bed rail and moderate assist with his damien LE. PT facilitated supine to sit training with verbal cues for logrolling technique and moderate assist for his torso. PT facilitated sit to stand and stand pivot transfers with verbal cues for safe transfer technique to push up from bed / armrests to stand and reach back for bed / armrests to sit with rolling walker, moderate assist, and on 2/2 trials. Gait Training: PT facilitated gait training with verbal cues for heel first initial contact while pt. ambulated 30' with rolling walker and moderate assist due to his unsteadiness with gait belt. Education: Mode of education provided: Explanation. Audience: Patient. Nurse. Education Provided: PT explained that the patient appears to be at his baseline for mobility and so does not require skilled PT at this time. . Response: Indicates understanding. ASSESSMENT Response to Visit: The session was tolerated well. Chair alarm was on at end of session. Call georges was in patient's reach at end of session. Pain: Yes, pain is unchanged from start of today's treatment. Goal review: Short Term Goals: 1. Pt will supine to sit with mod assist in 1 week. Status: Goal Met - Pt. required moderate assist x 1 for sit to from supine transition. 2. Pt will transfer with min assist x 1 in one week. Status: Goal Discontinued - Upon clarification of his baseline function, the pt. required occasional total mechanical lift for transfers at the long-term. Pt. requires moderate assist x 1 for sit to stand with rolling walker using gait belt. Clinical Audiologist Goals: 1. Pt will perform bed mobility with stand by assist in 2 weeks. Status: Goal Discontinued - This goal is not realistic, because the patient requires physical assist for all mobility at baseline. Pt requires moderate assist for bed mobility. 2. Pt will transfer with stand by assist in 2 weeks. Status: Goal Discontinued - This goal is not realistic. Pt. requires occasional total mechanical lift at baseline for transfers and currently required moderate assist with rolling walker for transfers. Changes in or Continuation of Plan of Care: No further Physical Therapy is warranted at this time. Goals have been MET. No need for skilled therapy intervention at this time. PLAN Treatment Frequency, Duration and Interventions: Physical Therapy services are discontinued at this time secondary to: Goals have been MET. No need for skilled therapy intervention at this time. Equipment Provided: None issued this visit. Equipment Recommended: None, patient has necessary equipment at home. Recommended Physical Therapy Follow Up: Upon acute care discharge, the following is currently recommended: None at this time. manager bakery called the long-term today to clarify baseline function. Per Nurse Norris at the long-term, the pt. was mostly wheelchair bound at baseline and staff assist him with all ADL and occasionally use a total mechanical lift to transfer the patient. Pt. appears to be at his baseline and so does not need PT. Recommended Consults: None currently. Development of Plan of Care: Participants included: Insurance Salesman Nurse. Patient. Visit Number: Today's visit is number 2 Program: General Medicine (Therapist may be reached on [employer]) SESSION: Duration: 23 CHARGES: - ORDER - Physical Therapy Treatment 1 Units 32380 - CHARGE - PT GAIT TRNG - 15 MIN 1 Units 24812 - CHARGE - PT THERAPEUTIC ACTIVITIES - 15 MIN 1 Units - GENERAL MEDICINE VISIT 1 Units Total treatment minutes: 23.00 Minutes Electronically Signed by: Sky Bernal PT, DPT, PT, DPT 02/24/2019 2:39:59 PM Fanta Brantley RN - 02/24/2019 11:13 AM ESTCase Management Screen & Assessment Patient's Name: Mattlinda Farfan Date of : 1945 Age: 74 y.o. Gender: male Attending Provider: Vahid Beckham MD Admitting Diagnosis: new onset seizure Seizure Admission Date and Time: 02/21/2019 8:24 PM High Risk Criteria - BLACKING MACHINE OPERATOR/Upon Arrival BLACKING MACHINE OPERATOR-Type of Residence: long term BLACKING MACHINE OPERATOR- Care [facility] BLACKING MACHINE OPERATOR- Home Care Services: No Limited Home Supports/Lives Alone?: No Multi trauma/Critical care admit?: No Head/Spinal cord injury?: No Self pay/No prescription plan?: No Active with homecare?: No Multiple ED visits?: No Related/Unplanned readmission within 30 days?: No Complex/New medical issues: seizure Relevant comorbidities: Autism, Parkinsons, COPD, chronic delvalle Func/Cognitive/Behavorial deficit(s): pt primarily is WC bound and needs assistance with ADLs SNF/long term/Facility: [facility] Bedhold?: Yes CM Screen Outcome Insurance Salesman Screen Outcome: Meets high risk criteria for active manager of case intervention Patient/Agent informed of choice and given written list?: Patient/agent declined list Important message (Medicare rights) given?: Yes Date Given: 02/22/19 CM Chart Review Notice of Privacy Practice Signed?: Yes Self Pay: No Prescription Plan?: Yes (comment) BLACKING MACHINE OPERATOR: Functional/Environmental Assessment Came from Rehab/SNF, plan to return?: No Brief physical/psychosocial summary: pt resides at long-term Bathing: Needs assistance Dressing: Needs assistance Toileting: Needs assistance Medication administration: Needs assistance Transfers: Needs assistance Ambulation: Needs assistance Meal preparation: Needs assistance Number of stairs into home: 0 Number of stairs to bathroom: 0 Number of stairs to bedroom: 0 Durable Medical Equipment (DME): Walker, Wheelchair-manual(christina lift, sit to stand, gait belt) Discharge Assessment Patient/family informed of need for discharge planning?: Yes Patient/Agent informed of choice and given written list?: Patient/agent declined list Living Arrangements: Other (Comment) Support Systems: Family members, Other (Comment) Type of Residence: long term Note: This procedure writer spoke with long-term school psychologist assistant and long-term RN Myrna on the phone, CM role explained. Myrna RN is covering for pt's long-term RN Cyrus Jay Jay for today. Pt residesat [facility] long-term BLACKING MACHINE OPERATOR. long term staff assist pt with ADLs, out of bed using sit to stand vs christina, gait belt for ambulation and feeding BLACKING MACHINE OPERATOR. Pt frequently uses WC BLACKING MACHINE OPERATOR. Pt admitted with seizure.Pt discussed with Team 2, anticipate d/c today once diagnostic tests are completed. Myrna SOSA requested d/c paperwork be faxed to for review prior to d/c. CM will continue to follow. Fanta Aerllanoectronically signed by Fanta Arellano RN at 02/24/2019 11: 18 AM Zuri Echeverria OT - 02/24/2019 10:14 AM ESTOccupational Therapy Acute Care Missed Visit Note Location: Bedside. Attempted to visit patient for therapy, but was unable for the following reasons: Patient gone for testing. EEG EMG. Will reattempted when appropriate. (Therapist may be reached on Vocera) SESSION: Duration: 0 CHARGES: - ORDER - Occupational Therapy Treatment 1 Units - CHARGE-IP OT PATIENT GONE FOR TESTING 1 Units Total treatment minutes: 0.00 Minutes Electronically Signed by: ZOË Cleveland/Filomena, 02/24/2019 10:14:55 AM Regla Shahid RN - 02/24/2019 4:20 AM ESTTele orders . Text page sent to night float to renew orderElectronically signed by Regla Cummins RN at 2018 4:20 AM Baldo Santoyo RN - 02/23/2019 7:37 PM ESTPt has a chronic delvalle. Per hospital protocol delvalle orders are for 3 days and on the 2nd day the RNneeds to notify the primary team. Primary team was notified. The delvalle will continued to be used since it is a chronic delvalle. Baldo Santoyo RN - 02/23/2019 6:34 PM ESTPt is refusing is evening finger stick; team has been called. Pt lost his peripheral access in his rt hand at 1750. Pt peeled the Tegaderm and when giving a bath it came out of his hand. Baldo Santoyo RN - 02/23/2019 2:55 PM ESTPt has refused his morning labs. The overnight nurse informed the night float. I informed the team was informed this morning along with the fact the pt is refusing his fingerstick and Lovenox shot. Vahid Huynh MD - 02/23/2019 8:36 AM EST Internal Medicine Inpatient Progress Note Subjective Patient feels well, he is pleasant, able to answer yes or no, he denies any complain, he is eating well, no overnight events Review of Systems Constitutional: Negative for chills and fever. HENT: Negative for congestion and rhinorrhea. Respiratory: Negative for cough and shortness of breath. Gastrointestinal: Negative for abdominal pain and nausea. Genitourinary: Negative for flank pain and hematuria. Neurological: Positive for tremors. Negative for dizziness and headaches. Psychiatric/Behavioral: Negative for agitation. Objective Temp: [36.3 C-37.2 C] 36.4 C Pulse: [61-100] 77 Resp: [18] 18 BP: (89-112)/(61-68) 95/62 SpO2: [93 %-96 %] 95 % O2 Therapy: Room air Intake/Output Summary (Last 24 hours) at 02/23/2019 1456 Last data filed at 02/23/2019 1400 Gross per 24 hour Intake 2950 ml Output 2525 ml Net 425 ml I/O last 3 completed shifts: In: 2590 [P.O.:540; I.V.:2000; IV Piggyback:50] Out: 2525 [Urine:2525] I/O this shift: In: 720 [P.O.:720] Out: 850 [Urine:850] Physical Exam Constitutional: No distress. HENT: Mouth/Throat: Mucous membranes are moist. Oropharynx is clear. Cardiovascular: Normal rate and normal heart sounds. Pulmonary/Chest: Effort normal. He has no wheezes. Abdominal: Soft. There is no abdominal tenderness. Genitourinary: Genitourinary Comments: Delvalle in place, no flank tenderness Musculoskeletal: General: No swelling or tenderness. Neurological: He is alert. Patient is awake, with his baseline mentation Skin: Skin is warm and dry. Nursing note and vitals reviewed. Lines, Tubes, Monitors & Restraints Description Still Required? Comments PIV [] Yes [] No Delvalle [] Yes [] No Total Days of Anti-infective Therapy: 3 Anti-infectives (From admission, onward) Start Dose/Rate Route Frequency Ordered Stop 02/22/19 1030 piperacillin-tazobactam (ZOSYN) IVPB 3.375 g (premix) 3.375 g 12.5 mL/hr over 4 Hours Intravenous Every 8 hours 02/22/19 1017 02/27/19 1029 Laboratory Data (Most Recent in Past 3 Days) Reviewed personally Lab 02/21/19225302/22/19 0255 WBC 10.8* 9.3 HGB 13.0* 12.9* HCT 37.4* 37.5* MCV 89.2 89.4 PLT 295 291 Lab 02/21/19 2254 02/22/19 0255 NA 138 141 K 3.8 3.6 CL 102 103 BICARBONATE 25 27 GLUCOSE 87 84 BUN 14 13 CREATININE 0.83 0.85 Lab 02/21/19 2254 02/22/19 0255 CALCIUM 9.1 9.2 MG 2.2 -- PHOS 3.9 -- Lab 02/21/194 02/22/19 0255 NEUTOPHILPCT 64 63 LYMPHOPCT 24 24 MONOPCT 9 9 EOSPCT 2 3 Lab 02/21/19 2254 PROT 6.6 ALBUMIN 3.8 AST 20 ALT 26 TBILI 1.0 ALKPHOS 94 Imaging: Recent MRI brain reviewed Assessment/Plan Mr. Matt Farfan is a 74 y.o. male who is here for # Seizure, GTCS - Likely in setting of sudden stoppage of Xanax and possible urine infection - Neurology following, no AED or BZD taper advised - MRI brain done which did not show any lesion, or bleed. - Will get EEG tomorrow per neuro recs # Possible urinary infection in setting of chronic delvalle - Patient noted to have pyuria on UA with chronic delvalle - Delvalle changed - He was given Zosyn with hx of Pseudomonas in urine - His urine culture reported no growth in 1 day - We will stop antibiotic after 3 days total tomorrow # Autism, Parkinson disease, Cognitive impairment - He is able to answer yes or no but no other communication - Continue PD meds per neurology he follows at [facility] # GERD - On nexium at home, continue protonix here # Deconditioning - PT and OT recs pending progress, per OT, he might need higher level of care, follow PT/OT recs anddischarge planning with CM tomorrow DVT Prophylaxis: low molecular weight heparin GI Prophylaxis: PPi Reason: History of GERD Functional Status: mildly impaired Code Status: DNR/DNI Disposition: Plan discharge to: TBD Estimated Discharge Date: TBD Overall amount of data reviewed, level of risk, complexity and medical decision making is: Moderate Signature: Vahid Beckham MD Date/Time: February 23, 2019 2:56 PM Meagan Nicholson RN - 02/23/2019 3:08 AM ESTPt refused AM labs. Night float Bianka Stallworth notified. Baldo Santoyo RN - 02/22/2019 7:41 PM ESTPt refused his evening fingerstick. His breakfast and lunch he ate majority of the meal, but for dinner he only wanted to eat his cookie. Brenton Ruiz MD - 02/22/2019 12:17 PM EST Internal Medicine Inpatient Progress Note Subjective Patient was seen resting comfortably at bedside this AM. He was sleeping on my arrival. Upon waking patient, he was alert. He only responds in 1-2 words at a time. He denied any complaints at this time. Patient endorses remembering having the two seizures. He feels well at this time. He denies nausea,vomiting, diarrhea or constipation. He states that he needs to go to the bathroom. Review of Systems Constitutional: Negative for activity change, appetite change, chills and fever. HENT: Negative for congestion, sinus pressure and sinus pain. Respiratory: Negative for cough, shortness of breath and wheezing. Cardiovascular: Negative for chest pain, palpitations and leg swelling. Gastrointestinal: Negative for abdominal distention, abdominal pain, constipation, diarrhea, nausea and vomiting. Genitourinary: Negative for dysuria, flank pain and frequency. Psychiatric/Behavioral: Negative for agitation. The patient is not nervous/ anxious. Objective Temp: [36.3 C-37 C] 36.3 C Pulse: [92-101] 101 Resp: [18] 18 BP: (103-125)/(51-81) 114/76 SpO2: [92 %-98 %] 92 % O2 Therapy: Room air Intake/Output Summary (Last 24 hours) at 02/22/2019 1217 Last data filed at 02/22/2019 1155 Gross per 24 hour Intake 420 ml Output 2025 ml Net -1605 ml I/O last 3 completed shifts: In: 60 [P.O.:60] Out: 1175 [Urine:1175] I/O this shift: In: 360 [P.O.:360] Out: 850 [Urine:850] Physical Exam Constitutional: Non-toxic appearance. He does not appear ill. No distress. Eyes: Right eye exhibits no discharge. Left eye exhibits no discharge. No scleral icterus. Neck: Normal range of motion. No neck rigidity. Cardiovascular: Normal rate and regular rhythm. Exam reveals no gallop. No murmur heard. Pulmonary/Chest: Breath sounds normal. No respiratory distress. He has no wheezes. He has no rales. Abdominal: Soft. Normal appearance. He exhibits no distension. There is no abdominal tenderness. There is no guarding. Musculoskeletal: Normal range of motion. General: No swelling. Right lower leg: No edema. Left lower leg: No edema. Neurological: He is alert. Skin: He is not diaphoretic. Lines, Tubes, Monitors & Restraints Description Still Required? Comments PIV [x] Yes [] No Delvalle [x] Yes [] No Total Days of Anti-infective Therapy: 2 Anti-infectives (From admission, onward) Start Dose/Rate Route Frequency Ordered Stop 02/22/19 1030 piperacillin-tazobactam (ZOSYN) IVPB 3.375 g (premix) 3.375 g 12.5 mL/hr over 4 Hours Intravenous Every 8 hours 02/22/19 1017 02/27/19 1029 Laboratory Data (Most Recent in Past 3 Days) Lab 02/21/194 02/22/19 0255 WBC 10.8* 9.3 HGB 13.0* 12.9* HCT 37.4* 37.5* MCV 89.2 89.4 PLT 295 291 Lab 02/21/19225302/22/19 025 NA 138 141 K 3.8 3.6 CL 102 103 BICARBONATE 25 27 GLUCOSE 87 84 BUN 14 13 CREATININE 0.83 0.85 Lab 02/21/19225302/22/19254 CALCIUM 9.1 9.2 MG 2.2 -- PHOS 3.9 -- Lab 02/21/19225302/22/19 025 NEUTOPHILPCT 64 63 LYMPHOPCT 24 24 MONOPCT 9 9 EOSPCT 2 3 Lab 02/21/192253 PROT 6.6 ALBUMIN 3.8 AST 20 ALT 26 TBILI 1.0 ALKPHOS 94 Xr Abdomen Ap Abd Supine Only Result Date: 02/22/2019 IMPRESSION: Nonspecific bowel gas pattern Assessment/Plan Mr. 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 #new onset generalized tonic clonic seizure - likely 2/2 UTI vs abrupt discontinuation of xanax vs initiation of buspirone -received 1 mg IV lorazepam at [place] [facility] - CXR at OSH negative - UA showing LE 3+ and 30 WBC - Neurology onboard. Recommend: - No anti-epileptic medications at this time - Hold Xanax and continue buspirone - Routine EEG on Sunday - Seizure precautions - Repeat CT brain if patient does not tolerate MRI - Will continue to monitor #UTI with chronic delvalle -urinalysis positive in ED of [facility] UA at [facility] was 3+ LE and 30 WBC - Will discontinue ceftriaxone, and start zosyn given history of pseudomonas and MRSA on previous UTIs - Will f/u urine culture and sensitivity - Delvalle changed on 02/21/19 - Vitals are stable. Afebrile. No white count - Will continue to monitor #autism, parkinson, cognitive impairement: -as per brother, patient is disoriented at baseline; barely walking now with a walker -continue with home remeron; amantadine ; sinemet (adjusted dosing based on neurology recommendations from chart review of records from [place]) - diet adjusted as per home diet (thin liquid with solid food cut into 1 inch pieces) - INFORMATION TECHNOLOGY OFFICER evaluation placed for swallow evaluation #Physical Deconditioning - PT/OT consult placed. Will f/u recs #GERD: -likely contributing to his dysphagia too -continue with home nexium 20 mg bid -encourage elevation of head of bed during feeding DVT Prophylaxis: low molecular weight heparin and heparin GI Prophylaxis: Not Indicated Functional Status: moderately impaired Code Status: DNR/DNI Disposition: Plan discharge to: Assisted Living Estimated Discharge Date: TBD The patient was discussed with Vahid Beckham MD who agrees with the assessment and plan as noted above. Brenton Mccloud MD Internal Medicine, PGY-1 Date/Time: February 22, 2019 12:17 PM Associated attestation - Vahid Beckham MD - 02/22/2019 3:24 PM SOLO saw and examined the patient, I have discussed the case with resident in detail , I also reviewed patient's chart including, available Lab, EKG and Imaging personally. I agree with resident's assessment and plan with addition and exceptions as below. Patient presented from OSH with seizure, which could be combination from sudden stoppage of Xanax and possible urine infection per neurology with discussion with them, no anti seizure medication or BZDtaper advised by neuro, they advised to continue off Xanax and Buspar for his anxiety. OSH CT head negative, we will get MRI brain if tolerates otherwise repeat CT head, EEG on Sunday if remain admitted. Continue his PD medication which adjusted as he was getting different per Neurology, he follows PD neurology at [place]. Continue follow urine culture, Ceftriaxone changed to Zosyn with previous pseudomonas, continue IV hydration. Will stop antibiotic if culture negative as he will always have pyuria with chronic delvalle. Discussed with Surrogate decision maker brother, answered all of his questions and DNI./DNR verified. Overall amount of data reviewed, level of risk, complexity and medical decision making is: Moderate Vahid Beckham MD Hospital Medicine Pager: [phone] Yari Gibbs RN - 02/22/2019 3:01 AM EST Yari Lucio RN - 02/22/2019 1:43 AM ESTIf wound was present on admission, this documentation was sent to attending provider for cosignature. Shira Cullen MD - 02/21/2019 11:00 PM EST Attending Note I saw and evaluated the patient independently bedside on 6 . He is unable to give history, reviewed from the chart(outside). He is admitted with Sz witnessed. Recently he was started on Buspirone and also his BZD was DC'ed 5 days w/o tapering. He has chronic delvalle ??. We need to confirm that. On my Exam:- Awake and I am not able to understand what he said. PERRLA, Oral Mucosa Dry+ Cannot appreciate JVD due to body habitus No Pallor No Icterus Resp BL CTA & No added sounds CVS: RRR,S1,S2 no MRG Abdomen: Soft,BS+,does not wince on palpation BUSINESS PLANNER: All 4 limbs are rigid probably I think may be baseline. Delvalle + Lab 02/21/19 2254 HCT 37.4* HGB 13.0* MCH 31.0 MCHC 34.8 MCV 89.2 PLT 295 RDW 12.9 WBCUA -- WBC 10.8* Recent Labs Lab 02/21/19 2254 02/22/19 0255 NA 138 141 K 3.8 3.6 CL 102 103 BICARBONATE 25 27 GLUCOSE 87 84 BUN 14 13 CREATININE 0.83 0.85 BCR 17 15 GFRAA >90 >90 GFRNONAA 85 84 BP 123/79 (BP Location: Right arm, Patient Position: Lying) | Pulse 98 | Temp 37 C (Axillary)| Resp 18 | SpO2 98% - Septic work and for now treat with Abx for possible UTI. - Sz precautions, and can be due to Addition for Buspirone and stopping of BZDs and rule out infectious cause. - EEG plan - Neurology consult - AXR FULL NOTE TO FOLLOW. I have discussed with admitting resident/college intern and please refer to my note and full H*P note documented by admitting team. Shira Dyer MD Hospitalist 02/21/2019 11:00 PM # [phone] Yari Lucio RN - 02/21/2019 10:38 PM ESTPatient arrived to the unit by EMS via stretcher. Patient was slid over to bed x3 assist. Vitals andFS obtained and within normal limits. Patient came with delvalle catheter in place, that was exchanged by this procedure writer. Admission navigator completed with paperwork from long-term. Patient resting comfortably at this time. documented in this encounter Plan of Treatment Name Type Priority Associated Diagnoses Date/Time EKG 12 Lead ECG Routine 02/21/2019 10:34 PM EST EKG 12 Lead ECG Routine 02/21/2019 10:36 PM EST Name Type Priority Associated Order Schedule Diagnoses CBC and Differential Lab Routine AM Draw for 5 Occurrences starting 02/22/2019 until 02/26/2019, 3 completed Basic Metabolic Panel Lab Routine AM Draw for 5 Days starting 02/22/2019 until 02/26/2019, 3 completed POCT glucose, docked Point of Care Routine BID for 30 Days Testing-Docked starting 02/22/2019 Device until 03/23/2019, 2 completed Health Maintenance Due Date Last Done Comments Hepatitis C Screening (B. 1945 0613-1065) MMR Vaccines (1 of 1 - Standard 1946 series) Varicella Vaccines (1 of 2 - 1946 2-dose childhood series) DTaP,Tdap,and Td Vaccines (1 - 01/29/1952 Tdap) Colon Cancer Screening 10 yrs 1995 Zoster Vaccines (1 of 2) 1995 Pneumococcal Vaccine: 65+ Years (1 2010 of 2 - PCV13) Influenza Vaccine 12/03/2018 HIB Vaccines Aged Out No longer eligible based on patient's age to complete this topic Hepatitis A Vaccines Aged Out No longer eligible based on patient's age to complete this topic Hepatitis B Vaccines Aged Out No longer eligible based on patient's age to complete this topic IPV Vaccines Aged Out No longer eligible based on patient's age to complete this topic Pneumococcal Vaccine: Pediatrics Aged Out No longer eligible based on (0 to 5 Years) and At-Risk patient's age to complete this Patients (6 to 64 Years) topic documented as of this encounter Procedures Procedure Name Priority Date/Time Associated Comments Diagnosis POCT GLUCOSE, DOCKED Routine 02/25/2019 8:50 Results for this AM EST procedure are in the results section. CBC AND DIFFERENTIAL Routine 02/25/2019 4:17 Results for this AM EST procedure are in the results section. BASIC METABOLIC PANEL Routine 02/25/2019 4:17 Results for this AM EST procedure are in the results section. EEG ROUTINE STUDY Routine 02/24/2019 9:05 Results for this PM EST procedure are in the results section. POCT GLUCOSE, DOCKED Routine 02/24/2019 6:06 Results for this PM EST procedure are in the results section. CBC AND DIFFERENTIAL Routine 02/24/2019 3:29 Results for this AM EST procedure are in the results section. BASIC METABOLIC PANEL Routine 02/24/2019 3:29 Results for this AM EST procedure are in the results section. MR BRAIN WITHOUT Routine 02/23/2019 1:24 Results for this CONTRAST 94169 AM EST procedure are in the results section. POCT GLUCOSE, DOCKED Routine 02/22/2019 1:39 Results for this PM EST procedure are in the results section. POCT GLUCOSE, DOCKED Routine 02/22/2019 9:00 Results for this AM EST procedure are in the results section. URINALYSIS WITH REFLEX Routine 02/22/2019 2:57 Results for this URINE CULTURE AM EST procedure are in the results section. URINE CULTURE Routine 02/22/2019 2:57 Results for this AM EST procedure are in the results section. CBC AND DIFFERENTIAL Routine 02/22/2019 2:55 Results for this AM EST procedure are in the results section. BASIC METABOLIC PANEL Routine 02/22/2019 2:55 Results for this AM EST procedure are in the results section. XR ABDOMEN AP ABD Routine 02/22/2019 2:26 Results for this SUPINE ONLY [id number] AM EST procedure are in the results section. CBC AND DIFFERENTIAL Routine 02/21/2019 10:54 Results for this PM EST procedure are in the results section. C-REACTIVE PROTEIN Routine 02/21/2019 10:54 Results for this PM EST procedure are in the results section. TSH Routine 02/21/2019 10:54 Results for this PM EST procedure are in the results section. PHOSPHORUS LEVEL Routine 02/21/2019 10:54 Results for this PM EST procedure are in the results section. MAGNESIUM LEVEL Routine 02/21/2019 10:54 Results for this PM EST procedure are in the results section. LACTIC ACID LEVEL, Routine 02/21/2019 10:54 Results for this PLASMA PM EST procedure are in the results section. COMPREHENSIVE Routine 02/21/2019 10:54 Results for this METABOLIC PANEL PM EST procedure are in the results section. EKG 12-LEAD - CMAXX 02/21/2019 10:36 REPORT PM EST EKG 12-LEAD Routine 02/21/2019 10:36 PM EST Procedure Note - Interface, Received Via [employer] - 02/21/2019 10 :37 PM EST Ventricular Rate: 95 BPM Atrial Rate: 95 BPM P-R Interval: 154 ms QRS Duration: 112 ms Q-T Interval: 376 ms QTC Calculation(Bazett): 472 ms P [place]berts[place]: -13 degrees R [place]: 129 degrees T [place]: 16 degrees : POOR DATA QUALITY, INTERPRETATION MAY BE ADVERSELY : AFFECTED : SINUS RHYTHM : LOW VOLTAGE QRS : RIGHT BUNDLE BRANCH BLOCK : LEFT POSTERIOR FASCICULAR BLOCK : BIFASCICULAR BLOCK : ABNORMAL ECG : WHEN COMPARED WITH ECG OF 21-FEB-2019 22:34, (UNCONFIRMED) : NO SIGNIFICANT CHANGE WAS FOUND : THIS IS A PRELIMINARY RESULT. EKG 12-LEAD - CMAXX REPORT 02/21/2019 10:34 PM EST EKG 12-LEAD - CMAXX REPORT 02/21/2019 10:34 PM EST EKG 12-LEAD Routine 02/21/2019 10:34 PM EST Procedure Note - Interface, Received Via [employer] - 02/21/2019 10 :36 PM EST Ventricular Rate: 96 BPM Atrial Rate: 96 BPM P-R Interval: 164 ms QRS Duration: 108 ms Q-T Interval: 364 ms QTC Calculation(Bazett): 459 ms P [place]: -10 degrees R [place]ber[place]: 123 degrees T Culberts[place]: 10 degrees : SINUS RHYTHM : LOW VOLTAGE QRS : RIGHT BUNDLE BRANCH BLOCK : LEFT POSTERIOR FASCICULAR BLOCK : BIFASCICULAR BLOCK : ABNORMAL ECG : NO PREVIOUS ECGS AVAILABLE : THIS IS A PRELIMINARY RESULT. EKG 12-LEAD Routine 02/21/2019 10:34 PM EST documented in this encounter Results POCT glucose, docked (02/25/2019 8:50 AM EST) POC Glucose 94 70 - 140 mg/dL [facility] POC Specimen Whole Blood Performing Organization Address [facility] Phone Number POINT OF CARE TEST [address] [place], [place] [id number] [place] [address] POC [address] [place] [address] Basic Metabolic Panel (02/25/2019 4:17 AM EST) Bicarbonate 26 22 - 29 mmol/L [facility] Chloride 105 98 - 107 mmol/L [facility] Creatinine 0.91 0.70 - 1.20 [facility] mg/dL [facility] Glucose 84 70 - 140 mg/dL [facility] Potassium 4.2 3.4 - 5.1 mmol/L [facility] Sodium 142 136 - 145 mmol/L [facility] Blood Urea Nitrogen 17 8 - 23 mg/dL [facility] Anion Gap 11 8 - 15 mmol/L [facility] Osmolality, Shivam 295 275 - 300 [facility] mosm/kg [facility] BUN/Cre Ratio 19 [facility] Calcium 9.7 8.8 - 10.2 mg/dL [facility] GFR Non 81 >60 [facility] Maldivian 2009 CDK-EPI mL/min/1.73m2 [facility] GFR >90 >60 [facility] 2009 CKD-EPI mL/min/1.73m2 [facility] Specimen Plasma Performing Organization Address [facility] Phone Number [facility] [address] [place] [address] [facility] [address] [place] [address] Pathology CBC and Differential (02/25/2019 4:17 AM EST) White Blood Cell 9.7 4 - 10 [facility] 10*3/uL [facility] Red Blood Cell 4.18 (L) 4.6 - 6.1 [facility] 10*6/uL [facility] Hemoglobin 12.9 (L) 13.5 - 18 [facility] g/dL [facility] Hematocrit 37.7 (L) 41 - 53 % [facility] Mean Cell Volume 90.3 80 - 96 fL [facility] Mean Cell Hemoglobin 30.9 27 - 33 pg [facility] Mean Cell Hgb Conc 34.2 32.0 - 36.0 [facility] g/dL [facility] Red Cell Dist Width 12.8 11.5 - 14.5 % [facility] Platelet Count 304 150 - 400 [facility] 10*3/uL [facility] Differential Type Automated Diff [facility] Neutrophil 56 % [facility] Lymphocyte 22 % [facility] Monocyte 8 % [facility] Eosinophil 13 % [facility] Basophil 1 % [facility] Abs Neutrophil 5.45 1.8 - 7.0 [facility] 10*3/uL [facility] Abs Lymphocyte 2.09 1.2 - 4.0 [facility] 10*3/uL [facility] Abs Monocyte 0.81 (H) 0 - 0.8 [facility] 10*3/uL [facility] Abs Eosinophil 1.24 (H) 0 - 0.5 [facility] 10*3/uL [facility] Abs Basophil 0.08 0 - 0.2 [facility] 10*3/uL [facility] Nucleated Red Blood 0 0 - 0 [facility] [facility] Cells /100{WBCs} [facility] Pathology Specimen EDTA Whole Blood Performing Organization Address City/State/Zipcode Phone Number [facility] CL[facility]ICAL PATHOLOG[facility] [address] [place] [address] [facility] [address] [place] [address] Pathology EEG Routine Study (02/24/2019 9:05 PM EST) Narrative Performed At Abby Manley MD EXTERNAL NON-INTERFACED LAB 02/24/2019 9:10 PM PROCEDURE: EEG REPORT # [id number]. DATE OF PROCEDURE: February 24, 2019 HISTORY: The patient is a 74 y.o. male with a history of PD and new onset GTC. The purpose of this regular EEG is to look for evidence of epileptiform activity. No current facility-administered medications on file prior to encounter. Current Outpatient Medications on File Prior to Encounter Medication Sig Dispense Refill Amantadine HCl 50 MG/5ML Oral Syrup (SYMMETREL) Take 50 mg by mouth daily busPIRone HCl 10 MG Oral Tablet (BUSPAR) Take 10 mg by mouth Three times daily Carbidopa-Levodopa 25-100 MG Oral Tablet (SINEMET) Take 1.5 tablets by mouth Five times daily Esomeprazole Magnesium 40 MG Oral Capsule Delayed Release (NEXIUM) Take 20 mg by mouth every morning before breakfast Midodrine HCl 5 MG Oral Tablet (PROAMATINE) Take 10 mg by mouth Three Times Daily Mirtazapine 15 MG Oral Tablet (REMERON) Take 30 mg by mouth nightly Scheduled Meds: amantadine 50 mg Oral Daily busPIRone 10 mg Oral TID carbidopa-levodopa 1 tablet Oral QPM carbidopa-levodopa 2.5 tablet Oral 4x Daily enoxaparin 40 mg Subcutaneous Daily midodrine 10 mg Oral TID mirtazapine 30 mg Oral Nightly pantoprazole 40 mg Oral Two times daily before breakfast and dinner senna 2 tablet Oral Nightly Continuous Infusions: PRN Meds:.acetaminophen (TYLENOL) tablet, polyethylene glycol TECHNICAL DESCRIPTION: This digital EEG was recorded using 2 EKG and 21 scalp and/or ear electrodes. It was reviewed in referential and bipolar montages following reformatting in the 10-20 International electrode placement system. In the best awake and alert state, the background consists of a symmetric 6 Hz to 7Hz, 20 to 40 microvolt posterior dominant rhythm that attenuates with eye opening. The remainder of the background consists of generalized polymorphic theta and a symmetric waxing and waning beta discharge in the frontal leads. Drowsiness is characterized by further slowing of this background rhythm. Stage 1 sleep is characterized by symmetric vertex waves. Stage 2 sleep is characterized by symmetric sleep spindles No epileptiform abnormalities. No electrographic seizures Photic stimulation with flash frequencies of 2-21 Hz did not elicit photic driving. Activation of epileptiform abnormalities was not seen. CLINICAL IMPRESSION: This regular EEG done in the awake, drowsy and stage II sleep states, was abnormal. The abnormality was consistent with encephalopathy, as suggested by the slow waking background, Specifically, epileptiform activity was not seen. Performing Organization Address [facility] Phone Number EXTERNAL NON-INTERFACED LAB POCT glucose, docked (02/24/2019 6:06 PM EST) POC Glucose 96 70 - 140 mg/dL [facility] POC Specimen Whole Blood Performing Organization Address [facility] Phone Number POINT OF CARE TEST [address] [place], [place] [id number] [place] [address] POC [address] [place] [address] Basic Metabolic Panel (02/24/2019 3:29 AM EST) Bicarbonate 27 22 - 29 mmol/L [facility] Pathology Chloride 105 98 - 107 mmol/L [facility] Pathology Creatinine 0.90 0.70 - 1.20 [facility] mg/dL [facility] Pathology Glucose 91 70 - 140 mg/dL [facility] Pathology Potassium 4.2 3.4 - 5.1 mmol/L [facility] Pathology Sodium 143 136 - 145 mmol/L [facility] Pathology Blood Urea Nitrogen 12 8 - 23 mg/dL [facility] Pathology Anion Gap 11 8 - 15 mmol/L [facility] Pathology Osmolality, Shivam 295 275 - 300 [facility] mosm/kg [facility] Pathology BUN/Cre Ratio 13 [facility] Pathology Calcium 9.3 8.8 - 10.2 mg/dL [facility] Pathology GFR Non 82 >60 [facility] Maldivian 2009 CDK-EPI mL/min/1.73m2 [facility] Clin Pathology GFR >90 >60 [facility] 2009 CKD-EPI mL/min/1.73m2 [facility] Pathology Specimen Plasma Performing Organization Address [facility] Phone Number [facility] CL[facility]ICAL PATHOLOG[facility] [address] [place] [address] [phone] [facility] Clin [address] [place] [address] Pathology CBC and Differential (02/24/2019 3:29 AM EST) White Blood Cell 11.0 (H) 4 - 10 [facility] 10*3/uL [facility] Pathology Red Blood Cell 3.88 (L) 4.6 - 6.1 [facility] 10*6/uL [facility] Pathology Hemoglobin 12.0 (L) 13.5 - 18 [facility] g/dL [facility] Pathology Hematocrit 35.0 (L) 41 - 53 % [facility] Pathology Mean Cell Volume 90.2 80 - 96 fL [facility] Pathology Mean Cell Hemoglobin 31.0 27 - 33 pg [facility] Pathology Mean Cell Hgb Conc 34.3 32.0 - 36.0 [facility] g/dL [facility] Clin Pathology Red Cell Dist Width 13.1 11.5 - 14.5 % [facility] Pathology Platelet Count 262 150 - 400 [facility] 10*3/uL [facility] Pathology Differential Type Automated Diff [facility] Pathology Neutrophil 63 % [facility] Pathology Lymphocyte 20 % [facility] Pathology Monocyte 8 % [facility] Pathology Eosinophil 8 % [facility] Pathology Basophil 1 % [facility] Pathology Abs Neutrophil 6.99 1.8 - 7.0 [facility] 10*3/uL [facility] Pathology Abs Lymphocyte 2.16 1.2 - 4.0 [facility] 10*3/uL [facility] Pathology Abs Monocyte 0.92 (H) 0 - 0.8 [facility] 10*3/uL [facility] Pathology Abs Eosinophil 0.87 (H) 0 - 0.5 [facility] 10*3/uL [facility] Pathology Abs Basophil 0.05 0 - 0.2 [facility] 10*3/uL [facility] Pathology Nucleated Red Blood 0 0 - 0 [facility] Cells /100{WBCs} [facility] Pathology Specimen EDTA Whole Blood Performing Organization Address City/State/Zipcode Phone Number [facility] CL[facility] PATHOLOG[facility] [address] [place] [address] [phone] [facility] [address] [place] [address] Pathology MR Brain without Contrast (02/23/2019 1:24 AM EST) Specimen Impressions Performed At Impression: Diffuse volume loss and small vessel ischemic changes. No [facility] acute infarct or hemorrhage. No focal lesion or mass identified. Some artifacts as discussed above. Narrative Performed At EXAMINATION: MR BRAIN WITHOUT CONTRAST [id number] [facility] CLINICAL INDICATION: seizure workup. R/u stroke or mass lesion. As per neurology recs.. TECHNIQUE: Multiplanar and multisequence MR images of the brain were obtained IV CONTRAST: None. COMPARISON: None at the time of this dictation. FINDINGS: PATH. There are multiple foci of FLAIR hyperintensity noted in the periventricular and peripheral white matter consistent with small vessel ischemic changes. No acute infarct is evident. No ac jean claude hemorrhage identified. Artifactual hyperintensity is noted involving the right cerebral and cerebellar hemisphere on FLAIR images. There is no space- occupying lesion, mass effect or midline shift. T he ventricles and sulci dilated indicating loss. Normal flow void is present in the intracranial vessels suggesting patency. Procedure Note Interface, Received Via WebPT System - 02/23/2019 9:37 AM EST EXAMINATION: MR BRAIN WITHOUT CONTRAST [id number] CLINICAL INDICATION: seizure workup. R/u stroke or mass lesion. As per neurology recs.. TECHNIQUE: Multiplanar and multisequence MR images of the brain were obtained IV CONTRAST: None. COMPARISON: None at the time of this dictation. FINDINGS: PATH. There are multiple foci of FLAIR hyperintensity noted in the periventricular and peripheral white matter consistent with small vessel ischemic changes. No acute infarct is evident. No acute hemorrhage identified. Artifactual hyperintensity is noted involving the right cerebral and cerebellar hemisphere on FLAIR images. There is no space-occupying lesion, mass effect or midline shift. The ventricles and sulci dilated indicating loss. Normal flow void is present in the intracranial vessels suggesting patency. Impression: Diffuse volume loss and small vessel ischemic changes. No acute infarct or hemorrhage. No focal lesion or mass identified. Some artifacts as discussed above. Performing Organization Address City/State/Zipcode Phone Number [facility] [address] [place] [address] POCT glucose, docked (02/22/2019 1:39 PM EST) POC Glucose 103 70 - 140 mg/dL [facility] POC Specimen Whole Blood Performing Organization Address City/State/Zipcode Phone Number POINT OF CARE TEST [address] [place] [address] [facility] POC [address] [place] [address] POCT glucose, docked (02/22/2019 9:00 AM EST) POC Glucose 86 70 - 140 mg/dL [facility] POC Specimen Whole Blood Performing Organization Address [facility] Phone Number POINT OF CARE TEST [address] [place] [address] [facility] POC [address] [place] [address] Urine Culture ; Urine (02/22/2019 2:57 AM EST) Special Request None [facility] Pathology Culture/Results NO GROWTH [facility] Pathology Specimen Urine Performing Organization Address [facility] Phone Number [facility] PATH[facility] [address] [place] [address] [facility] [address] [place] [address] Pathology Urinalysis/Urine Culture (02/22/2019 2:57 AM EST) Color Yellow [facility] Pathology Clarity Clear [facility] Pathology Specific What Cheer 1.006 1.003 - 1.030 [facility] Pathology PH Urine 7.0 5.0 - 8.0 [facility] Pathology Total Protein UA Negative Negative mg/dL [facility] Pathology Glucose UA Negative Negative mg/dL [facility] Pathology Ketone Urine Negative Negative mg/dL [facility] Pathology Bilirubin Negative Negative [facility] Pathology Hemoglobin, Urine Negative Negative [facility] Pathology Leukocyte Esterase 3+ (A) Negative Becki/uL [facility] Pathology Nitrite Negative Negative [facility] Pathology WBC 30 (H) 0 - 5 /HPF [facility] Pathology RBC 1 0 - 3 /HPF [facility] Pathology Specimen Urine Performing Organization Address [facility] Phone Number [facility] PATHOLOG[facility] [address] [place] [address] [phone] [facility] [address] [place] [address] Pathology Basic Metabolic Panel (02/22/2019 2:55 AM EST) Bicarbonate 27 22 - 29 mmol/L [facility] Pathology Chloride 103 98 - 107 mmol/L [facility] Pathology Creatinine 0.85 0.70 - 1.20 [facility] mg/dL [facility] Pathology Glucose 84 70 - 140 mg/dL [facility] Pathology Potassium 3.6 3.4 - 5.1 mmol/L [facility] Pathology Sodium 141 136 - 145 mmol/L [facility] Pathology Blood Urea Nitrogen 13 8 - 23 mg/dL [facility] Pathology Anion Gap 11 8 - 15 mmol/L [facility] Pathology Osmolality, Shivam 291 275 - 300 [facility] mosm/kg [facility] Pathology BUN/Cre Ratio 15 [facility] Pathology Calcium 9.2 8.8 - 10.2 mg/dL [facility] Pathology GFR Non 84 >60 [facility] Maldivian 2008 CDK-EPI mL/min/1.73m2 [facility] Pathology GFR >90 >60 [facility] 2009 CKD-EPI mL/min/1.73m2 [facility] Pathology Specimen Plasma Performing Organization Address City/State/[facility] Phone Number [facility] CL[facility] PATHOLOG[facility] [address] [place] [address] [facility] [address] [place] [address] Pathology CBC and Differential (02/22/2019 2:55 AM EST) White Blood Cell 9.3 4 - 10 [facility] 10*3/uL [facility] Pathology Red Blood Cell 4.19 (L) 4.6 - 6.1 [facility] 10*6/uL [facility] Pathology Hemoglobin 12.9 (L) 13.5 - 18 [facility] g/dL [facility] Pathology Hematocrit 37.5 (L) 41 - 53 % [facility] Pathology Mean Cell Volume 89.4 80 - 96 fL [facility] Pathology Mean Cell Hemoglobin 30.9 27 - 33 pg [facility] Pathology Mean Cell Hgb Conc 34.5 32.0 - 36.0 [facility] g/dL [facility] Pathology Red Cell Dist Width 13.1 11.5 - 14.5 % [facility] Pathology Platelet Count 291 150 - 400 [facility] 10*3/uL [facility] Pathology Differential Type Automated Diff [facility] Pathology Neutrophil 63 % [facility] Pathology Lymphocyte 24 % [facility] Pathology Monocyte 9 % [facility] Pathology Eosinophil 3 % [facility] Pathology Basophil 1 % [facility] Pathology Abs Neutrophil 5.90 1.8 - 7.0 [facility] 10*3/uL [facility] Pathology Abs Lymphocyte 2.28 1.2 - 4.0 [facility] 10*3/uL [facility] Pathology Abs Monocyte 0.83 (H) 0 - 0.8 [facility] 10*3/uL [facility] Pathology Abs Eosinophil 0.26 0 - 0.5 [facility] 10*3/uL [facility] Pathology Abs Basophil 0.07 0 - 0.2 [facility] 10*3/uL [facility] Pathology Nucleated Red Blood 0 0 - 0 [facility] Cells /100{WBCs} [facility] Pathology Specimen EDTA Whole Blood Performing Organization Address City/State/Zipcode Phone Number [facility] CL[facility] PATHOLOG[facility] [address] [place] [address] [phone] [facility] [address] [place] [address] Pathology XR Abdomen AP Abd Supine Only (02/22/2019 2:26 AM EST) Specimen Narrative Performed At PROCEDURE INFORMATION: [facility] Exam: XR Abdomen, 1 View Exam date and time: 02/22/2019 2:16 AM Age: 74 years old Clinical indication: Other: Infection eval TECHNIQUE: Imaging protocol: XR of the abdomen. Views: Frontal supine view of the abdomen. 1 View. COMPARISON: No relevant prior studies available. FINDINGS: Gastrointestinal tract: Multiple gas and feces filled bowel loops. Intraperitoneal space: Surgical clips in the right upper quadrant. 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 IMPRESSION: Nonspecific bowel gas pattern THIS DOCUMENT HAS BEEN ELECTRONICALLY SIGNED BY SHANTHI JONES MD Procedure Note Interface, Received Via WebPT System - 02/22/2019 8:08 AM EST PROCEDURE INFORMATION: Exam: XR Abdomen, 1 View Exam date and time: 02/22/2019 2:16 AM Age: 74 years old Clinical indication: Other: Infection eval TECHNIQUE: Imaging protocol: XR of the abdomen. Views: Frontal supine view of the abdomen. 1 View. COMPARISON: No relevant prior studies available. FINDINGS: Gastrointestinal tract: Multiple gas and feces filled bowel loops. Intraperitoneal space: Surgical clips in the right upper quadrant. 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 IMPRESSION: Nonspecific bowel gas pattern THIS DOCUMENT HAS BEEN ELECTRONICALLY SIGNED BY SHANTHI JONES MD Performing Organization Address City/[facility]/Zipcode Phone Number [facility] [address] [place] [address] C-reactive protein (02/21/2019 10:54 PM EST) C Reactive Protein 2.6 <8.0 mg/L [facility] Pathology Specimen Plasma Performing Organization Address [facility] Phone Number [facility] [address] [place] [address] [phone] [facility] [address] [place] [address] Pathology Lactic Acid Level, Plasma (02/21/2019 10:54 PM EST) Lactic Acid 1.1 0.5 - 2.2 mmol/l [facility] Pathology Specimen Plasma Performing Organization Address [facility] Phone Number [facility] [address] [place] [address] [facility] [address] [place] [address] Pathology TSH (02/21/2019 10:54 PM EST) TSH 3.830 0.270 - 4.200 u[IU]/mL [facility] Pathology Specimen Plasma Performing Organization Address [facility] Phone Number [facility] [address] [place] [address] [facility] [address] [place] [address] Pathology CBC and Differential (02/21/2019 10:54 PM EST) White Blood Cell 10.8 (H) 4 - 10 [facility] 10*3/uL [facility] Pathology Red Blood Cell 4.19 (L) 4.6 - 6.1 [facility] 10*6/uL [facility] Pathology Hemoglobin 13.0 (L) 13.5 - 18 [facility] g/dL [facility] Pathology Hematocrit 37.4 (L) 41 - 53 % [facility] Pathology Mean Cell Volume 89.2 80 - 96 fL [facility] Pathology Mean Cell Hemoglobin 31.0 27 - 33 pg [facility] Pathology Mean Cell Hgb Conc 34.8 32.0 - 36.0 [facility] g/dL [facility] Pathology Red Cell Dist Width 12.9 11.5 - 14.5 % [facility] Pathology Platelet Count 295 150 - 400 [facility] 10*3/uL [facility] Pathology Differential Type Automated Diff [facility] Pathology Neutrophil 64 % [facility] Pathology Lymphocyte 24 % [facility] Pathology Monocyte 9 % [facility] Pathology Eosinophil 2 % [facility] Pathology Basophil 1 % [facility] Pathology Abs Neutrophil 6.87 1.8 - 7.0 [facility] 10*3/uL [facility] Pathology Abs Lymphocyte 2.61 1.2 - 4.0 [facility] 10*3/uL [facility] Pathology Abs Monocyte 1.01 (H) 0 - 0.8 [facility] 10*3/uL [facility] Pathology Abs Eosinophil 0.22 0 - 0.5 [facility] 10*3/uL [facility] Pathology Abs Basophil 0.08 0 - 0.2 [facility] 10*3/uL [facility] Pathology Nucleated Red Blood 0 0 - 0 [facility] Cells /100{WBCs} [facility] Pathology Specimen EDTA Whole Blood Performing Organization Address [facility] Phone Number [facility] PATHOLOG[facility] [address] [place] [address] [facility] [address] [place] [address] Pathology Phosphorus Level (02/21/2019 10:54 PM EST) Phosphorus 3.9 2.5 - 4.5 mg/dL [facility] Pathology Specimen Plasma Performing Organization Address City/[facility] Phone Number [facility] [address] [place] [address] [phone] [facility] [address] [place] [address] Pathology Magnesium Level (02/21/2019 10:54 PM EST) Magnesium 2.2 1.6 - 2.4 mg/dL [facility] Pathology Specimen Plasma Performing Organization Address [facility] Phone Number [facility] [address] [place] [address] [phone] [facility] [address] [place] [address] Pathology Comprehensive Metabolic Panel (02/21/2019 10:54 PM EST) Albumin 3.8 3.5 - 5.2 g/dL [facility] Pathology Bilirubin, Total 1.0 <1.2 mg/dL [facility] Pathology Calcium 9.1 8.8 - 10.2 mg/dL [facility] Pathology Chloride 102 98 - 107 mmol/L [facility] Pathology Creatinine 0.83 0.70 - 1.20 [facility] mg/dL [facility] Pathology Glucose 87 70 - 140 mg/dL [facility] Pathology Alkaline Phosphatase 94 40 - 129 U/L [facility] Pathology Potassium 3.8 3.4 - 5.1 mmol/L [facility] Pathology Total Protein 6.6 6.4 - 8.3 g/dL [facility] Pathology Sodium 138 136 - 145 mmol/L [facility] Pathology AST/SGO 20 <40 U/L [facility] Pathology Blood Urea Nitrogen 14 8 - 23 mg/dL [facility] Pathology Osmolality, Shivam 286 275 - 300 [facility] mosm/kg [facility] Pathology BUN/Cre Ratio 17 [facility] Pathology Bicarbonate 25 22 - 29 mmol/L [facility] Pathology ALT/SGP 26 <41 U/L [facility] Pathology Anion Gap 11 8 - 15 mmol/L [facility] Pathology A/G Ratio 1.4 [facility] Pathology GFR Non 85 >60 [facility] Maldivian 2009 CDK-EPI mL/min/1.73m2 [facility] Pathology GFR >90 >60 [facility] 2009 CKD-EPI mL/min/1.73m2 [facility] Pathology Specimen Plasma Performing Organization Address City/State/Zipcode Phone Number [facility] [address] [place] [address] [phone] [facility] [address] [place] [address] Pathology EKG 12-LEAD - CMAXX REPORT (02/21/2019 10:36 PM EST) Narrative Performed At EKG 12-LEAD - CMAXX REPORT (02/21/2019 10:34 PM EST) Narrative Performed At EKG 12-LEAD - CMAXX REPORT (02/21/2019 10:34 PM EST) Narrative Performed At EKG 12 Lead (02/21/2019 10:34 PM EST) Specimen Narrative Performed At Ventricular Rate: [facility] EKG 96 BPM Atrial Rate: 96 BPM P-R Interval: 164 ms QRS Duration: 108 ms Q-T Interval: 364 ms QTC Calculation(Bazett): 459 ms P [place]ber[place]: -10 degrees R [place]: 123 degrees T [place]: 10 degrees : SINUS RHYTHM : LOW VOLTAGE QRS : RIGHT BUNDLE BRANCH BLOCK : LEFT POSTERIOR FASCICULAR BLOCK : BIFASCICULAR BLOCK : ABNORMAL ECG : NO PREVIOUS ECGS AVAILABLE : Confirmed by Pedro Basilio ([id number]) on 02/23/2019 10:22:36 AM Procedure Note Interface, Received Via [facility] - 02/23/2019 10:22 AM EST Ventricular Rate: 96 BPM Atrial Rate: 96 BPM P-R Interval: 164 ms QRS Duration: 108 ms Q-T Interval: 364 ms QTC Calculation(Bazett): 459 ms P [place]: -10 degrees R [place]: 123 degrees T [place]: 10 degrees : SINUS RHYTHM : LOW VOLTAGE QRS : RIGHT BUNDLE BRANCH BLOCK : LEFT POSTERIOR FASCICULAR BLOCK : BIFASCICULAR BLOCK : ABNORMAL ECG : NO PREVIOUS ECGS AVAILABLE : Confirmed by Pedro Basilio ([id number]) on 02/23/2019 10:22:36 AM Performing Organization Address City/State/Zipcode Phone Number FORMERLY [facility], [facility] EKG documented in this encounter Visit Diagnoses Diagnosis Seizure - Primary Other convulsions Autism Autistic disorder, current or active state Parkinson disease Paralysis agitans Chronic indwelling Delvalle catheter Other postprocedural status Hypovolemia documented in this encounter Administered Medications Medication Order MAR Action Action Date Dose Rate Site acetaminophen (TYLENOL) tablet Given 02/25/2019 9:07 AM EST 650 mg 650 mg 650 mg, Oral, Every 6 hours PRN, Mild Pain (Pain Scale Score 1-3), Starting Sun02/21/19 at 2106, For 30 days, Maximum daily dose of acetaminophen is 3,000 mg from all sources in 24 hours., amantadine (SYMMETREL) solution 50 mg Given 02/25/2019 9:08 AM EST 50 mg 50 mg, Oral, Daily Standard, First dose on 02/22/19 at 0900, For 30 days Given 02/24/2019 8:16 AM EST 50 mg Given 02/23/2019 9:25 AM EST 50 mg busPIRone (BUSPAR) tablet 10 mg Given 02/25/2019 2:47 PM EST 10 mg 10 mg, Oral, Three Times Daily Standard, First dose on 02/22/19 at 0130, For 5 days Given 02/25/2019 6:28 AM EST 10 mg Given 02/24/2019 8:57 PM EST 10 mg carbidopa-levodopa (SINEMET CR) 50-200 MG Given 02/24/2019 8:58 PM EST 1 tablet per tablet 1 tablet 1 tablet, Oral, Every evening, First dose on 02/22/19 at 2100, For 30 days, Do not crush or chew, Given 02/23/2019 9:43 PM EST 1 tablet Given 02/22/2019 9:10 PM EST 1 tablet carbidopa-levodopa (SINEMET) 25-100 MG Given 02/25/2019 2:46 PM EST 2.5 tablets per tablet 2.5 tablet 2.5 tablet, Oral, Four Times Daily Standard, First dose (after last modification) on 02/22/19 at 1300, For 10 days, The administration hours are : 7 am; 10 am; 1 pm; 4 pm; 7 pm., Given 02/25/2019 9:06 AM EST 2.5 tablets Given 02/24/2019 8:58 PM EST 2.5 tablets enoxaparin sodium (LOVENOX) injection 40 mg Given 02/25/2019 9:08 AM EST 40 mg 40 mg, Subcutaneous, Daily Standard, First dose on 02/22/19 at 0900, For 30 days Given 02/24/2019 8:18 AM EST 40 mg midodrine (PROAMATINE) tablet 10 mg Given 02/25/2019 2:47 PM EST 10 mg 10 mg, Oral, Three Times Daily - Midodrine, First dose on 02/22/19 at 0900, For 30 days Given 02/25/2019 9:07 AM EST 10 mg Given 02/24/2019 5:07 PM EST 10 mg mirtazapine (REMERON) tablet 30 mg Given 02/24/2019 8:58 PM EST 30 mg 30 mg, Oral, Nightly, First dose on Sun02/21/19 at 2200, For 30 days Given 02/23/2019 9:42 PM EST 30 mg Given 02/22/2019 9:09 PM EST 30 mg pantoprazole (PROTONIX) EC tablet 40 mg Given 02/25/2019 6:30 AM EST 40 mg 40 mg, Oral, Two times daily before breakfast and dinner, First dose on 02/22/19 at 0730, For 30 days, Do not crush or chew Therapeutic substitution for esomeprazole per policy., Given 02/24/2019 5:07 PM EST 40 mg Given 02/24/2019 8:18 AM EST 40 mg senna 8.6 MG 2 tablet Given 02/24/2019 8:58 PM EST 2 tablets 2 tablet, Oral, Nightly, First dose on Sun02/21/19 at 2200, For 30 days Given 02/23/2019 9:42 PM EST 2 tablets Given 02/22/2019 9:06 PM EST 2 tablets Medication Order MAR Action Action Date Dose Rate Site bisacodyl (DULCOLAX) suppository Given 02/22/2019 9:11 AM EST 10 mg 10 mg 10 mg, Rectal, Once, 02/22/19 at 0800, For 1 dose carbidopa-levodopa (SINEMET) 25-100 MG Given 02/22/2019 9:12 AM EST 1.5 tablets per tablet 1.5 tablet 1.5 tablet, Oral, Five Times Daily Standard, First dose on 02/22/19 at 0700, For 30 days, The administration hours are : 7 am; 10 am; 1 pm; 4 pm; 7 pm., cefTRIAXone (ROCEPHIN) infusion 1 g New Bag 02/21/2019 11:22 PM EST 1 g 100 mL/hr (premix) 1 g, Intravenous, at 100 mL/hr, Every 24 hours, First dose on 02/22/19 at 0000, For 3 days, (patient already received one dose in [place] on 02/21/2019), Discouraged Uses: Empiric treatment of post-surgical meningitis (ceftazidime preferred), LORazepam (ATIVAN) injection Given by IV push 02/22/2019 11:37 PM EST 0.26 mg 0.26 mg 0.26 mg (rounded from 0.25 mg), Intravenous, Once, 02/22/19 at 2330, For 1 dose, Prior to MRI, LORazepam (ATIVAN) injection 0.26 mg New Bag 02/22/2019 11:58 PM EST 0.26 mg 0.26 mg (rounded from 0.25 mg), Intravenous, Once, [place] 02/23/19 at 0000, For 1 dose NaCl infusion 0.9 % New Bag 02/23/2019 6:38 AM EST 75 mL/hr at 75 mL/hr, Intravenous, Continuous, Starting Sun02/21/19 at 2130, For 1 day 18 hours New Bag 02/22/2019 3:47 PM EST 75 mL/hr New Bag 02/21/2019 11:14 PM EST 75 mL/hr piperacillin-tazobactam (ZOSYN) New Bag 02/24/2019 10:51 AM 3.375 g 12.5 mL /hr IVPB 3.375 g (premix) EST 3.375 g, Intravenous, Administer over 4 Hours, Every 8 hours, First dose on 02/22/19 at 1030, For 5 days New Bag 02/24/2019 2:13 AM EST 3.375 g 12.5 mL/hr New Bag 02/23/2019 5:52 PM EST 3.375 g 12.5 mL/hr documented in this encounter
--- OUTSIDE RECORDS SUMMARY | 2019-04-12 14:32 | XMS REPORT | Continuity of Care Document ---
:1945 External Reference #:[id number] Author Name Sid Torres MD Address [address] [place] [address] Care Team Providers Name Role Phone Ethan Nuñez NP - Nurse Care Team Information Aquarium Tank Attendant Practitioner Noe Hawk PA - Physician Care Team Information Aquarium Tank Attendant [phone] Data Communications Analyst Nafisa Hanley, PNP-BC, COMPANY TRUCK DRIVER, Ibclc Care Team Information Aquarium Tank Attendant [phone] - Family Problems Active Problems Provider Date Active infantile autism Yolanda Whitehead, MANAGER LAUNDRY Onset: 03/17/2011 Chronic obstructive lung disease Yolanda Whitehead, LYRIC Onset: 03/17/2011 Cataract Yolanda Whitehead, MANAGER LAUNDRY Onset: 03/17/2011 Chronic hypotension Erinn Ordaz M.D. [...] Unknown Never Smoked Cigarettes Smoking Status Reviewed: 02/19/19 Never Smoked Cigarettes ETOH Use Never used [...] Kit decreased function. Please include a 16 Haitian catheter Catheter Flush Flush delvalle once a [...] K21.9 Nafisa Hanley, 2018 Sprinkled In PNP-BC, COMPANY TRUCK DRIVER, 20mg Capsules DR Liquids By Mouth 2 Ibclc Times A Day -DO Not Crush Or Chew- Mirtazapine take one tablet by F50.89 Ronald, 09/30/2018 30mg Tablets mouth every night MD Rena for insomnia Ken Urine Drainage change bag as 4units Irma, 08/26/2018 Bag/2000ML needed or once a [facility] Amantadine HCL Take 5ML (50MG) 150units G20 Nafisa Hanley, 06/18/2018 50mg/5ML By Mouth Daily + + PNP-BC, COMPANY TRUCK [employer]IVER, Syrup Lot: Exp: Ibclc Alprazolam 1 tab [...] Nafisa Hanley, 10/25/2017 Bandage/Clips jonah bandage PNP-BC, COMPANY TRUCK DRIVER, BNDG 3" Ibclc Misc Pseudoephedrine HCL take [...] Suspension Mylanta 1 tbsp Q4H prn Unknown [phone]/5ML Upset Stomach Suspension Midodrine HCL take one tablet by 270tabs Sid Torres, 10mg mouth three times MD Tablets a day Lupron Depot (6-Month) 1 injection every Unknown 6 months for 2 45mg Kit years Carbidopa-Levodopa 1 &1/2 tab by Unknown mouth five times a 25-100mg Tablets day History Medications Keflex 1 by mouth once [...] CPT Code Status Date Vaccine Lot # [id number] Given 12/13/2017 Influenza High Dose [id number] 13306 Given 12/13/2016 Influenza High Dose [id number] 54333 Given 06/21/2016 Tdap injection [id number] 70937 Given 06/21/2016 Pneumococcal Conjugate Vaccine 13 Valent For [id number] Intramuscular Use Q2038 Given 12/06/2015 Influenza Vaccine (Fluzone) Age 3 And Older [id number] Q2038 Given 01/08/2015 Influenza Vaccine (Fluzone) Age 3 And Older 08697 Given 02/05/2014 flu vaccination 29756 Given 01/01/2012 Pneumovax Injection 76232 Given 01/01/2012 flu vaccination 24203 Given 11/28/2010 flu vaccination 56013 Given 12/28/2009 flu vaccination 01044 Given 02/16/2009 flu vaccination 97785 Given 02/16/2009 H1N1 Immuniation Adminstration 88564 Given 12/11/2008 Hepatitis B Ofelia Adoles For Intramuscular Use 45919 Given 07/31/2008 Hepatitis B Ofelia Adoles For Intramuscular Use 25829 Given 06/11/2008 Hepatitis B Ofelia Adoles For Intramuscular Use Vital Signs Date Vital Result Comment 02/19/2019 9:50am BP Systolic Sitting Left Arm 112 mmHg BP Diastolic Sitting Left Arm 60 mmHg Respiratory Rate 18 /min 02/12/2019 1:36pm BP Systolic Sitting Left Arm 103 mmHg BP Diastolic Sitting Left Arm 67 mmHg Body Temperature 96.1 F Heart Rate 85 /min Results Test Acquired Date Facility Test Result H/L Range Note Urine 01/22/2019 [facility] Urine ESCHERICHIA Abnormal [address] [place] [address] [phone] Quantity > 100,000 CFU/mL 2 Urine Culture MIXED URETHRAL F <SEE NOTE> 3 Quantity > 100,000 CFU/mL 4 Ua RFX Micro & Culture 01/22/2019 [facility] Urine Color Yellow Yellow II [address] [place] [address] [phone] Urine Clarity Slightly Cloudy Clear Urine Glucose - Dipstick NEGATIVE mg/dL Negative Urine Bilirubin - Dipstick NEGATIVE Negative Urine Ketone NEGATIVE mg/dL Negative Urine Specific [place] 1.018 Normal 1.010-1.030 Urine Blood SMALL Abnormal [...] STRAIGHT <SEE NOTE> 5 Culture If 01/22/2019 [facility] Culture If CULTURE TO 6 Indicated Comment [address] Indicated Comment FOLLO <[place] [address] NOTE> [phone] Source: URINE, STRAIGHT <SEE NOTE> 7 Escherichia Coli 01/22/2019 [facility] Nitrofurantoin <=[address] [place] [address] [phone] Trimethoprim/Sulfamethoxazole >=320 Resistant Ampicillin >=32 Resistant Cefazolin <=4 Susceptible Ampicillin/Sulbactam 16 Intermediate Ciprofloxacin >=4 Resistant Piperacillin/Tazobactam <=4 Susceptible Ceftazidime <=1 Susceptible Ceftriaxone <=1 Susceptible Cefepime <=1 Susceptible Levofloxacin >=8 Resistant Imipenem <=0.25 Susceptible Gentamicin <=1 Susceptible Tobramycin <=1 Susceptible Laboratory test 01/22/2019 [facility] Prostate 1.23 ng/mL < 4.0 8, [address] [place] [address] Antigen [phone] Testosterone,Serum 21 ng/dL Low 264-916 10 Calcium 9.3 mg/dL Normal 8.5-10.1 Blood Culture 12/26/2018 [facility] Blood Culture NO GROWTH: 11, [address] Aerobic FINAL <[place] [address] NOTE> [phone] Blood Culture Anaerobic NO GROWTH: FINAL <SEE NOTE> 13 CBC W/Automated 12/26/2018 [facility] White Blood 9.7 K/uL Normal 3.4-10.[address] Count [place], [place] [id number] [phone] Red Blood Count 4.94 M/uL Normal 4.20-5.80 [...] 33.0-73.0 Lymph % 21.2 % Normal 20.0-42.0 [place] % 7.3 % Normal 0.0-10.0 Eo% 6.7 % High 0.0-6.6 Bas% 0.7 % Normal 0.0-1.1 Immature Grans 0.3 % Normal 0.0-5.0 NRBC % 0.0 /100WBC < 10/ 100 WBC Neut# 6.18 K/uL Normal 1.8-7.0 Lymph # 2.05 K/uL Normal 1.0-4.0 [place] # 0.71 K/uL Normal 0.0-0.8 Eos # 0.65 K/uL High 0.0-0.5 Baso # 0.07 K/uL Normal 0.0-0.1 Immature Grans Absolute 0.03 K/uL NRBC # 0.00 K/uL [facility] 12/26/2018 [facility] Glucose 92 mg/dL Normal 74-106 Metabolic Panel [address] [place] [address] [phone] BUN 15 mg/dL Normal 7-18 Creatinine 0.9 [...] Phosphatase 130 U/L High 45-117 Laboratory 12/26/2018 [facility] C-Reactive 4.14 <3.0 test finding [address] Protein,Cardiac mg/[place] [address] [phone] Ast-GN67 12/25/2018 [facility] Nitrofurantoin <=16 Susceptible [address] [place], [place] [address] [phone] Trimethoprim/Sulfamethoxazole >=320 Resistant Ampicillin >=32 Resistant Cefazolin <=4 Susceptible Ampicillin/Sulbactam 16 Intermediate Ciprofloxacin >=4 Resistant Piperacillin/Tazobactam <=4 Susceptible Ceftazidime <=1 Susceptible Ceftriaxone <=1 Susceptible Cefepime <=1 Susceptible Levofloxacin >=8 Resistant Imipenem <=0.25 Susceptible Gentamicin <=1 Susceptible Tobramycin <=1 Susceptible Culture If 12/25/2018 [facility] Culture If CULTURE TO 15 Indicated Comment [address] Indicated Comment FOLLO <[place] [address] NOTE> [phone] Source: URINE, CLEAN CAT <SEE NOTE> 16 Ua RFX Micro & 12/25/2018 [facility] Urine Color Light-Yellow Yellow Culture II [address] [place] [address] [phone] Urine Clarity Clear Clear Urine Glucose - Dipstick NEGATIVE mg/dL Negative Urine Bilirubin - Dipstick NEGATIVE Negative Urine Ketone NEGATIVE mg/dL Negative Urine Specific [place] 1.005 Low 1.010-1.030 Urine Blood SMALL Abnormal [...] CAT <SEE NOTE> 17 Urine Culture 12/25/2018 [facility] Urine ESCHERICHIA COLI Abnormal [address] [place] [address] [phone] Quantity > 100,000 CFU/mL 19 Urine Culture 09/30/2018 [facility] Urine ESCHERICHIA COLI Abnormal [address] [place] [address] [phone] Quantity > 100,000 CFU/mL 21 Ast-GN67 09/30/2018 [facility] Nitrofurantoin <=[address] [place] [address] [phone] Trimethoprim/Sulfamethoxazole >=320 Resistant Ampicillin >=32 Resistant Cefazolin [...] 7 URINE, STRAIGHT CATHETHER 8 C61 C61 N21.491V 9 THIS ASSAY IS NOT INTENDED A CANCER SCREENING TEST The concentration of PSA in a given specimen, determined with assays from different manufacturers, can vary due to differences in assay methods and reagent specificity. Values obtained from different assay methods cannot be used interchangeably. Method: Siemens Dimension [place] Chemiluminescent immunoassay. 10 Adult male reference interval is based on a population of healthy nonobese males (BMI <30) between 19 and 39 years old. Dara et.al. JCEM 2017,102;0554-5416. PMID: [id number]. Performed at: RN - [facility] [address] [id number] Physical Design Engineer: Heidi Owens MD, Phone: [phone] 11 t83.518a 12 NO GROWTH: FINAL REPORT 13 NO [...] 100,000 CFU/mL Procedures Date Code Description Status 02/19/2019 17727 EKG-Tracing And Report Completed 01/22/2019 95714 Insert Of Temporary Indwelling Bladder Catheter,Simple Completed 12/30/2018 24536 Trim Nondystrophic Nails Completed 12/25/2018 84999 Insert Of Temporary Indwelling Bladder Catheter,Simple Completed 11/25/2018 93816 Cystourethroscopy W/ Biopsy Completed 10/21/2018 51215 Insert Of Temporary Indwelling Bladder Catheter,Simple Completed 09/30/2018 21593 Insert Of Temporary Indwelling Bladder Catheter,Simple Completed 09/21/2018 80837 EKG Interpretation And Report Only Completed 09/11/2018 17537 Insert Of Temporary Indwelling Bladder Catheter,Simple Completed 10/06/2016 02609315 Colonoscopy Completed Medical Devices Description No Information Available Encounters Type Date Location Provider Dx Diagnosis Office Visit 02/19/2019 Cardiology Office Sid Torres MD I95.1 Orthostatic 10:00a hypotension R94.31 Abnormal electrocardiogram [ECG] [EKG] Office [...] specified Office Visit 01/08/2019 2:45p Physical Medicine MonicaTeresai, T83.511D I/ I react d/t & Infectious M.D. 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/o behavrl disturb R33.8 Other retention of urine N32.3 Diverticulum of bladder Office Visit 12/30/2018 2:45p Podiatry Office Luis, I70.203 Unsp athscl [place] Edi, DPM arteries of extremities, bilateral legs M20.5x1 Other deformities of toe(s) (acquired), right foot Office Visit 12/23/2018 2:45p Physical Medicine MonicaTeresai, T83.518A I/ I react d/t & Infectious [...] unspecified Office Visit 09/30/2018 12:00p Urology Noe Hawk C61 Malignant neoplasm of PA prostate R33.9 Retention of urine, unspecified Office Visit 09/16/2018 8:30a Family Medicine Rena Cardenas, G20 Parkinson's Stephen HUNTER MD disease F02.80 Dementia in oth diseases classd elswhr w/o behavrl disturb F84.0 Autistic disorder C61 Malignant neoplasm of prostate R33.9 Retention of urine, unspecified Office Visit 09/11/2018 3:30p Urology Noe Hawk R33.9 Retention of MARILU Paul urine, unspecified Office Visit 09/02/2018 11:00a Family Medicine Clune, N39.[address] Ethan, infection, site COMPANY TRUCK DRIVER not specified R33.9 Retention of urine, unspecified Assessments Date Code Description Provider 02/19/2019 I95.1 Orthostatic hypotension Sid Torres MD 02/19/2019 R94.31 Electrocardiogram abnormal Sid Torres MD 02/12/2019 B96.20 Unspecified Escherichia coli [EMayte Santana [...] encounter 01/08/2019 B96.20 Unspecified Escherichia coli [E. Mayte Anderson M.D. coli] as the cause of diseases classified elsewhere 01/08/2019 G20 Parkinson's disease Mayte Anderson M.D. 01/08/2019 C61 Malignant neoplasm of prostate Mayte Anderson M.D. 01/08/2019 F02.80 Dementia in other diseases classified Mayte Anderson M.D. elsewhere without beha 01/08/2019 R33.8 Other retention of urine Mayte Anderson M.D. 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 12/30/2018 I70.203 Unspecified atherosclerosis of [place] Edi Smith DPM arteries of extremities, bilateral [...] Retention of urine, unspecified Noe Hawk PA 09/23/2018 N39.0 Urinary tract infection, site not Roder, Isidra, MANAGER LAUNDRY specified 09/23/2018 R10.30 Lower abdominal pain, unspecified Roder, Isidra, MANAGER LAUNDRY 09/23/2018 F79 Unspecified intellectual disabilities Roder, Isidra, MANAGER LAUNDRY 09/23/2018 R33.9 Retention of urine, unspecified Roder, Isidra, MANAGER LAUNDRY 09/22/2018 N39.0 Urinary tract infection, site not Roder, Isidra, MANAGER LAUNDRY specified 09/22/2018 R10.30 Lower abdominal pain, unspecified Roder, Isidra, MANAGER LAUNDRY 09/22/2018 F79 Unspecified intellectual disabilities Roder, Isidra, MANAGER LAUNDRY 09/22/2018 R33.9 Retention of urine, unspecified Roder, Isidra, MANAGER LAUNDRY 09/21/2018 R94.31 Abnormal electrocardiogram [ECG] Alvaro Pereyra M.D. , [EKG] [facility] 09/21/2018 N39.0 Urinary tract infection, site not Roder, Isidra, MANAGER LAUNDRY specified 09/21/2018 I45.10 Unspecified right bundle-branch block Alvaro Pereyra M.D., [facility] 09/21/2018 R10.30 Lower abdominal pain, unspecified Roder, Isidra, MANAGER LAUNDRY 09/21/2018 F79 Unspecified intellectual disabilities Roder, Isidra, MANAGER LAUNDRY 09/21/2018 R33.9 Retention of urine, unspecified Roder, Isidra, MANAGER LAUNDRY 09/20/2018 N39.0 Urinary tract infection, site not Edison Kasper MD specified 09/20/2018 R10.30 Lower abdominal pain, unspecified Edison Kasper MD 09/20/2018 G20 Parkinson's disease Edison Kasper MD 09/20/2018 F79 Unspecified intellectual disabilities Edison Kaspre MD 09/16/2018 G20 Parkinson's disease Rena Cardenas [...] Retention of urine, unspecified Ethan Nuñez FNP Plan of Treatment Future Appointment(s):02/24/2020 9:00 am - Sid Torres MD at Cardiology Klymbp4806/16/2019 8:30 am - Rena Cardenas MD at [facility] RD2019 8:40 am - Edi Smith DPM at Podiatry Prisnm5907/10/2018 - Noe Hawk, PAC61 Malignant neoplasm of prostateNew Labs:Prostate Specific Antigen , Ordered: 07/10/18Testosterone,Serum, Ordered: 07/10/18Comments:I reviewed the second attendant as well as the residential nurse his prostate cancer treatment plan. I discontinued Casodex. His PSA is still 1.16 with a castrate testosterone. Continue DVT and coldCasodex currently. We'll consider treatment options once PSA and testosterone repeated in 1 month'glittC80.0 Urinary tract infection, site not specifiedComments:Cipro elixir faxed to pharmacy. Today's catheterized urine sent for culture and sensitivity Benicarhim prophylactically until the culture ginhidkD30.9 Retention of urine, unspecifiedComments:The patient was catheterized with an 8 Haitian catheter easily. He had a slight distal [...] Currently E-Coli and MRSA Closed 2018 [address] [place] [address] [phone] Edi Smith DPM Scheduled 02/17/2019 [address] [place] [address] [phone]
--- OUTSIDE RECORDS SUMMARY | 2019-04-12 14:32 | XMS REPORT | Continuity of Care Document ---
:1945 External Reference #:[id number] Author Name Hernandez López MD Address [address] [place] [address] Care Team Providers Name Role Phone Ethan Nuñez NP - Nurse Care Team Information Trigonometry Teacher [phone] Practitioner Noe Hawk PA - Physician Care Team Information Trigonometry Teacher [phone] Cashier Credit Nafisa Hanley, PNP-BC, RESEARCH FELLOW, Ibclc Care Team Information Trigonometry Teacher [phone] - Family Problems Active Problems Provider Date Active infantile autism Yolanda Whitehead, LYRIC Onset: 03/17/2011 Chronic obstructive lung disease Yolanda Whitehead, LYRIC Onset: 03/17/2011 Cataract Yolanda Whitehead, SUPPLY CHAIN ASSISTANT Onset: 03/17/2011 Chronic hypotension Erinn Ordaz M.D. [...] Unknown Never Smoked Cigarettes Smoking Status Reviewed: 03/13/19 Never Smoked Cigarettes ETOH Use Never used alcohol Tobacco Use Start: Unknown Patient has never smoked Allergies, Adverse Reactions, Alerts Description No Known Drug Allergies Medications Active Medications SIG Qnty Indications Ordering Date Provider OT Evaluation G20 Hernandez López, 03/13/2019 Fully Electric Super bed deck travel Ronald, 01/27/2019 Low Hosp. Bed 36"X 80" range 7" to 30" MD Rena footboard attend. control and hand pendant control mobility on demand foot brakes foam , pressure reduction Catheter Insertion as needed monthly 6units Irma, 01/22/2019 Tray and is needed with [facility] Kit decreased function. Please include a 16 Kyrgyz catheter Catheter Flush Flush delvalle once a [...] K21.9 Nafisa Hanley, 2018 Sprinkled In PNP-BC, RESEARCH FELLOW, 20mg Capsules DR Liquids By Mouth 2 Ibclc Times A Day -DO Not Crush Or Chew- Mirtazapine take one tablet by F50.89 Ronald, 09/30/2018 30mg Tablets mouth every night MD Rena for insomnia Ken Urine Drainage change bag as 4units Irma, 08/26/2018 Bag/2000ML needed or once a [facility] week Amantadine HCL Take 5ML (50MG) 150units G20 Nafisa Hanley, 06/18/2018 50mg/5ML By Mouth Daily + + PNP-BC, RESEARCH FELLOW, Syrup Lot: Exp: Ibclc Alprazolam 1 tab [...] Nafisa Hanley, 10/25/2017 Bandage/Clips jonah bandage PNP-BC, RESEARCH FELLOW, BNDG 3" Ibclc Misc Pseudoephedrine HCL take [...] Suspension Mylanta 1 tbsp Q4H prn Unknown [id number]/5ML Upset Stomach Suspension Midodrine HCL take one [...] mouth once 1caps Lj Solis, 11/25/2018 - Unknown 500mg given in office M.D. Capsules before procedure Bactrim DS 800-160 take last pill today Rena Cardenas MD 11/18/2018 - 11/25/2018 Wheel Chair Dx: [id number] Hernandez López MD 11/12/2018 - 01/27/2019 Immunizations CPT Code Status Date Vaccine Lot # [id number] Given 12/13/2017 Influenza High Dose [id number] 17173 Given 12/13/2016 Influenza High Dose [id number] 49737 Given 06/21/2016 Tdap injection [id number] 69163 Given 06/21/2016 Pneumococcal Conjugate Vaccine 13 Valent For [id number] Intramuscular Use Q2038 Given 12/06/2015 Influenza Vaccine (Fluzone) Age 3 And Older [id number] Q2038 Given 01/08/2015 Influenza Vaccine (Fluzone) Age 3 And Older 69862 Given 02/05/2014 flu vaccination 53860 Given 01/01/2012 Pneumovax Injection 23627 Given 01/01/2012 flu vaccination 79477 Given 11/28/2010 flu vaccination 11540 Given 12/28/2009 flu vaccination 14547 Given 02/16/2009 flu vaccination 20580 Given 02/16/2009 H1N1 Immuniation Adminstration 26803 Given 12/11/2008 Hepatitis B Ofelia Adoles For Intramuscular Use 88253 Given 07/31/2008 Hepatitis B Ofelia Adoles For Intramuscular Use 55017 Given 06/11/2008 Hepatitis B Ofelia Adoles For Intramuscular Use Vital Signs Date Vital Result Comment 03/13/2019 9:09am BP Systolic 120 mmHg BP Diastolic 78 mmHg Body Temperature 97.6 F Heart Rate 67 /min Respiratory Rate 18 /min 02/19/2019 9:50am BP Systolic Sitting Left Arm 112 mmHg BP Diastolic Sitting Left Arm 60 mmHg Respiratory Rate 18 /min Results Test Acquired Date Facility Test Result H/L Range Note Urine 01/22/2019 [facility] Urine ESCHERICHIA Abnormal 1 Culture [address] [facility] [place] [address] [phone] Quantity > 100,000 CFU/mL 2 Urine Culture MIXED URETHRAL F <SEE NOTE> 3 Quantity > 100,000 CFU/mL 4 Ua RFX Micro & Culture 01/22/2019 [facility] Urine Color Yellow Yellow II [address] [place] [address] [phone] Urine Clarity Slightly Cloudy Clear Urine Glucose - Dipstick NEGATIVE mg/dL Negative Urine Bilirubin - Dipstick NEGATIVE Negative Urine Ketone NEGATIVE mg/dL Negative Urine Specific Norman 1.018 Normal 1.010-1.030 Urine Blood SMALL Abnormal [...] STRAIGHT <SEE NOTE> 5 Culture If 01/22/2019 [facility] Culture If CULTURE TO 6 Indicated Comment [address] Indicated Comment FOLLO <[place] [address] NOTE> [phone] Source: URINE, STRAIGHT <SEE NOTE> 7 Escherichia Coli 01/22/2019 [facility] Nitrofurantoin <=[address] [place] [address] [phone] Trimethoprim/Sulfamethoxazole >=320 Resistant Ampicillin >=32 Resistant Cefazolin <=4 Susceptible Ampicillin/Sulbactam 16 Intermediate Ciprofloxacin >=4 Resistant Piperacillin/Tazobactam <=4 Susceptible Ceftazidime <=1 Susceptible Ceftriaxone <=1 Susceptible Cefepime <=1 Susceptible Levofloxacin >=8 Resistant Imipenem <=0.25 Susceptible Gentamicin <=1 Susceptible Tobramycin <=1 Susceptible Laboratory test 01/22/2019 [facility] Prostate 1.23 ng/mL < 4.0 8, [address] [place] [address] Antigen [phone] Testosterone,Serum 21 ng/dL Low 264-916 10 Calcium 9.3 mg/dL Normal 8.5-10.1 Blood Culture 12/26/2018 [facility] Blood Culture NO GROWTH: 11, [address] Aerobic FINAL <[place] [address] NOTE> [phone] Blood Culture Anaerobic NO GROWTH: FINAL <SEE NOTE> 13 CBC W/Automated 12/26/2018 [facility] White Blood 9.7 K/uL Normal 3.4-10.[address] [place] [address] [phone] Red Blood Count 4.94 M/uL Normal 4.20-5.80 [...] 33.0-73.0 Lymph % 21.2 % Normal 20.0-42.0 Wilkinson % 7.3 % Normal 0.0-10.0 Eo% 6.7 % High 0.0-6.6 Bas% 0.7 % Normal 0.0-1.1 Immature Grans 0.3 % Normal 0.0-5.0 NRBC % 0.0 /100WBC < 10/ 100 WBC Neut# 6.18 K/uL Normal 1.8-7.0 Lymph # 2.05 K/uL Normal 1.0-4.0 Wilkinson # 0.71 K/uL Normal 0.0-0.8 Eos # 0.65 K/uL High 0.0-0.5 Baso # 0.07 K/uL Normal 0.0-0.1 Immature Grans Absolute 0.03 K/uL NRBC # 0.00 K/uL [facility] 12/26/2018 [facility] Glucose 92 mg/dL Normal 74-106 Metabolic Panel [address] [place] [address] [phone] BUN 15 mg/dL Normal 7-18 Creatinine 0.9 [...] Phosphatase 130 U/L High 45-117 Laboratory 12/26/2018 [facility] C-Reactive 4.14 <3.0 test finding [address] Protein,Cardiac mg/L [place], [place] [id number] [phone] Ast-GN67 12/25/2018 [facility] Nitrofurantoin <=[address] [place], [place] [address] [phone] Trimethoprim/Sulfamethoxazole >=320 Resistant Ampicillin >=32 Resistant Cefazolin <=4 Susceptible Ampicillin/Sulbactam 16 Intermediate Ciprofloxacin >=4 Resistant Piperacillin/Tazobactam <=4 Susceptible Ceftazidime <=1 Susceptible Ceftriaxone <=1 Susceptible Cefepime <=1 Susceptible Levofloxacin >=8 Resistant Imipenem <=0.25 Susceptible Gentamicin <=1 Susceptible Tobramycin <=1 Susceptible Culture If 12/25/2018 [facility] Culture If CULTURE TO 15 Indicated Comment [address] Indicated Comment FOLLO <[place] [address] NOTE> [phone] Source: URINE, CLEAN CAT <SEE NOTE> 16 Ua RFX Micro & 12/25/2018 [facility] Urine Color Light-Yellow Yellow Culture II [address] [place] [address] [phone] Urine Clarity Clear Clear Urine Glucose - Dipstick NEGATIVE mg/dL Negative Urine Bilirubin - Dipstick NEGATIVE Negative Urine Ketone NEGATIVE mg/dL Negative Urine Specific Norman 1.005 Low 1.010-1.030 Urine Blood SMALL Abnormal [...] CAT <SEE NOTE> 17 Urine Culture 12/25/2018 [facility] Urine ESCHERICHIA COLI Abnormal [address] [place] [address] [phone] Quantity > 100,000 CFU/mL 19 Urine Culture 09/30/2018 [facility] Urine ESCHERICHIA COLI Abnormal [address] [place] [address] [phone] Quantity > 100,000 CFU/mL 21 Ast-GN67 09/30/2018 [facility] Nitrofurantoin <=[address] [place] [address] [phone] Trimethoprim/Sulfamethoxazole >=320 Resistant Ampicillin >=32 Resistant Cefazolin [...] 7 URINE, STRAIGHT CATHETHER 8 C61 C61 P24.789B 9 THIS ASSAY IS NOT INTENDED A CANCER SCREENING TEST The concentration of PSA in a given specimen, determined with assays from different manufacturers, can vary due to differences in assay methods and reagent specificity. Values obtained from different assay methods cannot be used interchangeably. Method: Siemens Dimension [place] Chemiluminescent immunoassay. 10 Adult male reference interval is based on a population of healthy nonobese males (BMI <30) between 19 and 39 years old. Dara et.al. JCEM 2017,102;6603-8015. PMID: [id number]. Performed at: RN - [facility] [address] [id number] Commutator Operator: Heidi Owens MD, Phone: [phone] 11 U96.972B 12 NO GROWTH: FINAL REPORT 13 NO [...] CFU/mL Procedures Date Code Description Status 01/22/2019 66378 Insert Of Temporary Indwelling Bladder Catheter,Simple Completed 12/30/2018 87625 Trim Nondystrophic Nails Completed 12/25/2018 62404 Insert Of Temporary Indwelling Bladder Catheter,Simple Completed 11/25/2018 12534 Cystourethroscopy W/ Biopsy Completed 10/21/2018 53524 Insert Of Temporary Indwelling Bladder Catheter,Simple Completed 09/30/2018 20322 Insert Of Temporary Indwelling Bladder Catheter,Simple Completed 09/21/2018 91907 EKG Interpretation And Report Only Completed 09/11/2018 38117 Insert Of Temporary Indwelling Bladder Catheter,Simple Completed 10/06/2016 [id number] Colonoscopy Completed Medical Devices Description No Information Available Encounters Type Date Location Provider Dx Diagnosis Office Visit 03/13/2019 Family Medicine Hernandez López MD G20 Parkinson's disease 9:10a Stephen HUNTER Z74.09 Other reduced mobility F84.0 Autistic disorder [...] 2:45p Podiatry Office Luis, I70.203 Unsp athscl [place] TAMI Daley arteries of extremities, bilateral legs M20.5x1 Other [...] specified Office Visit 10/21/2018 3:45p Urology Noe Hawk R33.9 Retention of urine, PA unspecified Office [...] unspecified Office Visit 09/11/2018 3:30p Urology Noe Hawk, R33.9 Retention of urine, PA unspecified Assessments Date Code Description Provider 03/13/2019 G20 Parkinson's disease Hernandez López MD [...] 01/22/2019 N39.0 Urinary tract infection, site not Neo Hawk PA specified 01/08/2019 T83.511D Infection and inflammatory reaction Mayte Anderson M.D. due to indwelling urethral catheter, subsequent encounter 01/08/2019 B96.20 Unspecified Escherichia coli [E. Mayte Anderson M.D. coli] as the cause of diseases classified elsewhere 01/08/2019 G20 Parkinson's disease Matye Anderson M.D. 01/08/2019 C61 Malignant neoplasm of prostate Mayte Anderson M.D. 01/08/2019 F02.80 Dementia in other diseases classified Mayte Anderson M.D. elsewhere without beha 01/08/2019 R33.8 Other retention of urine Mayte Anderson M.D. 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 12/30/2018 I70.203 Unspecified atherosclerosis of [place] Edi Smith DPM arteries of extremities, bilateral [...] N39.0 Urinary tract infection, site not Hernandez Lóepz MD specified 11/12/2018 M20.40 Other hammer toe(s) (acquired), Hernandez López MD unspecified foot 11/12/2018 G20 Parkinson's disease Hernandez López MD 11/07/2018 N39.0 Urinary tract infection, site not Lj Solis M.D. specified 10/21/2018 R33.9 Retention of urine, unspecified Noe Hawk, PA 09/30/2018 C61 Malignant neoplasm of prostate Noe Hawk PA 09/30/2018 R33.9 Retention of urine, unspecified Noe Hawk, PA 09/23/2018 N39.0 Urinary tract infection, site not Roder, Isidra, SUPPLY CHAIN ASSISTANT specified 09/23/2018 R10.30 Lower abdominal pain, unspecified Roder, Isidra, SUPPLY CHAIN ASSISTANT 09/23/2018 F79 Unspecified intellectual disabilities Roder, Isidra, SUPPLY CHAIN ASSISTANT 09/23/2018 R33.9 Retention of urine, unspecified Roder, Isidra, SUPPLY CHAIN ASSISTANT 09/22/2018 N39.0 Urinary tract infection, site not Roder, Isidra, SUPPLY CHAIN ASSISTANT specified 09/22/2018 R10.30 Lower abdominal pain, unspecified Roder, Isidra, SUPPLY CHAIN ASSISTANT 09/22/2018 F79 Unspecified intellectual disabilities Roder, Isidra, SUPPLY CHAIN ASSISTANT 09/22/2018 R33.9 Retention of urine, unspecified Roder, Isidra, SUPPLY CHAIN ASSISTANT 09/21/2018 R94.31 Abnormal electrocardiogram [ECG] Alvaro Pereyra M.D. , [EKG] [facility] 09/21/2018 N39.0 Urinary tract infection, site not Roder, Isidra, SUPPLY CHAIN ASSISTANT specified 09/21/2018 I45.10 Unspecified right bundle-branch block Alvaro Pereyra M.D., [facility] 09/21/2018 R10.30 Lower abdominal pain, unspecified Roder, Isidra, SUPPLY CHAIN ASSISTANT 09/21/2018 F79 Unspecified intellectual disabilities Roder, Isidra, SUPPLY CHAIN ASSISTANT 09/21/2018 R33.9 Retention of urine, unspecified Roder, Isidra, SUPPLY CHAIN ASSISTANT 09/20/2018 N39.0 Urinary tract infection, site not [...] Noe Hawk PA Plan of Treatment Future Appointment(s):09/26/2019 9:00 am - Rena Cardenas MD at [facility] RD02/24/2020 9:00 am - Sid Torres MD at Cardiology [id number] 8:30 am - Rena Cardenas MD at [facility] RD Functional Status Functional Condition Comment Date Status Rolling walker is used to ambulate Active Mental Status Description No Information Available Referrals Refer to Dr Reason for Referral Status Appt Date Mayte Anderson M.D. Recurrent UTI - Currently E-Coli and MRSA Closed 2018 [address] [place] [address] [phone] Edi Smith DPM Scheduled 04/01/2019 [address] [place] [address] [phone]
[2019-04-12 15:14] LABS: ABS Basophils 0.1 10^3/ul (0-0.2); ABS Eosinophils 0.1 10^3/ul (0-0.6); ABS Lymphocytes 1.8 10^3/ul (1.0-4.8); Eosinophil % 0.4 %; Hematocrit 36 % (42-52); Hemoglobin 12.6 g/dL (14.0-18.0); Mean Corpuscular HGB Conc 35 g/dL (31-36); Mean Corpuscular Hemoglobin 31 pg (27-31); Mean Corpuscular Volume 88 fL (80-94); Mean Platelet Volume 7.6 fL (7.4-10.4); Platelet Count 223 10^3/uL (150-450); Red Blood Count 4.05 10^6 /uL (4.18-5.48); Red Cell Distribution Width 13 % (10-15)
[2019-04-12 15:29] LABS: Albumin 4.1 g/dL (3.2-5.2); Albumin/Globulin Ratio 1.4 (1-3); BUN/Creatinine Ratio 18.3 (8-20); Calcium 8.8 mg/dL (8.6-10.3); EGFR African American 111.1 (>60); EGFR Non-African American 91.8 (>60); Potassium 4.1 mmol/L (3.5-5.0); Total Bilirubin 1.2 mg/dL (0.2-1.0); Total Protein 7.1 g/dL (6.4-8.9)
[2019-04-12 15:31] LABS: Activated Partial Thrombo Time 56.3 seconds (26.0-38.0); INR 1.21 (0.82-1.09); Troponin I 0.01 ng/mL (<0.03)
[2019-04-12] MEDS ORDERED: Iohexol 350* (CONTRAST) 500 ML MDV IV ONE (16:07)
[2019-04-12 16:20] LABS: Influenza A Molecular Negative (Negative); Influenza B Molecular Negative (Negative)
[2019-04-12 17:56] LABS: Urine Appearance Turbid; Urine Bilirubin Negative (Negative); Urine Blood 1+ (Negative); Urine Color Yellow; Urine Glucose Negative (Negative); Urine Ketones 1+ (Negative); Urine Nitrite Negative (Negative); Urine Protein 2+(100 mg/dL) (Negative); Urine Specific Gravity 1.036 (1.010-1.030); Urine Urobilinogen Negative (Negative)
[2019-04-12 18:11] LABS: Urine Bacteria Absent (Absent); Urine Red Blood Cell 1+(3-5/hpf) (Absent); Urine White Blood Cell 3+(>20/hpf) (Absent)
[2019-04-12] MEDS ORDERED: Cefepime(*) 1 GM in NS 0.9% 50 ML* 50 ML IVPB ONE (18:33)
[2019-04-12] MEDS ORDERED: Cefepime 1 GM in Dextrose(*) 1 GM/50 ML BAG IV ONE (18:42)
[2019-04-12] MEDS ORDERED: ALPRAZolam TAB* 0.5 MG PO PRN (19:01)
[2019-04-12] MEDS ORDERED: GuaiFENesin DM sugar free 100mg/10mg 5 ML UDC PO PRN (19:01)
[2019-04-12] MEDS ORDERED: Acetaminophen TAB* 325 MG PO PRN (19:01)
[2019-04-12] MEDS ORDERED: Fluconazole 100 MG TAB* TAB PO ONE (19:17)
[2019-04-12] MEDS ORDERED: Carbidopa/Levodop 25/100 MG TAB(*) PO SCH (20:00)
[2019-04-12] MEDS ORDERED: Fluconazole 100 MG TAB* TAB PO SCH (21:00)
--- NOTE | 2019-04-12 21:57 | HP ---
CC: Dr. Ordaz * [facility] MEDICINE HISTORY AND PHYSICAL: DATE OF ADMISSION: 04/12/19 PRIMARY CARE PHYSICIAN: Dr. Ordaz. ATTENDING PHYSICIAN: Dr. Joe Mccollum * (dictation provided by Meeta Dozier NP). CHIEF COMPLAINT: Weakness. HISTORY OF PRESENT ILLNESS: Mr. Morin is a 74-year-old male with a past medical history and HPI which is limited today from the developmental home from the ones he lives. The report is that he has a history of developmental delay and a newer diagnosis of Parkinson's disease. [facility], he has had much more limited intake over the past couple of years. At this point, he is only tolerating pudding or yogurt, and for the most part is not very interested in eating. Over the past few days, he has been taken to [facility] out of concern that he was not acting like himself and that he was weak and even eating less than usual. Per the report from the staff there, he was evaluated, but always sent back home. Today , they again were concerned about him and therefore brought him to [facility] for evaluation. Per the report, he is on Tamiflu as he had been exposed to it at the facility where he resides. He is on Keflex presumably for concern for urinary tract infection. He does have a chronic indwelling Albrecht. Here in the emergency room today, the patient was noted to have a leukocytosis with a white blood cell count of 14. He is not febrile. He is mildly anemic with a hemoglobin of 12.6. His basic metabolic panel is essentially normal. His urine shows 3+ leukocyte esterase, but no nitrite, and no bacteria, and again he does have a chronic indwelling Albrecht. His flu swab is negative. He had a chest x-ray, which showed no evidence for active cardiopulmonary disease, but he went on for a chest thorax CTA that showed "no evidence of PE, but a mild right basilar infiltrate, which may represent a developing pneumonia." PAST MEDICAL HISTORY: History of seizure, history of developmental delay, history of COPD, reported prostate cancer, cholecystectomy, and bilateral cataract surgery. MEDICATIONS: 1. Guaifenesin/dextromethorphan 10 mL p.o. q.6 hours p.r.n. 2. Tylenol 325 mg p.o. q.6 hours p.r.n. 3. Alprazolam 1 mg p.o. daily p.r.n. 4. Esomeprazole 20 mg p.o. b.i.d. 5. Buspirone 10 mg p.o. t.i.d. 6. Midodrine 10 mg p.o. t.i.d. 7. Lupron 45 mg q.6 months. 8. Oseltamivir 75 mg p.o. daily. 9. Mirtazapine 30 mg p.o. daily. 10. Keflex 500 mg p.o. b.i.d. 11. Multivitamin 1 tab p.o. daily. 12. Carbidopa and levodopa, total of 9 tabs daily. We will review dosing frequency. 13. Amantadine 100 mg daily. ALLERGIES: PENICILLIN and TAZOBACTAM. FAMILY HISTORY: Unobtainable. SOCIAL HISTORY: No record of alcohol, tobacco, drug use. The patient has development delay and lives in a home and he is a DNR/DNI on file from the home. REVIEW OF SYSTEMS: The patient denies complaint today, but again his report is limited. PHYSICAL EXAMINATION GENERAL: Mr. Morin is lying in bed. He is in no acute distress. VITAL SIGNS: Temperature 99.4, pulse rate 91, respiratory rate 18, O2 saturation 96% on room air, and blood pressure 119/77. HEENT: The patient has copious white secretions on his tongue and lips. LUNGS: The patient has upper airway congestion. Unable to clear secretions, weak cough despite encouragement. Unable to assess for adventitious lung sounds given radiation of upper airway sound into the thorax. There is no accessory muscle use. HEART: S1, S2. No murmur, rub or gallop, and regular. ABDOMEN: Soft, nontender. Bowel sounds positive x4. EXTREMITIES: No cyanosis or edema. NEUROLOGIC: He is alert. He states his name is Darvin. He confirms he is thirsty and does drink a sip of water and then states no when I asked if he wants more. He has contractures in his arms and limited mobility. His face is symmetrical. Extraocular movements are intact. SKIN: Intact. DIAGNOSTIC STUDIES/LAB DATA: WBC 14.0, hemoglobin 12.6, hematocrit 36, and platelet count 223. INR 1.21. Sodium 137, potassium 4.1, chloride 105, serum bicarbonate 23, BUN 15, creatinine 0.82, glucose 93. Troponin 0.01. Urine shows again, no nitrite, positive 3+ leukocyte esterase, and no bacteria. Flu swab is negative. Again, the chest/thorax CTA is as read above as is the chest x-ray and his EKG showed sinus rhythm, no evidence of ischemia. ASSESSMENT: Mr. Morin is a 74-year-old male with past medical history of developmental delay and Parkinson's disease, who presents today to the hospital with concern for not acting himself at his facility and having a poor appetite. Here today we have a question of potential pneumonia. Our plans will be for inpatient admission as expected length of stay to be greater than 2 days for the followin. Question of pneumonia: Based on the patient's presentation, I suspect he is aspirating. I have written for a swallow eval with Speech Therapy. I will have nursing staff assess his swallow before continuing with his diet, while he await more formal evaluation from the speech therapist. For potential aspiration pneumonia, we will treat with ceftriaxone and metronidazole. 2. Parkinson's disease. Plan to continue his carbidopa and levodopa. We will confirm dose with his team at his home. 3. Thrush. Patient's oropharynx appears coated with candidiasis. Plan to start diflucan now. 4. Flu exposure. Continue Tamiflu. 5. DVT prophylaxis. Heparin subcu. 6. Code status is DNR/DNI. 7. Disposition: To medical floor. TIME SPENT: Approximately 60 minutes was spent on the admission of this patient , more than half the time was spent with the patient at the bedside reviewing the events leading up to this hospitalization, performing the physical examination, and reviewing my plan of care. MEETA DOZIER NP [id number]/[facility] #: [id number] MELONY
[2019-04-12] MEDS: cefTRIAXone(*) 1 GM in NS 0.9% 50 ML* 50 ML IVPB SCH (22:05)
[2019-04-12] MEDS: metroNIDAZOLE IV 500 MG/100ML* 500 MG/100 ML BAG IVPB SCH (23:24)
[2019-04-12] MEDS: busPIRone TAB* 10 MG PO SCH (23:54)
[2019-04-12] MEDS: Carbidopa/Levodop 25/100 MG TAB(*) PO SCH (23:54)
[2019-04-13] MEDS: Heparin VIAL(*) 5000 UNITS/ML VIAL (FIVE THOUSAND) SUBCUT SCH ×4 (00:25→21:10)
[2019-04-13 05:17] LABS: ABS Lymphocytes 2.2 10^3/ul (1.0-4.8); ABS Monocytes 0.9 10^3/ul (0-0.8); ABS Neutrophils 9.1 10^3/ul (1.5-7.7); Eosinophil % 0.3 %; Hematocrit 34 % (42-52); Hemoglobin 11.9 g/dL (14.0-18.0); Mean Corpuscular HGB Conc 35 g/dL (31-36); Mean Corpuscular Hemoglobin 31 pg (27-31); Mean Corpuscular Volume 88 fL (80-94); Mean Platelet Volume 7.9 fL (7.4-10.4); Platelet Count 227 10^3/uL (150-450); Red Blood Count 3.89 10^6 /uL (4.18-5.48); Red Cell Distribution Width 13 % (10-15); White Blood Count 12.3 10^3/uL (3.5-10.8)
[2019-04-13 05:33] LABS: BUN/Creatinine Ratio 22.1 (8-20); Calcium 8.7 mg/dL (8.6-10.3); EGFR African American 119.5 (>60); EGFR Non-African American 98.8 (>60); Potassium 3.7 mmol/L (3.5-5.0)
[2019-04-13] MEDS: metroNIDAZOLE IV 500 MG/100ML* 500 MG/100 ML BAG IVPB SCH ×3 (06:16→21:58)
[2019-04-13] MEDS ORDERED: Pantoprazole TAB * 40 MG TAB PO SCH (09:00)
[2019-04-13] MEDS: NS 0.9% 1000 ML** 1,000 ML IV SCH (12:35)
[2019-04-13] MEDS: Amantadine SOLN* ORALSYR 10 MG/ML ML PO SCH (14:45)
[2019-04-13] MEDS: Carbidopa/Levodop 25/100 MG TAB(*) PO SCH ×4 (14:45→20:59)
[2019-04-13] MEDS: Oseltamivir CAP* 75 MG CAP PO SCH (14:46)
[2019-04-13] MEDS: busPIRone TAB* 10 MG PO SCH ×2 (14:46→21:00)
--- NOTE | 2019-04-13 15:08 | PN ---
Subjective Date of Service: 04/13/19 Interval History: Patient was unable to obey command well. He was only able to answer "yes" or "No " otherwise no more verbal output. Nurse noticed he aspirated on ensure even. Staff from his home showed up tonight, describing his symptoms are new since [place], He was able to drink liquid drink before this. He was noticed to have poor mouth care. Objective Active Medications: Acetaminophen (Tylenol Tab*) 325 mg PO Q6HR PRN PRN Reason: PAIN - MILD Alprazolam (Xanax Tab*) 1 mg PO DAILY PRN PRN Reason: AGITATION Amantadine HCl (Symmetrel Liq*) 50 mg PO DAILY [facility] Last Admin: 04/13/19 14:45 Dose: Not Given Buspirone HCl (Buspar Tab*) 10 mg PO TID [facility] Last Admin: 04/13/19 14:46 Dose: Not Given Carbidopa/Levodopa (Sinemet 25/100 Tab(*)) 1.5 tab PO 0700,1000,1300 [facility] Last Admin: 04/13/19 14:50 Dose: Not Given Carbidopa/Levodopa (Sinemet 25/100 Tab(*)) 1.5 tab PO 1600,1900 [facility] Last Admin: 04/12/19 23:54 Dose: Not Given Guaifenesin/Dextromethorphan (Robitussin Dm 100mg/10mg Sugar Free*) 10 ml PO Q6HR PRN PRN Reason: COUGH Heparin Sodium (Porcine) (Heparin Vial(*)) 5,000 units SUBCUT Q8HR [facility] Last Admin: 04/13/19 14:49 Dose: 5,000 units Ceftriaxone Sodium 1 gm/ (Sodium Chloride) 50 mls @ 100 mls/hr IVPB Q24H [facility] Last Admin: 04/12/19 22:05 Dose: 100 mls/hr Metronidazole/Sodium Chloride (Flagyl 500 Mg Ivpb*) 500 mg in 100 mls @ 100 mls /hr IVPB Q8H [facility] Last Admin: 04/13/19 14:49 Dose: 100 mls/hr Sodium Chloride (Ns 0.9% 1000 Ml) 1,000 mls @ 75 mls/hr IV PER RATE [facility] Stop: 04/14/19 11:14 Last Admin: 04/13/19 12:35 Dose: 75 mls/hr Fluconazole/Sodium Chloride (Diflucan 100 Mg Ivpremix(*)) 100 mg in 50 mls @ 100 mls/hr IVPB Q24H [facility] Stop: 04/20/19 14:59 Midodrine (Midodrine) 10 mg PO TID@0900,1300,1800 [facility]; Protocol Last Admin: 04/13/19 14:46 Dose: Not Given Oseltamivir Phosphate (Tamiflu Cap*) 75 mg PO DAILY [facility] Last Admin: 04/13/19 14:46 Dose: Not Given Pantoprazole Sodium (Protonix Iv*) 40 mg IV BID [facility] Vital Signs - 8 hr 04/13/19 04/13/19 04/13/19 07:52 08:00 12:02 Temperature 97.8 F 98.4 F Pulse Rate 87 94 Respiratory 22 19 22 Rate Blood Pressure 99/60 124/73 (mmHg) O2 Sat by Pulse 97 97 96 Oximetry Oxygen Devices in Use Now: Nasal Cannula Exam: Appearance: looks younger than his age, alert and confused, mouth wide open Ears/Nose/Mouth/Throat:Yellowish cursted Oropharnyx, Mucous Membranes dry and crusted. Respiratory: Symmetrical Chest Expansion and Respiratory Effort, decreased air entry. Cardiovascular: NL Sounds; No Murmurs; No JVD, RRR Abdominal: NL Sounds; No Tenderness; No Distention, No Hepatosplenomegaly Extremities: no edema Neurological: Alert and Oriented x 3 Result Diagrams: 04/13/19 04:26 04/13/19 04:26 Assess/Plan/Problems-Billing Assessment: Matt Farfan is a 74y/o male with history of developmental delay, COPD, history of prostate CA, newly diagnosed parkinson disease, presented with altered mental status, failure to thrive, found to have aspiration pneumonia, and likely thrush. - Patient Problems (1) Altered mental status Current Visit: Yes Status: Acute Code(s): R41.82 - ALTERED MENTAL STATUS, UNSPECIFIED SNOMED Code(s): 570681761 Comment: - multifactorial: developmental delay, pneumonia related, ? CVA - swollowing eval tomorrow - keep npo with iv fluid tonight - ct brain to rule out ACS today (2) Aspiration pneumonia Current Visit: Yes Status: Acute Code(s): J69.0 - PNEUMONITIS DUE TO INHALATION OF FOOD AND VOMIT SNOMED Code(s): 662290219 Comment: - iv ceftriaxone and metronidazole, on D2 - continue for now - swallow eval as mentioned. (3) Exposure to the flu Current Visit: Yes Status: Acute Code(s): Z20.828 - CONTACT W AND EXPOSURE TO OTH VIRAL COMMUNICABLE DISEASES SNOMED Code(s): 414689676 Comment: - continue tamiflu - trafce his groupd home record, check when was the exposure - aim 7 days post flu connect. (4) Thrush Current Visit: Yes Status: Acute Code(s): B37.0 - CANDIDAL STOMATITIS SNOMED Code(s): 78401107 Comment: - was thought to have thrush on admission - more yellowish crust inside the mouth. - convert to iv fluconazole while npo (5) DVT prophylaxis Current Visit: Yes Status: Acute Code(s): Z29.9 - ENCOUNTER FOR PROPHYLACTIC MEASURES, UNSPECIFIED SNOMED Code(s): 288267312 Comment: sc heparin Status and Disposition: Inpatient Medicine. Attestation Documenting Resident: Gloria Orr Supervising Physician: ford torres Attending/Supervising Physician Comment: Agree with resident note and findings Attending A/P 74M with developmental delay, Parkinsons dz domiciled at long[facility]term who presented with AMS thought to be attributed to microaspiration and oral thrush vs poor oral care Plan -Speech and swallow eval as able, [place] and CTX for aspiration pneumontis, pending [facility] Attestation: This service has been performed in part by a resident under the direction of a teaching physician.I, ford torres, performed the service, or was physically present during the critical, or rose portions of the service, furnished by the resident. I participated in the management of the patient.
[2019-04-13] MEDS: Pantoprazole IV* 40 MG IV SCH (20:54)
[2019-04-13] MEDS: cefTRIAXone(*) 1 GM in NS 0.9% 50 ML* 50 ML IVPB SCH (20:54)
[2019-04-13] MEDS: Fluconazole 100 MG IVPREMIX(*) 100 MG/50 ML BAG IVPB SCH (23:21)
[2019-04-14] MEDS: metroNIDAZOLE IV 500 MG/100ML* 500 MG/100 ML BAG IVPB SCH ×3 (03:44→21:43)
[2019-04-14] MEDS: Heparin VIAL(*) 5000 UNITS/ML VIAL (FIVE THOUSAND) SUBCUT SCH ×3 (05:49→22:58)
[2019-04-14] MEDS: Carbidopa/Levodop 25/100 MG TAB(*) PO SCH ×5 (05:52→22:40)
--- NOTE | 2019-04-14 07:23 | PN ---
Subjective Date of Service: 04/14/19 Interval History: HD 3 on 04/14 Overnight: No acute overnight events Vitals: RR 24-28; On 3 L of O2. Patient seen in bedside with staff from [facility]. According to the staff , patient was on his baseline 2 weeks ago but since then he is fluctuating on and off and is back and forth to hospital. This is his 3rd hospital admission in 2 weeks. Patient able to make eye contact and follow command. oriented to self. At baseline, patient is able to walk with one assist, can go to bathroom, play crossword and does not use oxygen. Has poor oral hygiene. Objective Active Medications: Acetaminophen (Tylenol Tab*) 325 mg PO Q6HR PRN PRN Reason: PAIN - MILD Alprazolam (Xanax Tab*) 1 mg PO DAILY PRN PRN Reason: AGITATION Amantadine HCl (Symmetrel Liq*) 50 mg PO DAILY [facility] Last Admin: 04/13/19 14:45 Dose: Not Given Buspirone HCl (Buspar Tab*) 10 mg PO TID [facility] Last Admin: 04/13/19 21:00 Dose: 10 mg Carbidopa/Levodopa (Sinemet 25/100 Tab(*)) 1.5 tab PO 0700,1000,1300 [facility] Last Admin: 04/14/19 05:52 Dose: Not Given Carbidopa/Levodopa (Sinemet 25/100 Tab(*)) 1.5 tab PO 1600,1900 [facility] Last Admin: 04/13/19 20:59 Dose: 1.5 tab Guaifenesin/Dextromethorphan (Robitussin Dm 100mg/10mg Sugar Free*) 10 ml PO Q6HR PRN PRN Reason: COUGH Heparin Sodium (Porcine) (Heparin Vial(*)) 5,000 units SUBCUT Q8HR [facility] Last Admin: 04/14/19 05:49 Dose: 5,000 units Ceftriaxone Sodium 1 gm/ (Sodium Chloride) 50 mls @ 100 mls/hr IVPB Q24H [facility] Last Admin: 04/13/19 20:54 Dose: 100 mls/hr Metronidazole/Sodium Chloride (Flagyl 500 Mg Ivpb*) 500 mg in 100 mls @ 100 mls /hr IVPB Q8H [facility] Last Admin: 04/14/19 03:44 Dose: 100 mls/hr Sodium Chloride (Ns 0.9% 1000 Ml) 1,000 mls @ 75 mls/hr IV PER RATE [facility] Stop: 04/14/19 11:14 Last Admin: 04/13/19 12:35 Dose: 75 mls/hr Fluconazole/Sodium Chloride (Diflucan 100 Mg Ivpremix(*)) 100 mg in 50 mls @ 100 mls/hr IVPB Q24H [facility] Stop: 04/20/19 20:59 Last Admin: 04/13/19 23:21 Dose: 100 mls/hr Midodrine (Midodrine) 10 mg PO TID@0900,1300,1800 [facility]; Protocol Last Admin: 04/13/19 18:04 Dose: Not Given Oseltamivir Phosphate (Tamiflu Cap*) 75 mg PO DAILY [facility] Last Admin: 04/13/19 14:46 Dose: Not Given Pantoprazole Sodium (Protonix Iv*) 40 mg IV BID [facility] Last Admin: 04/13/19 20:54 Dose: 40 mg Vital Signs - 8 hr 04/14/19 02:46 Temperature 97.7 F Pulse Rate 95 Respiratory 24 Rate Blood Pressure 123/74 (mmHg) O2 Sat by Pulse 96 Oximetry Oxygen Devices in Use Now: Nasal Cannula Exam: Appearance: looks younger than his age, alert and confused, mouth wide open Ears/Nose/Mouth/Throat:Yellowish cursted Oropharnyx, Mucous Membranes dry and crusted. Respiratory: Symmetrical Chest Expansion and Respiratory Effort, crackles heard all over lungs. Cardiovascular: NL Sounds; No Murmurs; No JVD, RRR Abdominal: NL Sounds; No Tenderness; No Distention, No Hepatosplenomegaly Extremities: no edema Neurological: oriented to self; follows command Result Diagrams: 04/13/19 04:26 04/14/19 07:06 Diagnostic Imaging: CTH: 04/14 IMPRESSION: NO ACUTE INTRACRANIAL PATHOLOGY. CTA 04/13: IMPRESSION: No evidence of PE. Mild right basilar infiltrate which may represent a developing pneumonia. 1 of 2 Assess/Plan/Problems-Billing Assessment: Matt Farfan is a 74y/o male with history of developmental delay, COPD, remote history of prostate CA, newly diagnosed parkinson disease, presented with altered mental status, failure to thrive, found to have aspiration pneumonia, and likely thrush. Now having dysphagia; pending swallow eval; Urine growing Pseudomonas. On cefepime(day 1) and flagyl(day 3). - Patient Problems (1) Altered mental status Current Visit: Yes Status: Acute Code(s): R41.82 - ALTERED MENTAL STATUS, UNSPECIFIED SNOMED Code(s): 597399643 Comment: - multifactorial: developmental delay, worsening parkinson and from infections( pneumonia+UTI) - pending swallowing eval - NPO till swallow eval - ct brain negative for acute intracranial pathology (2) Aspiration pneumonia Current Visit: Yes Status: Acute Code(s): J69.0 - PNEUMONITIS DUE TO INHALATION OF FOOD AND VOMIT SNOMED Code(s): 924393439 Comment: - was on ceftriaxone and flagyl(day 3 on 04/14) -switched to cefepime and flagyl(on 04/14) as urine growing pseudomonas - continue for now - swallow eval as mentioned. (3) UTI (urinary tract infection) Current Visit: Yes Status: Acute Comment: -has chronic delvalle catheter; has recurrent UTI -urine culture- pseudomonas -switched to cefepime(day 1 on 04/14) (4) Exposure to the flu Current Visit: Yes Status: Acute Code(s): Z20.828 - CONTACT W AND EXPOSURE TO OTH VIRAL COMMUNICABLE DISEASES SNOMED Code(s): 834297413 Comment: - continue tamiflu -continue for 7 days post last contact. -he was admitted on 04/13- so continue till 04/19. (5) Thrush Current Visit: Yes Status: Acute Code(s): B37.0 - CANDIDAL STOMATITIS SNOMED Code(s): 28939064 Comment: - was thought to have thrush on admission - more yellowish crust inside the mouth; less likey thrush -has dysphagia- could be from dried crust or bad oral hygiene or has underlying esophagitis; patient cannot provide much history -will treat empirically for esophagitis -on fluconazole(day 2 on 04/14) (6) DVT prophylaxis Current Visit: Yes Status: Acute Code(s): Z29.9 - ENCOUNTER FOR PROPHYLACTIC MEASURES, UNSPECIFIED SNOMED Code(s): 842144826 Comment: sc heparin Status and Disposition: Inpatient Medicine. Attending: Corazon Tran Attestation Documenting Resident: Caesar Thorne Supervising Physician: Corazon Tran Attending/Supervising Physician Comment: Agree with resident note and findings Attending A/P 74M with developmental delay, Parkinsons dz with chronic delvalle domiciled at shelter who presented with AMS thought to be attributed to microaspiration and oral thrush vs poor oral care, with Pseudomonas UTI discovered today 04/14 Plan -Aggressive oral care today, no clear evidence of thrush, can't exclude thrush esophagitis and can continue antigunfal but change to oral -UTI showing pseudomonas, broaden to Cefipime today -Speech and swallow reports pt able to swallow applesauce, he wants pt to remain NPO one day, re asses and consider fluro tomorrow may expand diet to honey thick and pureed -If pt is unable to improve from a mental status standpoint we may need to re address GOC to determine if a PEG tube is in fact indicated if that is in line vs a more palliative approach Attestation: This service has been performed in part by a resident under the direction of a teaching physician.I, Corazon Tran, performed the service, or was physically present during the critical, or rose portions of the service, furnished by the resident. I participated in the management of the patient.
[2019-04-14 07:46] LABS: Anion Gap 13 mmol/L (2-11); Blood Urea Nitrogen 20 mg/dL (6-24); CO2 Carbon Dioxide 21 mmol/L (22-32); Calcium 8.6 mg/dL (8.6-10.3); Chloride 106 mmol/L (101-111); EGFR African American 135.6 (>60); EGFR Non-African American 112.1 (>60); Glucose 83 mg/dL (70-100); Potassium 3.6 mmol/L (3.5-5.0); Sodium 140 mmol/L (135-145)
[2019-04-14] MEDS: NS 0.9% 1000 ML** 1,000 ML IV SCH (08:11)
[2019-04-14 08:44] LABS: TSH (Thyroid Stimulating Horm) 2.12 mcIU/mL (0.34-5.60)
[2019-04-14 08:55] LABS: Folate > 20.00 ng/mL (>3.99)
[2019-04-14] MEDS: Amantadine SOLN* ORALSYR 10 MG/ML ML PO SCH (10:50)
[2019-04-14] MEDS: busPIRone TAB* 10 MG PO SCH ×3 (10:51→22:40)
[2019-04-14] MEDS: Oseltamivir CAP* 75 MG CAP PO SCH (10:51)
[2019-04-14] MEDS: Pantoprazole IV* 40 MG IV SCH ×2 (11:34→22:58)
[2019-04-14] MEDS: Cefepime 2 GM in Dextrose(*) 2 GM/50 ML BAG IV SCH (14:32)
[2019-04-14] MEDS ORDERED: NS 0.9% 1000 ML** 1,000 ML IV ONE (16:11)
[2019-04-14] MEDS: cefTRIAXone(*) 1 GM in NS 0.9% 50 ML* 50 ML IVPB SCH (21:38)
[2019-04-14] MEDS: Fluconazole 100 MG IVPREMIX(*) 100 MG/50 ML BAG IVPB SCH (22:58)
[2019-04-15] MEDS: Cefepime 2 GM in Dextrose(*) 2 GM/50 ML BAG IV SCH ×2 (02:16→13:58)
[2019-04-15] MEDS: metroNIDAZOLE IV 500 MG/100ML* 500 MG/100 ML BAG IVPB SCH ×2 (03:53→12:00)
[2019-04-15] MEDS: Heparin VIAL(*) 5000 UNITS/ML VIAL (FIVE THOUSAND) SUBCUT SCH ×2 (05:39→13:59)
[2019-04-15] MEDS: Carbidopa/Levodop 25/100 MG TAB(*) PO SCH ×4 (05:39→15:52)
--- NOTE | 2019-04-15 06:46 | PN ---
Subjective Date of Service: 04/15/19 Interval History: HD 4 on 04/15 NO acute overnight events. Vitals stable; on 3 L of oxygen Patient makes eye contact and incomprehensible sounds. re-evaluated by speech therapist and has aspiration even on restricted diet. Held discussion with patient brother-Jean Carlos and he does not want PEG tube placement. he wants him to be comfort care and honour patient wishes. intermediate staff made aware. Objective Active Medications: Acetaminophen (Tylenol Tab*) 325 mg PO Q6HR PRN PRN Reason: PAIN - MILD Alprazolam (Xanax Tab*) 1 mg PO DAILY PRN PRN Reason: AGITATION Amantadine HCl (Symmetrel Liq*) 50 mg PO DAILY [facility] Last Admin: 04/14/19 10:50 Dose: Not Given Buspirone HCl (Buspar Tab*) 10 mg PO TID [facility] Last Admin: 04/14/19 22:40 Dose: Not Given Carbidopa/Levodopa (Sinemet 25/100 Tab(*)) 1.5 tab PO 0700,1000,1300 [facility] Last Admin: 04/15/19 05:39 Dose: Not Given Carbidopa/Levodopa (Sinemet 25/100 Tab(*)) 1.5 tab PO 1600,1900 [facility] Last Admin: 04/14/19 22:40 Dose: Not Given Guaifenesin/Dextromethorphan (Robitussin Dm 100mg/10mg Sugar Free*) 10 ml PO Q6HR PRN PRN Reason: COUGH Heparin Sodium (Porcine) (Heparin Vial(*)) 5,000 units SUBCUT Q8HR [facility] Last Admin: 04/15/19 05:39 Dose: 5,000 units Metronidazole/Sodium Chloride (Flagyl 500 Mg Ivpb*) 500 mg in 100 mls @ 100 mls /hr IVPB Q8H [facility] Last Admin: 04/15/19 03:53 Dose: 100 mls/hr Fluconazole/Sodium Chloride (Diflucan 100 Mg Ivpremix(*)) 100 mg in 50 mls @ 100 mls/hr IVPB Q24H [facility] Stop: 04/20/19 20:59 Last Admin: 04/14/19 22:58 Dose: 100 mls/hr Cefepime HCl (Maxipime 2 Gm In Dextrose Duplex (*)) 2 gm in 50 mls @ 100 mls/ hr IV Q12H [facility] Last Admin: 04/15/19 02:16 Dose: 100 mls/hr Midodrine (Midodrine) 10 mg PO TID@0900,1300,1800 [facility]; Protocol Last Admin: 04/14/19 17:45 Dose: 10 mg Oseltamivir Phosphate (Tamiflu Cap*) 75 mg PO DAILY [facility] Stop: 04/19/19 21:00 Last Admin: 04/14/19 10:51 Dose: Not Given Pantoprazole Sodium (Protonix Iv*) 40 mg IV BID [facility] Last Admin: 04/14/19 22:58 Dose: 40 mg Vital Signs - 8 hr 04/14/19 04/15/19 04/15/19 23:56 01:21 03:27 Temperature 98.4 F 97.7 F Pulse Rate 89 87 Respiratory 20 20 22 Rate Blood Pressure 116/72 109/73 (mmHg) O2 Sat by Pulse 97 95 Oximetry Oxygen Devices in Use Now: OxyMask Exam: Appearance: looks younger than his age, confused, mouth wide open Ears/Nose/Mouth/Throat: Mucous Membranes dry and crusted. Respiratory: Symmetrical Chest Expansion and Respiratory Effort, crackles heard all over lungs. Cardiovascular: NL Sounds; No Murmurs; No JVD, RRR Abdominal: NL Sounds; No Tenderness; No Distention, No Hepatosplenomegaly Extremities: no edema Neurological: making incomhrehensible sound; makes eye contact Result Diagrams: 04/15/19 07:20 04/15/19 07:20 Diagnostic Imaging: CTH: 04/14 IMPRESSION: NO ACUTE INTRACRANIAL PATHOLOGY. CTA 04/13: IMPRESSION: No evidence of PE. Mild right basilar infiltrate which may represent a developing pneumonia. 1 of 2 Assess/Plan/Problems-Billing Assessment: Matt Farfan is a 74y/o male with history of developmental delay, COPD, remote history of prostate CA, newly diagnosed parkinson disease, presented with altered mental status, failure to thrive, found to have aspiration pneumonia, and likely thrush. Now having dysphagia; pending swallow eval; Urine growing Pseudomonas. Now on comfort care. - Patient Problems (1) Altered mental status Current Visit: Yes Status: Acute Code(s): R41.82 - ALTERED MENTAL STATUS, UNSPECIFIED SNOMED Code(s): 021482663 Comment: - multifactorial: developmental delay, worsening parkinson and from infections( pneumonia+UTI) - ct brain negative for acute intracranial pathology -ongoing aspiration even with restricted diet- evaluated by speech therapy. -Spoke to his brother-jean carlos: does not PEG tube and wnats comfort measures only to honour patient wishes. -stopped abx and antifungals. (2) Aspiration pneumonia Current Visit: Yes Status: Acute Code(s): J69.0 - PNEUMONITIS DUE TO INHALATION OF FOOD AND VOMIT SNOMED Code(s): 568108172 Comment: - swallow eval as mentioned. -comfort care now. (3) UTI (urinary tract infection) Current Visit: Yes Status: Acute Comment: -has chronic delvalle catheter; has recurrent UTI -urine culture- pseudomonas -stopped abx (4) Exposure to the flu Current Visit: Yes Status: Acute Code(s): Z20.828 - CONTACT W AND EXPOSURE TO OTH VIRAL COMMUNICABLE DISEASES SNOMED Code(s): 652432869 Comment: - continue tamiflu -continue for 7 days post last contact. -he was admitted on 04/13- so continue till 04/19. (5) Thrush Current Visit: Yes Status: Acute Code(s): B37.0 - CANDIDAL STOMATITIS SNOMED Code(s): 05080792 Comment: - was thought to have thrush on admission - more yellowish crust inside the mouth; less likey thrush -has dysphagia- could be from dried crust or bad oral hygiene or has underlying esophagitis; patient cannot provide much history (6) DVT prophylaxis Current Visit: Yes Status: Acute Code(s): Z29.9 - ENCOUNTER FOR PROPHYLACTIC MEASURES, UNSPECIFIED SNOMED Code(s): 952783233 Comment: sc heparin (7) DNR (do not resuscitate) Current Visit: Yes Status: Acute Status and Disposition: Inpatient Medicine. palliative care consult placed Attending: Corazon Tran Attestation Documenting Resident: Caesar Thorne Supervising Physician: Corazon Tran Attending/Supervising Physician Comment: Agree with resident note and findings Attending A/P 74M with developmental delay, Parkinsons dz with chronic delvalle domiciled at senior care who presented with AMS thought to be attributed to microaspiration and aspiration PNA with now evidence of ongoing aspiration with worsening mental status, with Pseudomonas UTI discovered 04/14 Plan -Aggressive oral care today, no clear evidence of thrush, can't exclude thrush esophagitis and can continue antigunfal but change to oral -UTI showing pseudomonas, broaden to Cefipime 04/14, if GOC change would advocate stopping all abx and antifungal -Speech and swallow after 2 days of evaluation show pt unable to safely swallow and recommending NPO as defnitve diet, ensure no desire for PEG and change to hospice care if family feels appropriate, message has been left with brother, can also call staff at his home. Attestation: This service has been performed in part by a resident under the direction of a teaching physician.I, Corazon Tran, performed the service, or was physically present during the critical, or rose portions of the service, furnished by the resident. I participated in the management of the patient.
[2019-04-15 07:28] LABS: ABS Basophils 0.1 10^3/ul (0-0.2); ABS Eosinophils 0.1 10^3/ul (0-0.6); ABS Lymphocytes 1.9 10^3/ul (1.0-4.8); ABS Neutrophils 6.5 10^3/ul (1.5-7.7); Eosinophil % 1.1 %; Hematocrit 34 % (42-52); Lymphocyte % 19.5 %; Mean Corpuscular HGB Conc 35 g/dL (31-36); Mean Corpuscular Hemoglobin 31 pg (27-31); Mean Corpuscular Volume 89 fL (80-94); Mean Platelet Volume 7.2 fL (7.4-10.4); Platelet Count 306 10^3/uL (150-450); Red Blood Count 3.89 10^6 /uL (4.18-5.48); Red Cell Distribution Width 13 % (10-15); White Blood Count 9.6 10^3/uL (3.5-10.8)
[2019-04-15 07:44] LABS: BUN/Creatinine Ratio 31.3 (8-20); Calcium 8.9 mg/dL (8.6-10.3); EGFR African American 140.3 (>60); Potassium 3.4 mmol/L (3.5-5.0)
[2019-04-15] MEDS: busPIRone TAB* 10 MG PO SCH ×2 (08:49→13:14)
[2019-04-15] MEDS: Oseltamivir CAP* 75 MG CAP PO SCH (08:49)
[2019-04-15] MEDS: Amantadine SOLN* ORALSYR 10 MG/ML ML PO SCH (08:49)
[2019-04-15] MEDS: Pantoprazole IV* 40 MG IV SCH (10:39)
[2019-04-15 13:28] LABS: Urine Appearance Clear; Urine Bilirubin Negative (Negative); Urine Blood Negative (Negative); Urine Color Yellow; Urine Glucose 1+(50 mg/dL) (Negative); Urine Ketones 2+ (Negative); Urine Nitrite Negative (Negative); Urine Protein Negative (Negative); Urine Specific Gravity 1.024 (1.010-1.030); Urine Urobilinogen Negative (Negative)
[2019-04-15 13:31] LABS: Urine Bacteria Absent (Absent); Urine Red Blood Cell Trace(0-2/hpf) (Absent); Urine White Blood Cell 2+(11-20/hpf) (Absent)
[2019-04-15] MEDS ORDERED: Morphine ORAL CONCENTRATE* 5 MG/0.25 ML ORAL.SYRIN SL PRN (16:03)
[2019-04-15 16:48] VITALS: BP 118/59
--- NOTE | 2019-04-15 17:44 | PN ---
Progress Note - Progress Note Date of Service: 04/15/19 Note: Goals of care discussion. Discussed with Jean Carlos Farfan who is patient brother and his HCP. He is aware about patient ongoing condition and added that patient had difficulty in swallowing even to liquids 6 months ago and he thinks he was aspirating since then. He is aware that his overall prognosis is bad and felt that his quality of life has suffered. we discussed that aspiration is ongoing process and can not be treated given his parkinson and developmental delay. Option like PEG tube for nutrition were discussed but he does not want tubes and make him suffer more. He wants to honour his brother wishes and wants comfort measure only. He would like hospice care and want to make sure that patient is comfortable. This was discussed with nurse in his group-home and agrees with the plan MOLST form changed to comfort measures.
--- NOTE | 2019-04-15 18:39 | CONSULT ---
Subjective Date of Service: 04/15/19 Interval History: Mr. Farfan is a 74 yo male with PMH significant for seizure disorder, developmental delay, COPD, Parkinson's disease, and prostate caner; who presented to the emergency room with complaints of weakness. He was admitted to the hospital for possible PNA. He was documented as having a left buttock pressure injury on admission. NSG staff having been treating the wound with barrier cream. Patient seen and examined at bedside. Family History: Unchanged from Admission Social History: Unchanged from Admission Past Medical History: Unchanged from Admission Review of Systems - Measurements Intake and Output: Intake and Output Last 24 Hours 04/13/19 04/14/19 04/15/19 04/16/19 06:59 06:59 06:59 06:59 Intake Total 880 886 8845 0 Output Total 675 1025 575 225 Balance -475 -775 2675 -225 Weight 147 lb 11.2 oz Intake: IV Fluids 250 2750 ABX - FLAGYL 100 NS (0.9%) 250 2650 IVPB 200 500 ABX - CEFTRIAXONE 150 ABX - FLAGYL 200 300 Fluconazole 50 Oral 0 0 0 0 Output: Urine 100 325 Albrecht 575 1025 250 225 Other: # Bowel Movements 0 0 0 0 - Review of Systems Constitutional Symptoms: Negative: Fever, Other - Chills Dermatology: Positive: Other - Open wound to buttock Neurology: Positive: Other - Parkinson's disease Objective Active Medications: Acetaminophen (Tylenol 650 Mg Supp) [address] Q4H PRN Reason: MILD PAIN or TEMP > 100.4 Morphine Sulfate (Morphine Oral Concentrate*) 5 mg SL Q2H PRN Reason: PAIN - MILD Vital Signs 04/15/19 04/15/19 15:27 17:05 Temperature 97.9 F Pulse Rate 87 Respiratory 23 24 Rate Blood Pressure 118/59 (mmHg) O2 Sat by Pulse 93 Oximetry Oxygen Devices in Use Now: OxyMask Appearance: NAD, laying in bed Ears/Nose/Mouth/Throat: Mucous Membranes Moist Respiratory: Symmetrical Chest Expansion and Respiratory Effort Extremities: - - UE contractures Skin: - - See skin note below Neurological: - - Alert, unable to determine orientation Result Diagrams: 04/15/19 07:20 04/15/19 07:20 Skin Deviation Note - Skin Deviation Findings Buttocks - There are several small superficial open areas to the left buttock, total area measures 3.5 cm x 1 cm x 0.1 cm. The wound bases are pink and red epithelial tissue. There is a scant to small amount of serosang drainage. The surrounding skin is intact. There is no odor. Wound Problem/Plan Assessment: Mr. Farfan is a 74 yo male with PMH significant for seizure disorder, developmental delay, COPD, Parkinson's disease, and prostate caner; who presented to the emergency room with complaints of weakness. He was admitted to the hospital for possible PNA. He was documented as having a left buttock pressure injury on admission. 1. Open areas to left buttock. Suspect this is multifactorial - friction and pressure (stage 2). Recommend applying barrier cream (orange top) as needed to the area. Incontinence care as needed. Frequent turning and repositioning. Use friction reduction device to move in bed. Do not sit up in a chair for more than 2 hours at a time. 2. Parkinson's disease. Will not check a prealbumin as family has requested for comfort care at this time. 3. Nutrition. Comfort care diet. 4. Code Status. DNR. 5. Disposition. Inpatient, disposition per primary medicine. TIME SPENT: Time for this wound consultation was 20 minutes and 10 minutes was spent at bedside assessing, measuring, and photographing the wound; repositioning the patient. Is Patient a Wound Clinic Patient: No Attending: Maria Guadalupe Merrill
[2019-04-16] MEDS: Morphine ORAL CONCENTRATE* 5 MG/0.25 ML ORAL.SYRIN SL PRN ×6 (11:43→23:35)
--- NOTE | 2019-04-16 16:38 | DS ---
Resident Discharge Summary Discharge Summary: Date of Admission: 04/12/19 Date of Discharge: Admitting MD: Meeta Dozier NP Attending MD: Corazon Tran MD Primary Care Physician: Anastasiya Cardenas MD Disposition: Condition: Primary Diagnosis: 1. Aspiration Pneumonia 2. Urinary Tract Infection 3. Decubitus Ulcer Secondary Diagnosis: 1. Parkinson disease 2. Developmental delay 3. COPD 4. Prostate cancer Diagnostic Imagin. Brain CT: Negative for intracranial pathology. 2. Chest/Thorax CTA: No evidence of PE. Mild right basilar infiltrate representing early pneumonia. 3. Chest X-ray: No evidence of active cardio-pulmonary disease. Pertinent Laboratory Results: Laboratory Last Values WBC 9.6 10^3/uL (3.5-10.8) 04/15/19 07:20 RBC 3.89 10^6 /uL (4.18-5.48) L 04/15/19 07:20 Hgb 12.0 g/dL (14.0-18.0) L 04/15/19 07:20 Hct 34 % (42-52) L 04/15/19 07:20 MCV 89 fL (80-94) 04/15/19 07:20 MCH 31 pg (27-31) 04/15/19 07:20 MCHC 35 g/dL (31-36) 04/15/19 07:20 RDW 13 % (10-15) 04/15/19 07:20 Plt Count 306 10^3/uL (150-450) 04/15/19 07:20 MPV 7.2 fL (7.4-10.4) L 04/15/19 07:20 Neut % (Auto) 68.0 % 04/15/19 07:20 Lymph % (Auto) 19.5 % 04/15/19 07:20 [place] % (Auto) 10.8 % 04/15/19 07:20 Eos % (Auto) 1.1 % 04/15/19 07:20 Baso % (Auto) 0.6 % 04/15/19 07:20 Absolute Neuts (auto) 6.5 10^3/ul (1.5-7.7) 04/15/19 07:20 Absolute Lymphs (auto) 1.9 10^3/ul (1.0-4.8) 04/15/19 07:20 Absolute Monos (auto) 1.0 10^3/ul (0-0.8) H 04/15/19 07:20 Absolute Eos (auto) 0.1 10^3/ul (0-0.6) 04/15/19 07:20 Absolute Basos (auto) 0.1 10^3/ul (0-0.2) 04/15/19 07:20 Absolute Nucleated RBC 0.0 10^3/ul 04/15/19 07:20 Nucleated RBC % 0.0 04/15/19 07:20 INR (Anticoag Therapy) 1.21 (0.82-1.09) H 04/12/19 15:04 APTT 56.3 seconds (26.0-38.0) H 04/12/19 15:04 Sodium 143 mmol/L (135-145) 04/15/19 07:20 Potassium 3.4 mmol/L (3.5-5.0) L 04/15/19 07:20 Chloride 110 mmol/L (101-111) 04/15/19 07:20 Carbon Dioxide 22 mmol/L (22-32) 04/15/19 07:20 Anion Gap 11 mmol/L (2-11) 04/15/19 07:20 BUN 21 mg/dL (6-24) 04/15/19 07:20 Creatinine 0.67 mg/dL (0.67-1.17) 04/15/19 07:20 Est GFR ( Amer) 140.3 (>60) 04/15/19 07:20 Est GFR (Non-Af Amer) 116.0 (>60) 04/15/19 07:20 BUN/Creatinine Ratio 31.3 (8-20) H 04/15/19 07:20 Glucose 109 mg/dL (70-100) H 04/15/19 07:20 POC Glucose (mg/dL) 108 mg/dL (70-100) H 04/14/19 21:12 Lactic Acid 1.3 mmol/L (0.5-2.0) 04/12/19 15:04 Calcium 8.9 mg/dL (8.6-10.3) 04/15/19 07:20 Total Bilirubin 1.20 mg/dL (0.2-1.0) H 04/12/19 15:04 AST 26 U/L (13-39) 04/12/19 15:04 ALT 18 U/L (7-52) 04/12/19 15:04 Alkaline Phosphatase 87 U/L (34-104) 04/12/19 15:04 Ammonia 43 mcmol/L (16-53) 04/14/19 07:06 Troponin I 0.01 ng/mL (<0.03) 04/12/19 15:04 Total Protein 7.1 g/dL (6.4-8.9) 04/12/19 15:04 Albumin 4.1 g/dL (3.2-5.2) 04/12/19 15:04 Globulin 3.0 g/dL (2-4) 04/12/19 15:04 Albumin/Globulin Ratio 1.4 (1-3) 04/12/19 15:04 Vitamin B12 932 pg/mL (180-914) H 04/14/19 07:06 Folate > 20.00 ng/mL (>3.99) 04/14/19 07:06 TSH 2.12 mcIU/mL (0.34-5.60) 04/14/19 07:06 Urine Color Yellow 04/15/19 10:05 Urine Appearance Clear 04/15/19 10:05 Urine pH 5.0 (5-9) 04/15/19 10:05 Ur Specific [place] 1.024 (1.010-1.030) 04/15/19 10:05 Urine Protein Negative (Negative) 04/15/19 10:05 Urine Ketones 2+ (Negative) A 04/15/19 10:05 Urine Blood Negative (Negative) 04/15/19 10:05 Urine Nitrate Negative (Negative) 04/15/19 10:05 Urine Bilirubin Negative (Negative) 04/15/19 10:05 Urine Urobilinogen Negative (Negative) 04/15/19 10:05 Ur Leukocyte Esterase 1+ (Negative) A 04/15/19 10:05 Urine WBC (Auto) 2+(11-20/hpf) (Absent) A 04/15/19 10:05 Urine RBC (Auto) Trace(0-2/hpf) (Absent) 04/15/19 10:05 Urine Bacteria Absent (Absent) 04/15/19 10:05 Hyaline Casts Present (Absent) A 04/15/19 10:05 Urine Glucose 1+(50 mg/dl) (Negative) A 04/15/19 10:05 Influenza A (Rapid) Negative (Negative) 04/12/19 16:00 Influenza B (Rapid) Negative (Negative) 04/12/19 16:00 Hospital Course: 74 M with above past history residing in [facility] in [place] presented with decreased oral intake, weakness and decline from the baseline. According to the staff from halfway he was admitted multiple times at [facility] in last couple of weeks for UTI and functional decline.After further investigation in the hospital, he was found to have right sided pneumonia which was secondary to pneumonia. Patient is on chronic indwelling catheter so urine test were sent which grew pseudomonas. Given his pneumonia, hospitalist team was asked to admit the patient. His hospital course by problem is as follows: 1. Aspiration Pneumonia: In the setting of ongoing aspiration secondary to advancing dementia and parkinson disease. At baseline patient was able to have liquid diet but in the hospital patient was seen aspirating even on restricted diet. Speech therapist was consulted who evaluated him multiple times and found that he was aspirating and it is ongoing process. As mentioned in the patient MOLST form patient is DNR/DNI and does not want feeding tube. The only option for nutrition was PEG tube. His brother was contacted and he was clear that patient would never want tube on him. So, after long discussion patient was changed to comfort care honouring the patient wishes; and this information was relayed to halfway as well. Antibiotics was stopped and started on Morphine. He was planned for halfway discharge and was waiting for hospice approval. But unfortunately patient deteriorated and on 04/19 7:47 PM 2. UTI: Secondary to chronic indwelling catheter. Initially, antibiotics were given to cover both pneumonia and UTI but it is stopped now. 3. Exposure to flu: There is a report saying patient was exposed to flu. He was tested for flu and it was negative. Patient was unable to swallow tamiflu. Follow Up Instructions: No follow up. Patient . Attestation Documenting Resident: Caesar Thorne Supervising Physician: Pema Hardy Attestation: This service has been performed in part by a resident under the direction of a teaching physician.I, Pema Hardy, performed the service, or was physically present during the critical, or rose portions of the service, furnished by the resident. I participated in the management of the patient.
--- NOTE | 2019-04-16 16:48 | PN ---
Progress Note - Progress Note Date of Service: 04/16/19 Note: Spoke with [facility] director and they are agreeable with home hospice. Left message for brother to call me.
[2019-04-16] MEDS: LORazepam TAB(*) 0.5 MG PO PRN (18:02)
[2019-04-17] MEDS: LORazepam TAB(*) 0.5 MG PO PRN (03:36)
--- NOTE | 2019-04-17 10:18 | CONSULT ---
Palliative / Hospice Consult Ordering Provider: Caesar Thorne - PCP-Sushma Referal Reason: Hospice transition/no bowel meds/MS - Subjective Code Status: DNR Advance Directives Location: In Chart MOLST Part A Completed: Yes - on chart MOLST Part E Completed:: Yes - on chart - History or Present Illness History or Present Illness: 74yo male with developmental delay and Parkinson disease presents to ER with AMS. PMH is significant for developmental delay, Parkinson disease, chronic in dwelling delvalle catheter, seizure, COPD, prostate ca and cholestectomy. PSHx lives in detention, not , no children no tob, no etoh, no drug use, brother Jean Carlos is HCP. Studies CXR neg, ekg-sinus tach, chest/thorax CTA- no PE, mild R basilar infiltrate possible early pneumonia, brain CT neg, H/H 12/34, BUN /Cr 21/.67, egfr 116, INR 1.21, BC neg, alb 4.1 and UC-E. Coli and P. Aeruginosa. Pt admitted with AMS, aspiration pneumonia, Parkinson and flu exposure. All history is from family and medical record, pt not able to contribute. Lab Values: Laboratory Last Values WBC 9.6 10^3/uL (3.5-10.8) 04/15/19 07:20 RBC 3.89 10^6 /uL (4.18-5.48) L 04/15/19 07:20 Hgb 12.0 g/dL (14.0-18.0) L 04/15/19 07:20 Hct 34 % (42-52) L 04/15/19 07:20 MCV 89 fL (80-94) 04/15/19 07:20 MCH 31 pg (27-31) 04/15/19 07:20 MCHC 35 g/dL (31-36) 04/15/19 07:20 RDW 13 % (10-15) 04/15/19 07:20 Plt Count 306 10^3/uL (150-450) 04/15/19 07:20 MPV 7.2 fL (7.4-10.4) L 04/15/19 07:20 Neut % (Auto) 68.0 % 04/15/19 07:20 Lymph % (Auto) 19.5 % 04/15/19 07:20 [place] % (Auto) 10.8 % 04/15/19 07:20 Eos % (Auto) 1.1 % 04/15/19 07:20 Baso % (Auto) 0.6 % 04/15/19 07:20 Absolute Neuts (auto) 6.5 10^3/ul (1.5-7.7) 04/15/19 07:20 Absolute Lymphs (auto) 1.9 10^3/ul (1.0-4.8) 04/15/19 07:20 Absolute Monos (auto) 1.0 10^3/ul (0-0.8) H 04/15/19 07:20 Absolute Eos (auto) 0.1 10^3/ul (0-0.6) 04/15/19 07:20 Absolute Basos (auto) 0.1 10^3/ul (0-0.2) 04/15/19 07:20 Absolute Nucleated RBC 0.0 10^3/ul 04/15/19 07:20 Nucleated RBC % 0.0 04/15/19 07:20 INR (Anticoag Therapy) 1.21 (0.82-1.09) H 04/12/19 15:04 APTT 56.3 seconds (26.0-38.0) H 04/12/19 15:04 Sodium 143 mmol/L (135-145) 04/15/19 07:20 Potassium 3.4 mmol/L (3.5-5.0) L 04/15/19 07:20 Chloride 110 mmol/L (101-111) 04/15/19 07:20 Carbon Dioxide 22 mmol/L (22-32) 04/15/19 07:20 Anion Gap 11 mmol/L (2-11) 04/15/19 07:20 BUN 21 mg/dL (6-24) 04/15/19 07:20 Creatinine 0.67 mg/dL (0.67-1.17) 04/15/19 07:20 Est GFR ( Amer) 140.3 (>60) 04/15/19 07:20 Est GFR (Non-Af Amer) 116.0 (>60) 04/15/19 07:20 BUN/Creatinine Ratio 31.3 (8-20) H 04/15/19 07:20 Glucose 109 mg/dL (70-100) H 04/15/19 07:20 POC Glucose (mg/dL) 108 mg/dL (70-100) H 04/14/19 21:12 Lactic Acid 1.3 mmol/L (0.5-2.0) 04/12/19 15:04 Calcium 8.9 mg/dL (8.6-10.3) 04/15/19 07:20 Total Bilirubin 1.20 mg/dL (0.2-1.0) H 04/12/19 15:04 AST 26 U/L (13-39) 04/12/19 15:04 ALT 18 U/L (7-52) 04/12/19 15:04 Alkaline Phosphatase 87 U/L (34-104) 04/12/19 15:04 Ammonia 43 mcmol/L (16-53) 04/14/19 07:06 Troponin I 0.01 ng/mL (<0.03) 04/12/19 15:04 Total Protein 7.1 g/dL (6.4-8.9) 04/12/19 15:04 Albumin 4.1 g/dL (3.2-5.2) 04/12/19 15:04 Globulin 3.0 g/dL (2-4) 04/12/19 15:04 Albumin/Globulin Ratio 1.4 (1-3) 04/12/19 15:04 Vitamin B12 932 pg/mL (180-914) H 04/14/19 07:06 Folate > 20.00 ng/mL (>3.99) 04/14/19 07:06 TSH 2.12 mcIU/mL (0.34-5.60) 04/14/19 07:06 Urine Color Yellow 04/15/19 10:05 Urine Appearance Clear 04/15/19 10:05 Urine pH 5.0 (5-9) 04/15/19 10:05 Ur Specific [place] 1.024 (1.010-1.030) 04/15/19 10:05 Urine Protein Negative (Negative) 04/15/19 10:05 Urine Ketones 2+ (Negative) A 04/15/19 10:05 Urine Blood Negative (Negative) 04/15/19 10:05 Urine Nitrate Negative (Negative) 04/15/19 10:05 Urine Bilirubin Negative (Negative) 04/15/19 10:05 Urine Urobilinogen Negative (Negative) 04/15/19 10:05 Ur Leukocyte Esterase 1+ (Negative) A 04/15/19 10:05 Urine WBC (Auto) 2+(11-20/hpf) (Absent) A 04/15/19 10:05 Urine RBC (Auto) Trace(0-2/hpf) (Absent) 04/15/19 10:05 Urine Bacteria Absent (Absent) 04/15/19 10:05 Hyaline Casts Present (Absent) A 04/15/19 10:05 Urine Glucose 1+(50 mg/dl) (Negative) A 04/15/19 10:05 Influenza A (Rapid) Negative (Negative) 04/12/19 16:00 Influenza B (Rapid) Negative (Negative) 04/12/19 16:00 - Objective Active Medications: Acetaminophen (Tylenol 650 Mg Supp) 650 mg NE Q4H PRN PRN Reason: MILD PAIN or TEMP > 100.4 Lorazepam (Ativan Tab(*)) 0.5 mg PO Q4H PRN PRN Reason: ANXIETY Last Admin: 04/17/19 03:36 Dose: 0.5 mg Morphine Sulfate (Morphine Oral Concentrate*) 5 mg SL Q1H PRN PRN Reason: PAIN - MILD Last Admin: 04/16/19 23:35 Dose: 5 mg Vital Signs: Vital Signs: Temp Pulse Resp BP Pulse Ox 98.9 F 103 18 118/59 94 04/16/19 20:00 04/16/19 20:00 04/17/19 08:00 04/15/19 15:27 04/17/19 08:00 Patient Weight: Weight 66.996 kg Intake and Output: Intake & Output 04/15/19 04/16/19 04/17/19 04/18/19 06:59 06:59 06:59 06:59 Intake Total 3250 0 0 0 Output Total 575 225 725 Balance 2675 -225 -725 0 Intake: IV Fluids 2750 ABX - FLAGYL 100 NS (0.9%) 2650 IVPB 500 ABX - CEFTRIAXONE 150 ABX - FLAGYL 300 Fluconazole 50 Oral 0 0 0 0 Output: Urine 325 [place]val[place] 250 225 725 Other: # Bowel Movements 0 0 0 # Voids 2 ADLs: Meal Record Start: 04/12/19 20: 01 Freq: DAILY@0900,1400,1800 Status: Active Protocol: Created 04/12/19 20:01 System (Rec: 04/12/19 20:01 System MED-M22) Document 04/13/19 09:00 [id number] (Rec: 04/13/19 14:58 [id number] MED-C05) Document 04/13/19 14:00 [id number] (Rec: 04/13/19 14:54 [id number] MED-C09) Document 04/13/19 14:00 [id number] (Rec: 04/13/19 14:58 [id number] MED-C05) Document 04/13/19 18:00 [id number] (Rec: 04/13/19 21:58 [id number] MED-C07) Document 04/14/19 07:46 [id number] (Rec: 04/14/19 07:46 [id number] MED-C09) Document 04/14/19 13:12 [id number] (Rec: 04/14/19 14:08 [id number] MED-C09) Document 04/14/19 17:48 [id number] (Rec: 04/14/19 17:48 [id number] MED-C09) Document 04/15/19 09:00 [id number] (Rec: 04/15/19 09:16 [id number] MED-C09) Document 04/15/19 12:36 [id number] (Rec: 04/15/19 12:36 [id number] MED-C11) Document 04/15/19 18:23 [id number] (Rec: 04/15/19 18:24 [id number] MED-C11) Document 04/16/19 08:45 [id number] (Rec: 04/16/19 08:46 [id number] MED-C11) Document 04/16/19 13:44 [id number] (Rec: 04/16/19 13:45 [id number] MED-C11) Document 04/16/19 18:00 [id number] (Rec: 04/16/19 21:01 [id number] MED-C04) Document 04/17/19 09:00 [id number] (Rec: 04/17/19 09:11 [id number] MED-C11) Intake and Output Start: 04/12/19 14: 20 Freq: Status: Complete Protocol: Created 04/12/19 14:20 System (Rec: 04/12/19 14:20 System [id number]) Intake and Output Start: 04/12/19 20: 01 Freq: DAILY@0600,1400,2200 Status: Active Protocol: Created 04/12/19 20:01 System (Rec: 04/12/19 20:01 System MED-M22) Document 04/12/19 22:00 [id number] (Rec: 04/12/19 22:19 [id number] MED-C11) Document 04/13/19 06:00 [id number] (Rec: 04/13/19 06:24 [id number] MED-C09) Document 04/13/19 14:00 [id number] (Rec: 04/13/19 14:54 [id number] MED-C09) Document 04/13/19 22:00 [id number] (Rec: 04/13/19 22:03 [id number] MED-C07) Document 04/14/19 06:00 [id number] (Rec: 04/14/19 06:39 [id number] MED-C15) Document 04/14/19 13:12 [id number] (Rec: 04/14/19 14:08 [id number] MED-C09) Document 04/14/19 22:00 [id number] (Rec: 04/14/19 23:51 [id number] MED-C09) Document 04/15/19 05:54 [id number] (Rec: 04/15/19 05:55 [id number] MED-C02) Document 04/15/19 13:53 [id number] (Rec: 04/15/19 13:53 [id number] MED-C09) Document 04/15/19 23:39 [id number] (Rec: 04/15/19 23:39 [id number] MED-M09) Document 04/16/19 13:44 [id number] (Rec: 04/16/19 13:45 [id number] MED-C11) Document 04/16/19 21:59 [id number] (Rec: 04/16/19 22:00 [id number] MED-C11) Document 04/17/19 05:28 [id number] (Rec: 04/17/19 05:29 [id number] MED-C11) Ears/Nose/Mouth/Throat: Mucous Membranes Moist Neck: NL Appearance and Movements; NL JVP Cardiovascular: NL Sounds; No Murmurs; No JVD Respiratory: Symmetrical Chest Expansion and Respiratory Effort Abdominal: NL Sounds; No Tenderness; No Distention Extremities: No Edema - Assessment Assessment: 74yo male with developmental delay and chronic aspiration, family requesting hospice - Plan Consult Plan (MU): Hospice Plan: Spoke with [facility] child care provider who is preparing for pt to be on hospice when discharged from hospital. Also reached out to pt's brother who is a logistics operations manager. He plans to be with pt at transport but isn't coming to hospital otherwise and was okay talking over the phone. His concerns are centered around transitioning to hospice, pt being able to swallow pills which he has a lot of trouble with and being non verbal and not able to request meds for discomfort/ anxiety. He would prefer if meds were scheduled. Brother feels pt has been declining and doesn't want him to suffer with repeated pneumonias from aspiration. Hospice information discussed with brother referral sent and awaiting sign on. Pt is eligible for hospice with diagnosis of progressive Parkinson disease and recurrent aspiration pneumonias. KPS 40%, PPS 40% - Time On Unit Date of Evaluation: 04/17/19 Hospice Consult Time in: 09:00 Hospice Consult Time Out: 10:00 Hospice Consult Time Total: 60 > 50% of Time Spend In Counseling or Coordinating Care: Yes
[2019-04-17] MEDS: Morphine ORAL CONCENTRATE* 5 MG/0.25 ML ORAL.SYRIN SL PRN (11:05)
[2019-04-17] MEDS ORDERED: Morphine ORAL CONCENTRATE* 5 MG/0.25 ML ORAL.SYRIN SL PRN (13:55)
--- NOTE | 2019-04-17 14:03 | PN ---
Subjective Date of Service: 04/17/19 Interval History: HD 6 on 04/17 NO acute overnight events. Vitals stable; on 4 L of oxygen Patient making eye contact and following command. Seems to be moaning. Morphine given as he looked uncomfortable. will schedule morphine dose waiting to hear back from hospice Objective Active Medications: Acetaminophen (Tylenol 650 Mg Supp) 650 mg TN Q4H PRN PRN Reason: MILD PAIN or TEMP > 100.4 Lorazepam (Ativan Tab(*)) 0.5 mg PO Q4H PRN PRN Reason: ANXIETY Last Admin: 04/17/19 03:36 Dose: 0.5 mg Morphine Sulfate (Morphine Oral Concentrate*) 5 mg SL Q1H PRN PRN Reason: PAIN - MODERATE Morphine Sulfate (Morphine Oral Concentrate*) 5 mg SL Q4H ANGIE Vital Signs - 8 hr 04/17/19 04/17/19 04/17/19 06:00 08:00 11:05 Respiratory 16 18 16 Rate O2 Sat by Pulse 94 Oximetry Oxygen Devices in Use Now: OxyMask Exam: Appearance: confused, mouth wide open Ears/Nose/Mouth/Throat: Mucous Membranes dry and crusted. Respiratory: Symmetrical Chest Expansion and Respiratory Effort, crackles heard all over lungs. Cardiovascular: NL Sounds; No Murmurs; No JVD, RRR Abdominal: NL Sounds; No Tenderness; No Distention, No Hepatosplenomegaly Extremities: no edema; contractures present Neurological: making incomhrehensible sound; makes eye contact Result Diagrams: 04/15/19 07:20 04/15/19 07:20 Microbiology and Other Data: Microbiology 04/12/19 15:04 Aerobic Blood Culture - Preliminary Blood Venous No Growth Day 3 Anaerobic Blood Culture - Preliminary No Growth Day 3 04/12/19 15:04 Aerobic Blood Culture - Preliminary Blood Venous No Growth Day 3 Anaerobic Blood Culture - Preliminary No Growth Day 3 04/12/19 17:39 Urine Culture - Preliminary Urine Pseudomonas Aeruginosa#2 Escherichia Coli 04/12/19 19:25 Nasal Screen MRSA (PCR) - Final Nasal Mrsa Detected Diagnostic Imaging: CTH: 04/14 IMPRESSION: NO ACUTE INTRACRANIAL PATHOLOGY. CTA 04/13: IMPRESSION: No evidence of PE. Mild right basilar infiltrate which may represent a developing pneumonia. 1 of 2 Assess/Plan/Problems-Billing Assessment: Matt Farfan is a 74y/o male with history of developmental delay, COPD, remote history of prostate CA, newly diagnosed parkinson disease, presented with altered mental status, failure to thrive, found to have aspiration pneumonia, and likely thrush. Now having dysphagia; pending swallow eval; Urine growing Pseudomonas. Now on comfort care. - Patient Problems (1) Altered mental status Current Visit: Yes Status: Acute Code(s): R41.82 - ALTERED MENTAL STATUS, UNSPECIFIED SNOMED Code(s): 055826237 Comment: - multifactorial: developmental delay, worsening parkinson and from infections( pneumonia+UTI) - ct brain negative for acute intracranial pathology -ongoing aspiration even with restricted diet- evaluated by speech therapy. -Spoke to his brother-varinder: does not PEG tube and wamts comfort measures only to honour patient wishes. -stopped abx and antifungals. (2) Aspiration pneumonia Current Visit: Yes Status: Acute Code(s): J69.0 - PNEUMONITIS DUE TO INHALATION OF FOOD AND VOMIT SNOMED Code(s): 189138977 Comment: - swallow eval as mentioned. -comfort care now. (3) UTI (urinary tract infection) Current Visit: Yes Status: Acute Comment: -has chronic delvalle catheter; has recurrent UTI -urine culture- pseudomonas -stopped abx (4) Exposure to the flu Current Visit: Yes Status: Acute Code(s): Z20.828 - CONTACT W AND EXPOSURE TO OTH VIRAL COMMUNICABLE DISEASES SNOMED Code(s): 206145879 Comment: - flu negative -comfort care. (5) Thrush Current Visit: Yes Status: Acute Code(s): B37.0 - CANDIDAL STOMATITIS SNOMED Code(s): 93828200 Comment: - was thought to have thrush on admission - more yellowish crust inside the mouth; less likey thrush -has dysphagia- could be from dried crust or bad oral hygiene or has underlying esophagitis; patient cannot provide much history -maintain oral hygiene (6) DVT prophylaxis Current Visit: Yes Status: Acute Code(s): Z29.9 - ENCOUNTER FOR PROPHYLACTIC MEASURES, UNSPECIFIED SNOMED Code(s): 288304994 Comment: none (7) DNR (do not resuscitate) Current Visit: Yes Status: Acute Status and Disposition: Inpatient Medicine. palliative care consult placed -waiting hospice approval Attending: Florinda Hogan Attestation Documenting Resident: Caesar Thorne Supervising Physician: Florinda Hogan Attending/Supervising Physician Comment: Agree with resident note and findings. Attending A/P: Mr Farfan is a 74yo M with developmental delay, Parkinsons disease with chronic delvalle, [facility] who presented with AMS thought to be attributed to aspiration PNA with now evidence of ongoing aspiration with worsening mental status and Pseudomonas UTI discovered 04/14/19. Plan At this time the patient's family has opted for hospice. Currently waiting for d /c as he needs to be signed on to hospice the same day. Continue comfort measures. Attestation: This service has been performed in part by a resident under the direction of a teaching physician.I, Florinda Hogan, performed the service, or was physically present during the critical, or rose portions of the service, furnished by the resident. I participated in the management of the patient.
[2019-04-17] MEDS: Morphine ORAL CONCENTRATE* 5 MG/0.25 ML ORAL.SYRIN SL SCH ×3 (15:21→22:23)
[2019-04-18] MEDS: Morphine ORAL CONCENTRATE* 5 MG/0.25 ML ORAL.SYRIN SL PRN ×6 (00:16→21:20)
[2019-04-18] MEDS: LORazepam TAB(*) 0.5 MG PO PRN (02:41)
[2019-04-18] MEDS: Morphine ORAL CONCENTRATE* 5 MG/0.25 ML ORAL.SYRIN SL SCH ×6 (02:41→23:10)
[2019-04-18] MEDS: Atropine 1% (ORAL/SL)* 15 ML BTL SL PRN ×2 (03:35→07:51)
--- NOTE | 2019-04-18 15:23 | PN ---
Subjective Date of Service: 04/18/19 Interval History: HD 7 on 04/18 NO acute overnight events. Vitals: tachypnea; on 4 L of oxygen Patient deteriorating today. Not making eye contact and not following command. Goal: make patient comfortable. Objective Active Medications: Acetaminophen (Tylenol 650 Mg Supp) 650 mg [place] Q4H PRN PRN Reason: MILD PAIN or TEMP > 100.4 Atropine Sulfate (Atropine 1% (Oral/Sl)*) 2 drop SL Q2H PRN PRN Reason: SIALORRHEA Last Admin: 04/18/19 07:51 Dose: 2 drop Lorazepam (Ativan Tab(*)) 0.5 mg PO Q4H PRN PRN Reason: ANXIETY Last Admin: 04/18/19 02:41 Dose: 0.5 mg Morphine Sulfate (Morphine Oral Concentrate*) 5 mg SL Q1H PRN PRN Reason: PAIN - MODERATE Last Admin: 04/18/19 07:51 Dose: 5 mg Morphine Sulfate (Morphine Oral Concentrate*) 5 mg SL Q4H ANGIE Last Admin: 04/18/19 14:39 Dose: 5 mg Vital Signs - 8 hr 04/18/19 04/18/19 04/18/19 07:51 08:00 08:30 Respiratory 28 28 28 Rate 04/18/19 04/18/19 04/18/19 11:35 12:01 14:39 Respiratory 28 32 28 Rate Oxygen Devices in Use Now: Nasal Cannula Exam: Appearance: confused, mouth wide open Ears/Nose/Mouth/Throat: Mucous Membranes dry and crusted. Respiratory: Symmetrical Chest Expansion and Respiratory Effort, crackles heard all over lungs. Cardiovascular: NL Sounds; No Murmurs; No JVD, RRR Abdominal: NL Sounds; No Tenderness; No Distention, No Hepatosplenomegaly Extremities: no edema; contractures present Neurological: making incomhrehensible sound; makes eye contact Result Diagrams: 04/15/19 07:20 04/15/19 07:20 Microbiology and Other Data: Microbiology 04/12/19 15:04 Aerobic Blood Culture - Preliminary Blood Venous No Growth Day 3 Anaerobic Blood Culture - Preliminary No Growth Day 3 04/12/19 15:04 Aerobic Blood Culture - Preliminary Blood Venous No Growth Day 3 Anaerobic Blood Culture - Preliminary No Growth Day 3 04/12/19 17:39 Urine Culture - Preliminary Urine Pseudomonas Aeruginosa#2 Escherichia Coli 04/12/19 19:25 Nasal Screen MRSA (PCR) - Final Nasal Mrsa Detected Diagnostic Imaging: CTH: 04/14 IMPRESSION: NO ACUTE INTRACRANIAL PATHOLOGY. CTA 04/13: IMPRESSION: No evidence of PE. Mild right basilar infiltrate which may represent a developing pneumonia. 1 of 2 Assess/Plan/Problems-Billing Assessment: Matt Farfan is a 74y/o male with history of developmental delay, COPD, remote history of prostate CA, newly diagnosed parkinson disease, presented with altered mental status, failure to thrive, found to have aspiration pneumonia, and likely thrush. Now having dysphagia; pending swallow eval; Urine growing Pseudomonas. Now on comfort care. - Patient Problems (1) Altered mental status Current Visit: Yes Status: Acute Code(s): R41.82 - ALTERED MENTAL STATUS, UNSPECIFIED SNOMED Code(s): 909303666 Comment: - multifactorial: developmental delay, worsening parkinson and from infections( pneumonia+UTI) - ct brain negative for acute intracranial pathology -ongoing aspiration even with restricted diet- evaluated by speech therapy. -Spoke to his brother-varinder: does not want PEG tube and wants comfort measures only to honour patient wishes. -stopped abx and antifungals. (2) Aspiration pneumonia Current Visit: Yes Status: Acute Code(s): J69.0 - PNEUMONITIS DUE TO INHALATION OF FOOD AND VOMIT SNOMED Code(s): 899802114 Comment: - swallow eval as mentioned. -comfort care now. (3) UTI (urinary tract infection) Current Visit: Yes Status: Acute Comment: -has chronic delvalle catheter; has recurrent UTI -urine culture- pseudomonas -stopped abx (4) Exposure to the flu Current Visit: Yes Status: Acute Code(s): Z20.828 - CONTACT W AND EXPOSURE TO OTH VIRAL COMMUNICABLE DISEASES SNOMED Code(s): 307933378 Comment: - flu negative -comfort care. (5) Thrush Current Visit: Yes Status: Acute Code(s): B37.0 - CANDIDAL STOMATITIS SNOMED Code(s): 46554982 Comment: - was thought to have thrush on admission - more yellowish crust inside the mouth; less likey thrush -has dysphagia- could be from dried crust or bad oral hygiene or has underlying esophagitis; patient cannot provide much history -maintain oral hygiene (6) DVT prophylaxis Current Visit: Yes Status: Acute Code(s): Z29.9 - ENCOUNTER FOR PROPHYLACTIC MEASURES, UNSPECIFIED SNOMED Code(s): 882636698 Comment: none (7) DNR (do not resuscitate) Current Visit: Yes Status: Acute Status and Disposition: Inpatient Medicine. palliative care consult placed -waiting hospice approval Attending: Pema Hardy Attestation Documenting Resident: Caesar Thorne Supervising Physician: Pema Hardy Attestation: This service has been performed in part by a resident under the direction of a teaching physician.I, Pema Hardy, performed the service, or was physically present during the critical, or rose portions of the service, furnished by the resident. I participated in the management of the patient.
[2019-04-19] MEDS: Morphine ORAL CONCENTRATE* 5 MG/0.25 ML ORAL.SYRIN SL PRN ×6 (00:40→18:21)
[2019-04-19] MEDS: LORazepam TAB(*) 0.5 MG PO PRN ×4 (00:40→16:57)
[2019-04-19] MEDS: Morphine ORAL CONCENTRATE* 5 MG/0.25 ML ORAL.SYRIN SL SCH ×5 (02:05→16:58)
--- NOTE | 2019-04-19 13:26 | PN ---
Subjective Date of Service: 04/19/19 Interval History: HD 8 on 04/19 NO acute overnight events. Vitals: tachypnea; on 4 L of oxygen patient deteriorating more. Mouth wide open. Not making eye contact. Goal is to make patient comfortable. Objective Active Medications: Acetaminophen (Tylenol 650 Mg Supp) 650 mg [place] Q4H PRN PRN Reason: MILD PAIN or TEMP > 100.4 Atropine Sulfate (Atropine 1% (Oral/Sl)*) 2 drop SL Q2H PRN PRN Reason: SIALORRHEA Last Admin: 04/18/19 07:51 Dose: 2 drop Lorazepam (Ativan Tab(*)) 0.5 mg PO Q4H PRN PRN Reason: ANXIETY Last Admin: 04/19/19 12:44 Dose: 0.5 mg Morphine Sulfate (Morphine Oral Concentrate*) 5 mg SL Q1H PRN PRN Reason: PAIN - MODERATE Last Admin: 04/19/19 12:42 Dose: 5 mg Morphine Sulfate (Morphine Oral Concentrate*) 5 mg SL Q4H ANGIE Last Admin: 04/19/19 10:18 Dose: 5 mg Vital Signs - 8 hr 04/19/19 04/19/19 04/19/19 05:19 05:57 06:13 Temperature Pulse Rate Respiratory 20 18 18 Rate O2 Sat by Pulse Oximetry 04/19/19 04/19/19 04/19/19 07:37 07:41 07:42 Temperature 98.3 F Pulse Rate 124 Respiratory 18 18 18 Rate O2 Sat by Pulse 88 Oximetry 04/19/19 04/19/19 04/19/19 08:00 09:04 10:10 Temperature Pulse Rate Respiratory 18 18 20 Rate O2 Sat by Pulse 88 Oximetry 04/19/19 04/19/19 04/19/19 10:18 12:42 12:44 Temperature Pulse Rate Respiratory 20 18 18 Rate O2 Sat by Pulse Oximetry Oxygen Devices in Use Now: Nasal Cannula Exam: ppearance: confused, mouth wide open Ears/Nose/Mouth/Throat: Mucous Membranes dry and crusted. Respiratory: Symmetrical Chest Expansion and Respiratory Effort, crackles heard Cardiovascular: NL Sounds; No Murmurs; No JVD, RRR Abdominal: NL Sounds; No Tenderness; No Distention, No Hepatosplenomegaly Extremities: no edema; contractures present Neurological: making incomhrehensible sound; makes eye contact Result Diagrams: 04/15/19 07:20 04/15/19 07:20 Microbiology and Other Data: Microbiology 04/12/19 15:04 Aerobic Blood Culture - Preliminary Blood Venous No Growth Day 3 Anaerobic Blood Culture - Preliminary No Growth Day 3 04/12/19 15:04 Aerobic Blood Culture - Preliminary Blood Venous No Growth Day 3 Anaerobic Blood Culture - Preliminary No Growth Day 3 04/12/19 17:39 Urine Culture - Preliminary Urine Pseudomonas Aeruginosa#2 Escherichia Coli 04/12/19 19:25 Nasal Screen MRSA (PCR) - Final Nasal Mrsa Detected Diagnostic Imaging: CTH: 04/14 IMPRESSION: NO ACUTE INTRACRANIAL PATHOLOGY. CTA 04/13: IMPRESSION: No evidence of PE. Mild right basilar infiltrate which may represent a developing pneumonia. 1 of 2 Assess/Plan/Problems-Billing Assessment: Matt Farfan is a 74y/o male with history of developmental delay, COPD, remote history of prostate CA, newly diagnosed parkinson disease, presented with altered mental status, failure to thrive, found to have aspiration pneumonia, and likely thrush. Now having dysphagia; pending swallow eval; Urine growing Pseudomonas. Now on comfort care. - Patient Problems (1) Altered mental status Current Visit: Yes Status: Acute Code(s): R41.82 - ALTERED MENTAL STATUS, UNSPECIFIED SNOMED Code(s): 290553901 Comment: - multifactorial: developmental delay, worsening parkinson and from infections( pneumonia+UTI) - ct brain negative for acute intracranial pathology -ongoing aspiration even with restricted diet- evaluated by speech therapy. -Spoke to his brother-varinder: does not want PEG tube and wants comfort measures only to honour patient wishes. -stopped abx and antifungals. (2) Aspiration pneumonia Current Visit: Yes Status: Acute Code(s): J69.0 - PNEUMONITIS DUE TO INHALATION OF FOOD AND VOMIT SNOMED Code(s): 157128761 Comment: - swallow eval as mentioned. -comfort care now. (3) UTI (urinary tract infection) Current Visit: Yes Status: Acute Comment: -has chronic delvalle catheter; has recurrent UTI -urine culture- pseudomonas -stopped abx (4) Exposure to the flu Current Visit: Yes Status: Acute Code(s): Z20.828 - CONTACT W AND EXPOSURE TO OTH VIRAL COMMUNICABLE DISEASES SNOMED Code(s): 891461542 Comment: - flu negative -comfort care. (5) Thrush Current Visit: Yes Status: Acute Code(s): B37.0 - CANDIDAL STOMATITIS SNOMED Code(s): 95950240 Comment: - was thought to have thrush on admission - more yellowish crust inside the mouth; less likey thrush -has dysphagia- could be from dried crust or bad oral hygiene or has underlying esophagitis; patient cannot provide much history -maintain oral hygiene (6) DVT prophylaxis Current Visit: Yes Status: Acute Code(s): Z29.9 - ENCOUNTER FOR PROPHYLACTIC MEASURES, UNSPECIFIED SNOMED Code(s): 452989770 Comment: none (7) DNR (do not resuscitate) Current Visit: Yes Status: Acute Status and Disposition: Inpatient Medicine. palliative care consult placed -waiting hospice approval Attending: Pema Hardy Attestation Documenting Resident: Caesar Thorne Supervising Physician: Pema Hardy Attestation: This service has been performed in part by a resident under the direction of a teaching physician.I, Pema Hardy, performed the service, or was physically present during the critical, or rose portions of the service, furnished by the resident. I participated in the management of the patient.
[2019-04-19] MEDS ORDERED: Morphine ORAL CONCENTRATE* 5 MG/0.25 ML ORAL.SYRIN SL SCH (18:37)
[2019-04-19] MEDS ORDERED: Morphine ORAL CONCENTRATE* 5 MG/0.25 ML ORAL.SYRIN SL PRN (18:37)
--- NOTE | 2019-04-19 19:56 | PN ---
Hospitalist Progress Note Date of Service: 04/19/19 Called by RN that patient as suspected to have . Pt was on comfort care. Physical Exam: No auscultated heart sounds or breath sounds. Pupils are mid-dilated and fixed. No scleral reflex. No palpable pulses. No response to noxious stimuli. Time of pronounced 7:47pm. Patient's family has declined autopsy.
== END 2019-04-19 19:26 | disposition expired | DRG 178 ==
LOC: ED 14:13 → MED 19:15
PROVIDERS: ADMIT Nurse Practitioner Acute Care; ATTEND Internal Medicine
DX: J69.0 Pneumonitis due to inhalation of food and vomit (principal); T83.511A Infection and inflammatory reaction due to indwelling urethral catheter, initial encounter; B37.0 Candidal stomatitis; L89.322 Pressure ulcer of left buttock, stage 2; G20 Parkinson's disease; F02.80 Dementia in other diseases classified elsewhere, unspecified severity, without behavioral disturbance, psychotic disturbance, mood disturbance, and anxiety; B96.5 Pseudomonas (aeruginosa) (mallei) (pseudomallei) as the cause of diseases classified elsewhere; B96.20 Unspecified Escherichia coli [E. coli] as the cause of diseases classified elsewhere; Z66 Do not resuscitate; J44.9 Chronic obstructive pulmonary disease, unspecified; M62.449 Contracture of muscle, unspecified hand; Z51.5 Encounter for palliative care; R62.50 Unspecified lack of expected normal physiological development in childhood; R62.7 Adult failure to thrive; R13.10 Dysphagia, unspecified; R41.82 Altered mental status, unspecified; Z20.828 Contact with and (suspected) exposure to other viral communicable diseases; Z86.69 Personal history of other diseases of the nervous system and sense organs; Z85.46 Personal history of malignant neoplasm of prostate; Z79.899 Other long term (current) drug therapy; Z88.0 Allergy status to penicillin; Z88.8 Allergy status to other drugs, medicaments and biological substances; Z68.20 Body mass index [BMI] 20.0-20.9, adult
CPT/HCPCS: 36415; 70450; 71045; 71275; 80048; 80053; 81003; 81015; 82140; 82607; 82746; 83605; 84443; 84484; 85025; 85610; 85730; 87040; 87077; 87086; 87186; 87641; 93005; 96361; 96374; 99285; A9270-GY; J0692; J0696; J1450; J1644; Q9967